=== PATIENT | female | born 1970 | race Caucasian/White ===

== ENCOUNTER 2016-08-22 13:38 | Inpatient (IN) | payer MEDICAID ==
[2016-08-22] MEDS ORDERED: Lactated Ringers 1,000 ML IV ONE (14:45)
[2016-08-22] MEDS ORDERED: HYDROmorphone 1 MG/ML Syringe IVPUSH ONE (14:45)
[2016-08-22] MEDS ORDERED: Ondansetron 4 MG/2 ML SDV IVPUSH ONE (14:45)
--- NOTE | 2016-08-22 14:48 | EDM.PDOC ---
[id number] KIDNEY PAIN Time Seen by Provider: 08/22/16 14:41 Source of Information: Reports: Patient, RN Notes Reviewed History Limitations: Reports: No Limitations - History of Present Illness INITIAL COMMENTS - FREE TEXT/NARRATIVE: 45-year-old female presents emergency department today with complaint of left flank pain, states he never had a kidney stone for however she has had urinary tract infections in the past, this feels like a kidney infection to her. She has been nauseated no vomiting she has had fevers no shortness of breath or chest pain no urgency or frequency or dysuria does have history of breast carcinoma status post mastectomy Bilateral Flank Pain Score (Numeric/FACES): 8 - Related Data Allergies Allergy/AdvReac Type Severity Reaction Status Date / Time morphine AdvReac Confusion Verified 08/22/16 14:04 Home Meds: Home Meds Insulin Aspart [NovoLOG] 4 - 10 units SQ QID 08/22/16 [History] Insulin Glarg,Human.Rec.Analog [LantUS Solostar] 30 unit SUBCUT BEDTIME [History] Past Medical History Genitourinary History: Reports: UTI, Recurrent 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: Musculoskeletal History: Reports: Fracture Psychiatric History: Reports: Anxiety, Depression Endocrine/Metabolic History: Reports: Diabetes, Type II Other Hematologic History: factor 5 Other Immunologic History: last chemo 2 years ago Oncologic (Cancer) History: Reports: Breast, Cervix Dermatologic History: Reports: Cellulitis - Past Surgical History GI Surgical History: Reports: Appendectomy Female Surgical History: Reports: Hysterectomy Oncologic Surgical History: Reports: Mastectomy Social & Family History - Tobacco Use Smoking Status *Q: Current Every Day Smoker Years of Tobacco use: 30 Packs/Tins Daily: 0.3 Used Tobacco, but Quit: No Second Hand Smoke Exposure: Yes - Caffeine Use Caffeine Use: Reports: Coffee, Energy Drinks, Soda - Alcohol Use Days Per Week of Alcohol Use: 0 - Recreational Drug Use Recreational Drug Use: Yes Drug Use in Last 12 Months: Yes Recreational Drug Type: Reports: Marijuana/Hashish Recreational Drug Use Frequency: Daily Recreational Drug Last Use: today ED ROS GENERAL - Review of Systems Review Of Systems: See Below Constitutional: Reports: Fever, Chills HEENT: Reports: No Symptoms Respiratory: Reports: No Symptoms, Cough GI/Abdominal: Reports: Nausea. Denies: Vomiting : Reports: Flank Pain Musculoskeletal: Reports: No Symptoms Skin: Reports: No Symptoms ED EXAM, GENERAL - Physical Exam Exam: See Below Exam Limited By: No Limitations General Appearance: Alert, Mild Distress Eye Exam: Bilateral Eye: Normal Inspection Head: Atraumatic, Normocephalic Neck: Normal Inspection, Supple, Non-Tender, Full Range of Motion Respiratory/Chest: No Respiratory Distress, Lungs Clear, Normal Breath Sounds, No Accessory Muscle Use Cardiovascular: Regular Rate, Rhythm, No Murmur GI/Abdominal: Soft, Non-Tender Back Exam: Normal Inspection, Full Range of Motion, CVA Tenderness (L). No: CVA Tenderness (R), Muscle Spasm, Paraspinal Tenderness, Vertebral Tenderness Extremities: Normal Inspection, Non-Tender, No Pedal Edema Course - Vital Signs Last Recorded V/S: Last Vital Signs Temp 96.8 F 08/26/16 07:16 Pulse 86 08/26/16 07:16 Resp 16 08/26/16 07:16 BP 137/79 08/26/16 07:16 Pulse Ox 97 08/26/16 07:16 - Orders/Labs/Meds Orders: Medication Orders Acetaminophen (Tylenol) 650 mg PO Q4H PRN PRN Reason: Pain (Mild 1-3)/fever Last Admin: 08/25/16 03:03 Dose: 650 mg Admin: 08/24/16 16:10 Dose: 650 mg Admin: 08/24/16 06:25 Dose: 650 mg Admin: 08/23/16 12:20 Dose: 650 mg Admin: 08/23/16 08:09 Dose: 650 mg Admin: 08/23/16 00:16 Dose: 650 mg Admin: 08/22/16 18:35 Dose: 650 mg Diphenhydramine HCl (Benadryl) 25 - 50 mg PO Q4H PRN PRN Reason: Itching Hydromorphone HCl (Dilaudid) 2 - 4 mg PO Q4H PRN PRN Reason: Pain Piperacillin/Tazobactam/ (Dextrose 3.375 gm/ Premix) 50 mls @ 100 mls/hr IV Q6H ANIL Last Admin: 08/26/16 03:20 Dose: 100 mls/hr Admin: 08/25/16 21:38 Dose: 100 mls/hr Admin: 08/25/16 16:29 Dose: 100 mls/hr Admin: 08/25/16 09:08 Dose: 100 mls/hr Admin: 08/25/16 03:03 Dose: 100 mls/hr Admin: 08/24/16 22:27 Dose: 100 mls/hr Admin: 08/24/16 14:58 Dose: 100 mls/hr Sodium Chloride (Normal Saline) 1,000 mls @ 75 mls/hr IV ASDIRECTED [facility] Last Admin: 08/26/16 07:11 Dose: 75 mls/hr Infusion: 08/26/16 05:50 Dose: 75 mls/hr Admin: 08/25/16 16:30 Dose: 75 mls/hr Infusion: 08/25/16 16:30 Dose: 75 mls/hr Admin: 08/25/16 09:05 Dose: 75 mls/hr Infusion: 08/25/16 07:01 Dose: 75 mls/hr Admin: 08/24/16 17:41 Dose: 75 mls/hr Aztreonam/Dextrose 1 gm/ (Premix) 50 mls @ 100 mls/hr IV Q8H [facility] Last Admin: 08/26/16 02:23 Dose: 100 mls/hr Admin: 08/25/16 17:19 Dose: 100 mls/hr Admin: 08/25/16 09:07 Dose: 100 mls/hr Admin: 08/25/16 02:22 Dose: 100 mls/hr Admin: 08/24/16 17:44 Dose: 100 mls/hr Insulin Aspart (Novolog) 0 unit SUBCUT QIDACANDBED [facility] PRN Reason: Protocol Last Admin: 08/25/16 21:35 Dose: 4 units Admin: 08/25/16 17:24 Dose: 4 units Admin: 08/25/16 13:14 Dose: Admin: 08/25/16 07:26 Dose: Admin: 08/24/16 22:26 Dose: Admin: 08/24/16 18:30 Dose: Not Given Admin: 08/24/16 13:17 Dose: Not Given Admin: 08/24/16 09:37 Dose: Not Given Admin: 08/23/16 21:27 Dose: 6 units Admin: 08/23/16 17:38 Dose: Admin: 08/23/16 12:17 Dose: 8 units Admin: 08/23/16 08:11 Dose: 6 units Admin: 08/22/16 21:40 Dose: 8 units Admin: 08/22/16 18:40 Dose: 6 units Insulin Aspart (Novolog) 4 unit SUBCUT TIDMEALS [facility] Last Admin: 08/25/16 17:24 Dose: Admin: 08/24/16 13:16 Dose: Not Given Admin: 08/24/16 07:30 Dose: 4 units Admin: 08/23/16 17:37 Dose: 4 units Admin: 08/23/16 12:17 Dose: 4 units Admin: 08/23/16 08:11 Dose: 4 units Admin: 08/22/16 18:39 Dose: 4 units Insulin Detemir (Levemir) 30 unit SUBCUT BEDTIME [facility] Last Admin: 08/25/16 21:18 Dose: Admin: 08/23/16 21:26 Dose: 30 units Admin: 08/22/16 21:38 Dose: 30 units Ketorolac Tromethamine (Toradol) 30 mg IVPUSH Q6H PRN PRN Reason: Pain/Fever Stop: 08/28/16 09:42 Last Admin: 08/24/16 00:08 Dose: 30 mg Admin: 08/23/16 17:28 Dose: 30 mg Admin: 08/23/16 11:03 Dose: 30 mg Lorazepam (Ativan) 1 mg IVPUSH Q4H PRN PRN Reason: Anxiety Last Admin: 08/25/16 20:04 Dose: 1 mg Admin: 08/25/16 07:20 Dose: 1 mg Admin: 08/24/16 01:29 Dose: 1 mg Magnesium Oxide (Magnesium Oxide) 400 mg PO DAILY [facility] Naloxone HCl (Narcan) 0.1 mg IV ASDIRECTED PRN PRN Reason: decreased respiratory rate Nicotine (Habitrol) 21 mg TRDERM DAILY [facility] Last Admin: 08/25/16 09:08 Dose: 21 mg Admin: 08/24/16 09:29 Dose: 21 mg Admin: 08/23/16 21:33 Dose: 21 mg Admin: 08/23/16 08:09 Dose: 21 mg Ondansetron HCl (Zofran Odt) 4 mg PO Q6H PRN PRN Reason: Nausea able to take PO Last Admin: 08/25/16 17:16 Dose: 4 mg Ondansetron HCl (Zofran) 4 mg IV Q6H PRN PRN Reason: Nausea/Vomiting Last Admin: 08/24/16 18:24 Dose: 4 mg Admin: 08/24/16 12:01 Dose: 4 mg Polyethylene Glycol (Miralax) 17 gm PO DAILY PRN PRN Reason: Constipation Senna/Docusate Sodium (Senna Plus) 1 tab PO BID PRN PRN Reason: Constipation Labs: Laboratory Tests 08/22/16 08/22/16 08/22/16 Range/Units 14:19 14:45 14:45 WBC 4.0 L (4.5-11.0) K/uL RBC 5.01 (3.30-5.50) M/uL Hgb 15.5 H (12.0-15.0) g/dL Hct 43.9 (36.0-48.0) % MCV 88 (80-98) fL MCH 31 (27-31) pg MCHC 35 (32-36) % Plt Count 166 (150-400) K/uL Neut % (Auto) 87 H (36-66) % Lymph % (Auto) 9 L (24-44) % Daniels % (Auto) 4 (2-6) % Eos % (Auto) 0 L (2-4) % Baso % (Auto) 1 (0-1) % Puncture Site ABG pH (7.350-7.450) ABG pCO2 (35.0-42.0) mmHg ABG pO2 (75.0-100.0) mmHg ABG HCO3 (22.0-26.0) mmol/L ABG Total CO2 (21.0-25.0) mmol/L ABG O2 Saturation (95.0-98.0) % ABG O2 Content (15.0-23.0) %vol ABG Base Excess mm/L ABG Hemoglobin (12.0-16.0) g/dL ABG Oxyhemoglobin % ABG Carboxyhemoglobin (0.0-1.6) % ABG Methemoglobin % [place]esham Test O2 Delivery Device Sodium 130 L (140-148) mmol/L Potassium 4.3 (3.6-5.2) mmol/L Chloride 93 L (100-108) mmol/L Carbon Dioxide 28 (21-32) mmol/L Anion Gap 13.3 (5.0-14.0) mmol/L BUN 8 (7-18) mg/dL Creatinine 1.0 (0.6-1.0) mg/dL Est Cr Clr Drug Dosing 56.29 mL/min Estimated GFR (MDRD) > 60 (>60) Glucose 549 H* (74-106) mg/dL Lactic Acid (0.4-2.0) mmol/L Calcium 9.1 (8.5-10.1) mg/dL Total Bilirubin 0.4 D (0.2-1.0) mg/dL AST 35 D (15-37) U/L ALT 54 D (12-78) U/L Alkaline Phosphatase 121 H (46-116) U/L C-Reactive Protein 2.78 H (0.0-0.3) mg/dL Total Protein 6.9 (6.4-8.2) g/dL Albumin 3.7 (3.4-5.0) g/dL Globulin 3.2 (2.3-3.5) g/dL Albumin/Globulin Ratio 1.2 (1.2-2.2) Urine Color Yellow Urine Appearance Clear Urine pH 6.5 (4.5-8.0) Ur Specific [place] 1.005 L (1.008-1.030) Urine Protein Negative (NEGATIVE) mg/dL Urine Glucose (UA) 1000 H (NEGATIVE) mg/dL Urine Ketones Negative (NEGATIVE) mg/dL Urine Occult Blood Negative (NEGATIVE) Urine Nitrite Negative (NEGATIVE) Urine Bilirubin Negative (NEGATIVE) Urine Urobilinogen Normal (NORMAL) mg/dL Ur Leukocyte Esterase Large (NEGATIVE) Urine RBC 0-5 (0-5) Urine WBC 75-100 H (0-5) Ur Epithelial Cells Few Amorphous Sediment Not seen Urine Bacteria Moderate Urine Mucus Not seen Ketones (NEGATIVE) 08/22/16 08/22/16 08/22/16 Range/Units 14:45 15:40 15:40 WBC (4.5-11.0) K/uL RBC (3.30-5.50) M/uL Hgb (12.0-15.0) g/dL Hct (36.0-48.0) % MCV (80-98) fL MCH (27-31) pg MCHC (32-36) % Plt Count (150-400) K/uL Neut % (Auto) (36-66) % Lymph % (Auto) (24-44) % Daniels % (Auto) (2-6) % Eos % (Auto) (2-4) % Baso % (Auto) (0-1) % Puncture Site Lt radial ABG pH 7.453 H (7.350-7.450) ABG pCO2 37.0 (35.0-42.0) mmHg ABG pO2 90.6 (75.0-100.0) mmHg ABG HCO3 25.5 (22.0-26.0) mmol/L ABG Total CO2 22.1 (21.0-25.0) mmol/L ABG O2 Saturation 97.6 (95.0-98.0) % ABG O2 Content 18.8 (15.0-23.0) %vol ABG Base Excess 2.2 mm/L ABG Hemoglobin 14.2 (12.0-16.0) g/dL ABG Oxyhemoglobin 94.2 % ABG Carboxyhemoglobin 2.7 H (0.0-1.6) % ABG Methemoglobin 0.8 % Hesham Test Passed O2 Delivery Device Room air Sodium (140-148) mmol/L Potassium (3.6-5.2) mmol/L Chloride (100-108) mmol/L Carbon Dioxide (21-32) mmol/L Anion Gap (5.0-14.0) mmol/L BUN (7-18) mg/dL Creatinine (0.6-1.0) mg/dL Est Cr Clr Drug Dosing mL/min Estimated GFR (MDRD) (>60) Glucose (74-106) mg/dL Lactic Acid 2.4 H (0.4-2.0) mmol/L Calcium (8.5-10.1) mg/dL Total Bilirubin (0.2-1.0) mg/dL AST (15-37) U/L ALT (12-78) U/L Alkaline Phosphatase (46-116) U/L C-Reactive Protein (0.0-0.3) mg/dL Total Protein (6.4-8.2) g/dL Albumin (3.4-5.0) g/dL Globulin (2.3-3.5) g/dL Albumin/Globulin Ratio (1.2-2.2) Urine Color Urine Appearance Urine pH (4.5-8.0) Ur Specific [place] (1.008-1.030) Urine Protein (NEGATIVE) mg/dL Urine Glucose (UA) (NEGATIVE) mg/dL Urine Ketones (NEGATIVE) mg/dL Urine Occult Blood (NEGATIVE) Urine Nitrite (NEGATIVE) Urine Bilirubin (NEGATIVE) Urine Urobilinogen (NORMAL) mg/dL Ur Leukocyte Esterase (NEGATIVE) Urine RBC (0-5) Urine WBC (0-5) Ur Epithelial Cells Amorphous Sediment Urine Bacteria Urine Mucus Ketones Negative (NEGATIVE) Meds: Medications Generic Name Dose Route Start Last Admin Trade Name Freq PRN Reason Stop Dose Admin Acetaminophen 650 mg 08/22/16 17:18 08/25/16 03:03 Tylenol PO 650 mg Q4H PRN Administration Pain (Mild 1-3)/fever Diphenhydramine HCl 25 - 50 mg 08/25/16 07:03 Benadryl PO Q4H PRN Itching Hydromorphone HCl 2 - 4 mg 08/26/16 07:17 Dilaudid PO Q4H PRN Pain Piperacillin/Tazobactam/ 50 mls @ 100 mls/hr 08/24/16 16:00 08/26/16 03:20 Dextrose 3.375 gm/ Premix IV 100 mls/hr Q6H ANIL Administration Sodium Chloride 1,000 mls @ 75 mls/hr 08/24/16 14:30 08/26/16 07:11 Normal Saline IV 75 mls/hr ASDIRECTED ANIL Administration Aztreonam/Dextrose 1 gm/ 50 mls @ 100 mls/hr 08/24/16 18:00 08/26/16 02:23 Premix IV 100 mls/hr Q8H ANIL Administration Insulin Aspart 0 unit 08/22/16 17:18 08/25/16 21:35 Novolog SUBCUT 4 units QIDACANDBED [facility] Administration Protocol Insulin Aspart 4 unit 08/22/16 17:18 08/25/16 17:24 Novolog SUBCUT Not Given TIDMEALS [facility] Insulin Detemir 30 unit 08/22/16 21:00 08/25/16 21:18 Levemir SUBCUT Not Given BEDTIME [facility] Ketorolac Tromethamine 30 mg 08/23/16 09:42 08/24/16 00:08 Toradol IVPUSH 08/28/16 09:42 30 mg Q6H PRN Administration Pain/Fever Lorazepam 1 mg 08/24/16 01:05 08/25/16 20:04 Ativan IVPUSH 1 mg Q4H PRN Administration Anxiety Magnesium Oxide 400 mg 08/26/16 09:00 Magnesium Oxide PO DAILY ANIL Naloxone HCl 0.1 mg 08/25/16 07:31 Narcan IV ASDIRECTED PRN decreased respiratory rate Nicotine 21 mg 08/23/16 09:00 08/25/16 09:08 Habitrol TRDERM 21 mg DAILY ANIL Administration Ondansetron HCl 4 mg 08/22/16 17:18 08/25/16 17:16 Zofran Odt PO 4 mg Q6H PRN Administration Nausea able to take PO Ondansetron HCl 4 mg 08/22/16 17:18 08/24/16 18:24 Zofran IV 4 mg Q6H PRN Administration Nausea/Vomiting Polyethylene Glycol 17 gm 08/22/16 17:18 Miralax PO DAILY PRN Constipation Senna/Docusate Sodium 1 tab 08/22/16 17:18 Senna Plus PO BID PRN Constipation Discontinued Medications Generic Name Dose Route Start Last Admin Trade Name Freq PRN Reason Stop Dose Admin Acetaminophen 1,000 mg 08/24/16 01:06 08/24/16 01:29 Tylenol Extra Strength PO 08/24/16 01:07 1,000 mg ONETIME ONE Administration Hydrocodone Bitart/Acetaminophen 1 - 2 tab 08/25/16 11:41 [place] 325-5 Mg PO Q4H PRN PAIN Bupivacaine HCl/Epinephrine Bitart Confirm 08/25/16 06:43 08/25/16 10:32 Marcaine 0.5%/Epinephrine 1:200,000 Administered 08/25/16 06:44 12 ml Dose Administration 50 ml .ROUTE .STK-MED ONE Dexamethasone Confirm 08/25/16 07:15 Dexamethasone Administered 08/25/16 07:16 Dose 4 mg .ROUTE .STK-MED ONE Diphenhydramine HCl 0 mg 08/24/16 20:17 08/24/16 20:25 Benadryl PO 50 mg Q4H PRN Administration Itching Fentanyl Confirm 08/25/16 07:14 Sublimaze Administered 08/25/16 07:15 Dose 250 mcg .ROUTE .STK-MED ONE Fentanyl Confirm 08/25/16 10:10 Sublimaze Administered 08/25/16 10:11 Dose 250 mcg .ROUTE .STK-MED ONE Glycopyrrolate Confirm 08/25/16 07:15 Administered 08/25/16 07:16 Dose 1 mg .ROUTE .STK-MED ONE Hydromorphone HCl 1 mg 08/22/16 14:45 08/22/16 15:02 Dilaudid IVPUSH 08/22/16 14:46 1 mg ONETIME ONE Administration Hydromorphone HCl 0.5 mg 08/22/16 17:18 08/26/16 04:52 Dilaudid IVPUSH 0.5 mg Q2H PRN Administration Pain (severe 7-10) Hydromorphone HCl Confirm 08/24/16 00:30 08/24/16 00:35 Dilaudid Administered 08/24/16 00:31 Not Given Dose 1 mg .ROUTE .STK-MED ONE Hydromorphone HCl 0 mg 08/25/16 07:28 08/25/16 08:07 Dilaudid Brand Ambassador 15 Mg In Ns 30 Ml IV 15 mg ASDIRECTED PRN Administration Pain Protocol Lactated Ringer's 1,000 mls @ 999 mls/hr 08/22/16 14:45 08/22/16 15:01 Ringers, Lactated IV 08/22/16 15:45 999 mls/hr BOLUS ONE Administration Sodium Chloride 1,000 mls @ 500 mls/hr 08/22/16 16:30 08/22/16 16:27 Normal Saline IV 08/22/16 18:31 500 mls/hr ASDIRECTED ANIL Administration Ceftriaxone Sodium 1 gm/ 50 mls @ 100 mls/hr 08/22/16 16:45 08/22/16 16:52 Sodium Chloride IV 08/22/16 17:14 100 mls/hr ONETIME ONE Administration Ceftriaxone Sodium 1 gm/ 50 mls @ 100 mls/hr 08/23/16 16:00 08/23/16 17:29 Sodium Chloride IV 100 mls/hr Q24H ANIL Administration Sodium Chloride 1,000 mls @ 125 mls/hr 08/22/16 17:18 08/24/16 07:51 Normal Saline IV 125 mls/hr ASDIRECTED ANIL Administration Vancomycin HCl 1 gm/ Sodium 250 mls @ 150 mls/hr 08/22/16 20:08 08/22/16 21: 34 Chloride IV 08/22/16 21:47 150 mls/hr ONETIME ONE Administration Sodium Chloride 70 mls @ 3 mls/sec 08/24/16 12:30 08/24/16 12:45 Normal Saline IV 08/24/16 12:31 3 mls/sec ONETIME ONE Administration Dextrose/Lactated Ringer's 1,000 mls @ 100 mls/hr 08/25/16 11:45 Dextrose 5%-Lactated Ringers IV ASDIRECTED ANIL Insulin Aspart 11 unit 08/23/16 17:29 08/23/16 17:49 Novolog SUBCUT 08/23/16 17:30 11 units ONETIME ONE Administration Iopamidol 76 ml 08/24/16 12:30 08/24/16 12:45 Isovue-300 (61%) IV 08/24/16 12:31 100 ml . DIRECTED PRN Administration RADIOLOGY EXAM Neostigmine Methylsulfate Confirm 08/25/16 07:15 Neostigmine Administered 08/25/16 07:16 Dose 5 mg .ROUTE .STK-MED ONE Nicotine 21 mg 08/22/16 17:45 08/22/16 18:02 Habitrol TRDERM 08/22/16 17:46 21 mg ONETIME ONE Administration Ondansetron HCl 4 mg 08/22/16 14:45 08/22/16 15:06 Zofran IVPUSH 08/22/16 14:46 4 mg ONETIME ONE Administration Ondansetron HCl Confirm 08/25/16 07:15 Zofran Administered 08/25/16 07:16 Dose 4 mg .ROUTE .STK-MED ONE Oxycodone HCl 2.5 - 5 mg 08/22/16 17:18 08/26/16 03:21 Oxycodone PO 5 mg Q4H PRN Administration Pain (moderate 4-6) Propofol Confirm 08/25/16 07:15 Diprivan 20 Ml Administered 08/25/16 07:16 Dose 200 mg .ROUTE .STK-MED ONE Rocuronium [place] Confirm 08/25/16 07:15 Zemuron Administered 08/25/16 07:16 Dose 50 mg .ROUTE .STK-MED ONE Sodium Chloride 10 ml 08/24/16 12:30 08/24/16 12:45 Saline Flush FLUSH 08/24/16 12:45 10 ml ONETIME PRN Administration PER RADIOLOGY PROTOCOL Succinylcholine Chloride Confirm 08/25/16 07:15 Succinylcholine In Ns Pf Administered 08/25/16 07:16 Dose 200 mg .ROUTE .STK-MED ONE Departure - Departure Time of Disposition: 07:37 Disposition: Admitted As Inpatient 67 Condition: Fair Clinical Impression: Pyelonephritis - Discharge Information - Assessment/Plan Plan: assesment: pyelonephritis with sepsis Plan admit to hospitalist service
[2016-08-22] MEDS ORDERED: Sodium Chloride 0.9% 1,000 ML IV SCH (16:30)
[2016-08-22] MEDS ORDERED: cefTRIAXone 1 GM in Sodium Chloride 0.9% 50 ML IV SCH (16:30)
--- NOTE | 2016-08-22 16:37 | PCM.HP ---
H&P History of Present Illness - General Date of Service: 08/22/16 Admit Problem/Dx: Admission Diagnosis/Problem Admission Diagnosis/Problem Pyelonephritis Source of Information: Patient, Provider History Limitations: Reports: No Limitations - History of Present Illness Initial Comments - Free Text/Narative: Larua presented to the emergency room today with 24 hours of progressive left flank pain. This is a moderate to severe throbbing pain that radiates from the left flank to her mid back. She has tried ibuprofen at home without any improvement. No obvious trigger to make things worse. Moving or sitting still do not necessarily make the pain worse or better. She has had subjective fevers and chills at home. A complaints of nausea, vomiting. She has been a little bit on the constipated side. She has noticed urinary frequency for the last few days but thought it was because her blood sugars were running high. No complaints of chest pain or shortness of breath. She has had a previous episode of pyelonephritis and this feels similar. Her last chemotherapy was 2 years ago. Bilateral Flank Pain Score (Numeric/FACES): 8 - Related Data Allergies/Adverse Reactions: Allergies Allergy/AdvReac Type Severity Reaction Status Date / Time morphine AdvReac Confusion Verified 08/22/16 14:04 Home Medications: Home Meds Insulin Aspart [NovoLOG] 4 - 10 units SQ QID 08/22/16 [History] Insulin Glarg,Human.Rec.Analog [LantUS Solostar] 30 unit SUBCUT BEDTIME [History] Past Medical History Genitourinary History: Reports: UTI, Recurrent [place] History: Reports: Musculoskeletal History: Reports: Fracture Psychiatric History: Reports: Anxiety, Depression Endocrine/Metabolic History: Reports: Diabetes, Type II Other Hematologic History: factor 5 Other Immunologic History: last chemo 2 years ago Oncologic (Cancer) History: Reports: Breast, Cervix Dermatologic History: Reports: Cellulitis - Past Surgical History GI Surgical History: Reports: Appendectomy Female Surgical History: Reports: Hysterectomy Oncologic Surgical History: Reports: Mastectomy Social & Family History - Family History : Reports: Renal Disease/Insufficiency (brother needed kidney transplant, never needed dialysis) - Tobacco Use Smoking Status *Q: Current Every Day Smoker Years of Tobacco use: 30 Packs/Tins Daily: 0.3 Used Tobacco, but Quit: No Second Hand Smoke Exposure: Yes - Caffeine Use Caffeine Use: Reports: Coffee, Energy Drinks, Soda - Alcohol Use Days Per Week of Alcohol Use: 0 - Recreational Drug Use Recreational Drug Use: Yes Drug Use in Last 12 Months: Yes Recreational Drug Type: Reports: Marijuana/Hashish Recreational Drug Use Frequency: Daily Recreational Drug Last Use: today H&P Review of Systems - Review of Systems: Review Of Systems: See Below Free Text/Narrative: A complete 12 point review of systems was obtained. Pertinent positives and negatives are noted in the history of present illness. All other systems were reviewed and were negative except as noted. Exam - Exam Exam: See Below - Vital Signs Vital Signs: Last Vital Signs Temp 37.6 C 08/22/16 15:11 Pulse 90 08/22/16 16:11 Resp 18 08/22/16 15:11 BP 122/65 08/22/16 16:11 Pulse Ox 100 08/22/16 16:11 Weight: 51.7 kg - Exam Quality Assessment: No: Supplemental Oxygen General: Alert, Oriented, Cooperative. No: Mild Distress HEENT: Mucosa Moist & Wever. No: Scleral Icterus Neck: Supple, Trachea Midline. No: Lymphadenopathy, Thyromegaly Lungs: Clear to Auscultation, Normal Respiratory Effort Cardiovascular: Regular Rhythm, Tachycardia Abdomen: Normal Bowel Sounds, Soft, Tenderness (moderate left flank pain). No: Distention, Mass Back Exam: Normal Inspection, Full Range of Motion Extremities: Normal Inspection, Normal Pulses. No: Clubbing, Cyanosis, Edema Peripheral Pulses: 2+: Dorsalis Pedis (L), Dorsalis Pedis (R) Skin: Warm, Dry Neuro Extensive - Mental Status: Alert, Oriented x3, Nl Response to Commands Neuro Extensive - Motor, Sensory, Reflexes: CN II-XII Intact. No: Dysarthria, Abnormal Motor, Tremor Psychiatric: Alert, Normal Affect - Patient Data Lab Results Last 24 hrs: Laboratory Results - last 24 hr 08/22/16 08/22/16 08/22/16 Range/Units 14:19 14:45 14:45 WBC 4.0 L (4.5-11.0) K/uL RBC 5.01 (3.30-5.50) M/uL Hgb 15.5 H (12.0-15.0) g/dL Hct 43.9 (36.0-48.0) % MCV 88 (80-98) fL MCH 31 (27-31) pg MCHC 35 (32-36) % Plt Count 166 (150-400) K/uL Neut % (Auto) 87 H (36-66) % Lymph % (Auto) 9 L (24-44) % [place] % (Auto) 4 (2-6) % Eos % (Auto) 0 L (2-4) % Baso % (Auto) 1 (0-1) % Puncture Site ABG pH (7.350-7.450) ABG pCO2 (35.0-42.0) mmHg ABG pO2 (75.0-100.0) mmHg ABG HCO3 (22.0-26.0) mmol/L ABG Total CO2 (21.0-25.0) mmol/L ABG O2 Saturation (95.0-98.0) % ABG O2 Content (15.0-23.0) %vol ABG Base Excess mm/L ABG Hemoglobin (12.0-16.0) g/dL ABG Oxyhemoglobin % ABG Carboxyhemoglobin (0.0-1.6) % ABG Methemoglobin % Hesham Test O2 Delivery Device Sodium 130 L (140-148) mmol/L Potassium 4.3 (3.6-5.2) mmol/L Chloride 93 L (100-108) mmol/L Carbon Dioxide 28 (21-32) mmol/L Anion Gap 13.3 (5.0-14.0) mmol/L BUN 8 (7-18) mg/dL Creatinine 1.0 (0.6-1.0) mg/dL Est Cr Clr Drug Dosing 56.29 mL/min Estimated GFR (MDRD) > 60 (>60) Glucose 549 H* (74-106) mg/dL Lactic Acid (0.4-2.0) mmol/L Calcium 9.1 (8.5-10.1) mg/dL Total Bilirubin 0.4 D (0.2-1.0) mg/dL AST 35 D (15-37) U/L ALT 54 D (12-78) U/L Alkaline Phosphatase 121 H (46-116) U/L C-Reactive Protein 2.78 H (0.0-0.3) mg/dL Total Protein 6.9 (6.4-8.2) g/dL Albumin 3.7 (3.4-5.0) g/dL Globulin 3.2 (2.3-3.5) g/dL Albumin/Globulin Ratio 1.2 (1.2-2.2) Urine Color Yellow Urine Appearance Clear Urine pH 6.5 (4.5-8.0) Ur Specific [place] 1.005 L (1.008-1.030) Urine Protein Negative (NEGATIVE) mg/dL Urine Glucose (UA) 1000 H (NEGATIVE) mg/dL Urine Ketones Negative (NEGATIVE) mg/dL Urine Occult Blood Negative (NEGATIVE) Urine Nitrite Negative (NEGATIVE) Urine Bilirubin Negative (NEGATIVE) Urine Urobilinogen Normal (NORMAL) mg/dL Ur Leukocyte Esterase Large (NEGATIVE) Urine RBC 0-5 (0-5) Urine WBC 75-100 H (0-5) Ur Epithelial Cells Few Amorphous Sediment Not seen Urine Bacteria Moderate Urine Mucus Not seen Ketones (NEGATIVE) 08/22/16 08/22/16 08/22/16 Range/Units 14:45 15:40 15:40 WBC (4.5-11.0) K/uL RBC (3.30-5.50) M/uL Hgb (12.0-15.0) g/dL Hct (36.0-48.0) % MCV (80-98) fL MCH (27-31) pg MCHC (32-36) % Plt Count (150-400) K/uL Neut % (Auto) (36-66) % Lymph % (Auto) (24-44) % Sierra % (Auto) (2-6) % Eos % (Auto) (2-4) % Baso % (Auto) (0-1) % Puncture Site Lt radial ABG pH 7.453 H (7.350-7.450) ABG pCO2 37.0 (35.0-42.0) mmHg ABG pO2 90.6 (75.0-100.0) mmHg ABG HCO3 25.5 (22.0-26.0) mmol/L ABG Total CO2 22.1 (21.0-25.0) mmol/L ABG O2 Saturation 97.6 (95.0-98.0) % ABG O2 Content 18.8 (15.0-23.0) %vol ABG Base Excess 2.2 mm/L ABG Hemoglobin 14.2 (12.0-16.0) g/dL ABG Oxyhemoglobin 94.2 % ABG Carboxyhemoglobin 2.7 H (0.0-1.6) % ABG Methemoglobin 0.8 % Hesham Test Passed O2 Delivery Device Room air Sodium (140-148) mmol/L Potassium (3.6-5.2) mmol/L Chloride (100-108) mmol/L Carbon Dioxide (21-32) mmol/L Anion Gap (5.0-14.0) mmol/L BUN (7-18) mg/dL Creatinine (0.6-1.0) mg/dL Est Cr Clr Drug Dosing mL/min Estimated GFR (MDRD) (>60) Glucose (74-106) mg/dL Lactic Acid 2.4 H (0.4-2.0) mmol/L Calcium (8.5-10.1) mg/dL Total Bilirubin (0.2-1.0) mg/dL AST (15-37) U/L ALT (12-78) U/L Alkaline Phosphatase (46-116) U/L C-Reactive Protein (0.0-0.3) mg/dL Total Protein (6.4-8.2) g/dL Albumin (3.4-5.0) g/dL Globulin (2.3-3.5) g/dL Albumin/Globulin Ratio (1.2-2.2) Urine Color Urine Appearance Urine pH (4.5-8.0) Ur Specific [place] (1.008-1.030) Urine Protein (NEGATIVE) mg/dL Urine Glucose (UA) (NEGATIVE) mg/dL Urine Ketones (NEGATIVE) mg/dL Urine Occult Blood (NEGATIVE) Urine Nitrite (NEGATIVE) Urine Bilirubin (NEGATIVE) Urine Urobilinogen (NORMAL) mg/dL Ur Leukocyte Esterase (NEGATIVE) Urine RBC (0-5) Urine WBC (0-5) Ur Epithelial Cells Amorphous Sediment Urine Bacteria Urine Mucus Ketones Negative (NEGATIVE) Result Diagrams: 08/22/16 14:45 08/22/16 14:45 *Q Meaningful Use (ADM) - VTE *Q VTE Criteria *Q: - VTE Risk Assess *Q Each Risk Factor Represents 1 Point: None Total Score 1 Point Risk Factors: 0 Each Risk Factor Represents 2 Points: Previous Malignancy Total Score 2 Point Risk Factors: 2 Each Risk Factor Represents 3 Points: None Total Score 3 Point Risk Factors: 0 Each Risk Factor Represents 5 Points: None Total Score 5 Point Risk Factors: 0 Venous Thromboembolism Risk Factor Score *Q: 2 - Stroke *Q Stroke Criteria *Q: - AMI *Q AMI Criteria *Q: - Problem List (1) Pyelonephritis SNOMED Code(s): 43770853 ICD Code: N12 - TUBULO-INTERSTITIAL NEPHRITIS, NOT SPCF ACUTE OR CHRONIC Status: Acute Current Visit: Yes (2) Diabetes mellitus with hyperglycemia SNOMED Code(s): 61041386, 48238272, 351457386 ICD Code: E11.65 - TYPE 2 DIABETES MELLITUS WITH HYPERGLYCEMIA Status: Acute Current Visit: Yes Qualifiers: Diabetes mellitus type: type 1 Qualified Code(s): E10.65 - Type 1 diabetes mellitus with hyperglycemia (3) Tobacco dependence SNOMED Code(s): 66956734 ICD Code: F17.200 - NICOTINE DEPENDENCE, UNSPECIFIED, UNCOMPLICATED Status : Chronic Current Visit: Yes Problem List Initiated/Reviewed/Updated: Yes Orders Last 24hrs: Active Orders 24 hr Category Date Time Status Patient Status Manage Transfer [TRANSFER] Routine ADT 08/22/16 16:20 Ordered CULTURE BLOOD [BC] Urgent Lab 08/22/16 15:40 Received CULTURE BLOOD [BC] Urgent Lab 08/22/16 15:52 Received CULTURE URINE [RM] Routine Lab 08/22/16 16:01 Received Sodium Chloride 0.9% [Normal Saline] 1,000 ml Med 08/22/16 16:30 Active IV ASDIRECTED cefTRIAXone [Rocephin] 1 gm Med 08/22/16 16:30 Active Sodium Chloride 0.9% [Normal Saline] 50 ml IV Q24H Blood Culture x2 Reflex Set [OM.PC] Urgent Oth 08/22/16 15:40 Ordered Resuscitation Status Routine Resus Stat 08/22/16 16:21 Ordered Medication Orders Sodium Chloride (Normal Saline) 1,000 mls @ 500 mls/hr IV ASDIRECTED ANIL Stop: 08/22/16 18:31 Last Admin: 08/22/16 16:27 Dose: 500 mls/hr Ceftriaxone Sodium 1 gm/ (Sodium Chloride) 50 mls @ 100 mls/hr IV Q24H ANIL Assessment/Plan Comment:: Assessment and plan - Left-sided pyelonephritis With sepsis - evidence for sepsis includes tachycardia , elevated lactic acid level as well as significant derangement in blood sugar control. She is receiving IV fluids and will be receiving antibiotics shortly. She is immunosuppressed with previous malignancy though she has not had chemotherapy in approximately 2 years. -Ceftriaxone -IV fluids -Repeat lactic acid -Follow-up urine culture -Pain control Insulin-dependent diabetes mellitus with complication - Sounds like long-term control is suboptimal. -Continue home regimen with long-acting and meal-time insulin -Sliding-scale insulin Tobacco dependence - No interest in quitting. She is interested in nicotine patch. Maintenance issues - - DVT prophylaxis - mechanical - GI prophylaxis - not indicated - Nutrition - consistent carbohydrates - Caldwell catheter - not indicated CODE STATUS - full code Admission justification - This patient will be admitted for inpatient services and is medically appropriate meeting medical necessity for inpatient admission as outlined in my documentation. I reasonably expect the patient will require inpatient services that span a period time over 2 midnights. I reasonably expect this patient to be discharged or transferred within 96 hours [facility]. Disposition - anticipate discharge to home after the hospital stay Primary care physician - none Filipe De Paz M.D.
[2016-08-22] MEDS ORDERED: cefTRIAXone 1 GM in Sodium Chloride 0.9% 50 ML IV ONE (16:45)
[2016-08-22] MEDS ORDERED: Ondansetron 4 MG Tab.DIS PO PRN (17:18)
[2016-08-22] MEDS ORDERED: Polyethylene Glycol 3350 Powder 17 GM Packet PO PRN (17:18)
[2016-08-22] MEDS ORDERED: Nicotine 21 MG/24 Hr Patch TRDERM ONE (17:45)
[2016-08-22] MEDS: oxyCODONE 5 MG Tab PO PRN (18:35)
[2016-08-22] MEDS: Acetaminophen 325 MG Tab PO PRN (18:35)
[2016-08-22] MEDS: Insulin Aspart 100 Units/ML 3 ML Pen SUBCUT SCH ×3 (18:39→21:40)
[2016-08-22] MEDS: Sodium Chloride 0.9% 1,000 ML IV SCH (19:17)
[2016-08-22] MEDS: Insulin Detemir 100 Units/ML 3 ML Pen SUBCUT SCH (21:38)
[2016-08-23] MEDS: Acetaminophen 325 MG Tab PO PRN ×3 (00:16→12:20)
[2016-08-23] MEDS: oxyCODONE 5 MG Tab PO PRN ×5 (00:17→21:41)
[2016-08-23] MEDS: Sodium Chloride 0.9% 1,000 ML IV SCH (05:54)
[2016-08-23] MEDS: Nicotine 21 MG/24 Hr Patch TRDERM SCH ×2 (08:09→21:33)
[2016-08-23] MEDS: Insulin Aspart 100 Units/ML 3 ML Pen SUBCUT SCH ×7 (08:11→21:27)
--- NOTE | 2016-08-23 10:25 | PCM.PN ---
- General Info Date of Service: 08/23/16 Functional Status: Reports: pain controlled, tolerating diet - Review of Systems General: Reports: Fever, Weakness Genitourinary: Reports: flank pain Systems Review Comment:: No acute events overnight but she did have a temperature to 104 early this morning. Her left-sided abdominal pain/flank pain seems a little better this morning. Appetite has been good. Blood sugars were improving overnight. No complaints of vomiting or diarrhea. No complaints of shortness of breath. Lactic acid level normalized. - Patient Data Vitals - most recent: Last Vital Signs Temp 37.6 C 08/23/16 09:32 Pulse 92 08/23/16 09:32 Resp 16 08/23/16 09:32 BP 120/60 08/23/16 07:26 Pulse Ox 95 08/23/16 09:32 Weight - most recent: 51.7 kg I&O - last 24 hours: Intake & Output 08/22/16 08/23/16 08/23/16 22:59 06:59 14:59 Intake Total 1650 1547 240 Balance 1650 1547 240 Lab Results last 24 hrs: Laboratory Results - last 24 hr 08/22/16 08/23/16 08/23/16 Range/Units 19:30 05:11 05:11 WBC 3.7 L (4.5-11.0) K/uL RBC 4.54 (3.30-5.50) M/uL Hgb 13.9 (12.0-15.0) g/dL Hct 41.1 (36.0-48.0) % MCV 91 (80-98) fL MCH 31 (27-31) pg MCHC 34 (32-36) % Plt Count 121 L (150-400) K/uL Sodium 134 L (140-148) mmol/L Potassium 3.9 (3.6-5.2) mmol/L Chloride 101 (100-108) mmol/L Carbon Dioxide 25 (21-32) mmol/L Anion Gap 11.9 (5.0-14.0) mmol/L BUN 7 (7-18) mg/dL Creatinine 0.7 (0.6-1.0) mg/dL Est Cr Clr Drug Dosing 80.41 mL/min Estimated GFR (MDRD) > 60 (>60) Glucose 337 H (74-106) mg/dL Lactic Acid 1.4 (0.4-2.0) mmol/L Calcium 7.8 L (8.5-10.1) mg/dL Med Orders - Current: Current Medications Acetaminophen (Tylenol) 650 mg PO Q4H PRN PRN Reason: Pain (Mild 1-3)/fever Last Admin: 08/23/16 08:09 Dose: 650 mg Hydromorphone HCl (Dilaudid) 0.5 mg IVPUSH Q2H PRN PRN Reason: Pain (severe 7-10) Ceftriaxone Sodium 1 gm/ (Sodium Chloride) 50 mls @ 100 mls/hr IV Q24H [facility] Sodium Chloride (Normal Saline) 1,000 mls @ 125 mls/hr IV ASDIRECTED [facility] Last Admin: 08/23/16 05:54 Dose: 125 mls/hr Insulin Aspart (Novolog) 0 unit SUBCUT QIDACANDBED [facility] PRN Reason: Protocol Last Admin: 08/23/16 08:11 Dose: 6 units Insulin Aspart (Novolog) 4 unit SUBCUT TIDMEALS [facility] Last Admin: 08/23/16 08:11 Dose: 4 units Insulin Detemir (Levemir) 30 unit SUBCUT BEDTIME [facility] Last Admin: 08/22/16 21:38 Dose: 30 units Ketorolac Tromethamine (Toradol) 30 mg IVPUSH Q6H PRN PRN Reason: Pain/Fever Stop: 08/28/16 09:42 Nicotine (Habitrol) 21 mg TRDERM DAILY [facility] Last Admin: 08/23/16 08:09 Dose: 21 mg Ondansetron HCl (Zofran Odt) 4 mg PO Q6H PRN PRN Reason: Nausea able to take PO Ondansetron HCl (Zofran) 4 mg IV Q6H PRN PRN Reason: Nausea/Vomiting Oxycodone HCl (Oxycodone) 2.5 - 5 mg PO Q4H PRN PRN Reason: Pain (moderate 4-6) Last Admin: 08/23/16 05:42 Dose: 5 mg Polyethylene Glycol (Miralax) 17 gm PO DAILY PRN PRN Reason: Constipation Senna/Docusate Sodium (Senna Plus) 1 tab PO BID PRN PRN Reason: Constipation Discontinued Medications Hydromorphone HCl (Dilaudid) 1 mg IVPUSH ONETIME ONE Stop: 08/22/16 14:46 Last Admin: 08/22/16 15:02 Dose: 1 mg Lactated Ringer's (Ringers, Lactated) 1,000 mls @ 999 mls/hr IV BOLUS ONE Stop: 08/22/16 15:45 Last Admin: 08/22/16 15:01 Dose: 999 mls/hr Sodium Chloride (Normal Saline) 1,000 mls @ 500 mls/hr IV ASDIRECTED ANIL Stop: 08/22/16 18:31 Last Admin: 08/22/16 16:27 Dose: 500 mls/hr Ceftriaxone Sodium 1 gm/ (Sodium Chloride) 50 mls @ 100 mls/hr IV ONETIME ONE Stop: 08/22/16 17:14 Last Admin: 08/22/16 16:52 Dose: 100 mls/hr Vancomycin HCl 1 gm/ Sodium (Chloride) 250 mls @ 150 mls/hr IV ONETIME ONE Stop: 08/22/16 21:47 Last Admin: 08/22/16 21:34 Dose: 150 mls/hr Nicotine (Habitrol) 21 mg TRDERM ONETIME ONE Stop: 08/22/16 17:46 Last Admin: 08/22/16 18:02 Dose: 21 mg Ondansetron HCl (Zofran) 4 mg IVPUSH ONETIME ONE Stop: 08/22/16 14:46 Last Admin: 08/22/16 15:06 Dose: 4 mg - Exam Quality Assessment: No: supplemental oxygen General: alert, oriented, cooperative, no acute distress Neck: supple Lungs: Normal respiratory effort Cardiovascular: Regular Rate, Regular Rhythm Abdomen: soft, no distension Extremities: no edema Skin: warm, dry Psy/Mental Status: alert, normal affect - Problem List & Annotations (1) Pyelonephritis SNOMED Code(s): 31154819 Code(s): N12 - TUBULO-INTERSTITIAL NEPHRITIS, NOT SPCF ACUTE OR CHRONIC Status: Acute Current Visit: Yes (2) Diabetes mellitus with hyperglycemia SNOMED Code(s): 94028992, 81204648, 140657617 Code(s): E11.65 - TYPE 2 DIABETES MELLITUS WITH HYPERGLYCEMIA Status: Acute Current Visit: Yes Qualifiers: Diabetes mellitus type: type 1 Qualified Code(s): E10.65 - Type 1 diabetes mellitus with hyperglycemia (3) Tobacco dependence SNOMED Code(s): 82709173 Code(s): F17.200 - NICOTINE DEPENDENCE, UNSPECIFIED, UNCOMPLICATED Status: Chronic Current Visit: Yes - Problem List Review Problem List Initiated/Reviewed/Updated: Yes - My Orders Last 24 Hours: My Active Orders 08/22/16 16:21 Resuscitation Status Routine 08/22/16 17:18 Patient Status [ADT] Routine Communication Order [RC] PRN Communication Order [RC] PRN Diabetes Education [RC] Click to Edit Intake and Output [RC] QSHIFT Notify Provider Vital Signs [RC] ASDIRECTED Notify Provider [RC] PRN Oxygen Therapy [RC] PRN Up ad Farrah [RC] ASDIRECTED VTE/DVT Education [RC] Per Unit Routine Vital Signs [RC] Q4H Acetaminophen [Tylenol] 650 mg PO Q4H PRN Docusate Sodium/Sennosides [Senna Plus] 1 tab PO BID PRN HYDROmorphone [Dilaudid] 0.5 mg IVPUSH Q2H PRN Insulin Aspart [NovoLOG] 4 unit SUBCUT TIDMEALS Insulin Aspart [NovoLOG] See Protocol SUBCUT QIDACANDBED Ondansetron [Zofran ODT] 4 mg PO Q6H PRN Ondansetron [Zofran] 4 mg IV Q6H PRN Polyethylene Glycol 3350 [MiraLAX] 17 gm PO DAILY PRN Sodium Chloride 0.9% [Normal Saline] 1,000 ml IV ASDIRECTED oxyCODONE 2.5 - 5 mg PO Q4H PRN Sequential Compression Device [OM.PC] Per Unit Routine 08/22/16 21:00 Insulin Detemir [Levemir] 30 unit SUBCUT BEDTIME 08/22/16 Dinner Consistent Carbohydrate Diet [DIET] 08/23/16 09:00 Nicotine [Habitrol] 21 mg TRDERM DAILY 08/23/16 09:42 Ketorolac [Toradol] 30 mg IVPUSH Q6H PRN 08/23/16 11:30 GLUCOSE POC LAB TO COLLECT [POC] QIDACANDBED 08/23/16 16:00 cefTRIAXone [Rocephin] 1 gm Sodium Chloride 0.9% [Normal Saline] 50 ml IV Q24H 08/23/16 16:30 GLUCOSE POC LAB TO COLLECT [POC] QIDACANDBED 08/23/16 21:00 GLUCOSE POC LAB TO COLLECT [POC] QIDACANDBED 08/24/16 05:00 BASIC METABOLIC PANEL,BMP [CHEM] Timed CBC W/O DIFF,HEMOGRAM [HEME] Timed (1) 08/24/16 07:30 GLUCOSE POC LAB TO COLLECT [POC] QIDACANDBED 08/24/16 11:30 GLUCOSE POC LAB TO COLLECT [POC] QIDACANDBED 08/24/16 16:30 GLUCOSE POC LAB TO COLLECT [POC] QIDACANDBED 08/24/16 21:00 GLUCOSE POC LAB TO COLLECT [POC] QIDACANDBED 08/25/16 07:30 GLUCOSE POC LAB TO COLLECT [POC] QIDACANDBED 08/25/16 11:30 GLUCOSE POC LAB TO COLLECT [POC] QIDACANDBED 08/25/16 16:30 GLUCOSE POC LAB TO COLLECT [POC] QIDACANDBED 08/25/16 21:00 GLUCOSE POC LAB TO COLLECT [POC] QIDACANDBED 08/26/16 07:30 GLUCOSE POC LAB TO COLLECT [POC] QIDACANDBED 08/26/16 11:30 GLUCOSE POC LAB TO COLLECT [POC] QIDACANDBED 08/26/16 16:30 GLUCOSE POC LAB TO COLLECT [POC] QIDACANDBED 08/26/16 21:00 GLUCOSE POC LAB TO COLLECT [POC] QIDACANDBED 08/27/16 07:30 GLUCOSE POC LAB TO COLLECT [POC] QIDACANDBED 08/27/16 11:30 GLUCOSE POC LAB TO COLLECT [POC] QIDACANDBED 08/27/16 16:30 GLUCOSE POC LAB TO COLLECT [POC] QIDACANDBED 08/27/16 21:00 GLUCOSE POC LAB TO COLLECT [POC] QIDACANDBED 08/28/16 07:30 GLUCOSE POC LAB TO COLLECT [POC] QIDACANDBED - Plan Plan:: Assessment and plan - Left-sided pyelonephritis With sepsis - sepsis seems to have resolved. High fever this morning but otherwise clinically doing better today. Tolerating antibiotics. Cultures are pending. -Ceftriaxone -IV fluids -Follow-up urine culture -Pain control Insulin-dependent diabetes mellitus with complication - blood sugars running high. Appetite has been excellent. -Continue home regimen with long-acting and meal-time insulin -Sliding-scale insulin Tobacco dependence - No interest in quitting. She is interested in nicotine patch. Maintenance issues - - DVT prophylaxis - mechanical - GI prophylaxis - not indicated - Nutrition - consistent carbohydrates Disposition - anticipate discharge to home after the hospital stay Filipe De Paz M.D.
[2016-08-23] MEDS: Ketorolac 30 MG/ML SDV IVPUSH PRN ×2 (11:03→17:28)
[2016-08-23] MEDS ORDERED: cefTRIAXone 1 GM in Sodium Chloride 0.9% 50 ML IV SCH (16:00)
[2016-08-23] MEDS ORDERED: Insulin Aspart 100 Units/ML 3 ML Pen SUBCUT ONE (17:29)
[2016-08-23] MEDS: Insulin Detemir 100 Units/ML 3 ML Pen SUBCUT SCH (21:26)
[2016-08-24] MEDS: Sodium Chloride 0.9% 1,000 ML IV SCH ×3 (00:08→17:41)
[2016-08-24] MEDS: Ketorolac 30 MG/ML SDV IVPUSH PRN (00:08)
[2016-08-24] MEDS ORDERED: HYDROmorphone 1 MG/ML Syringe ONE (00:30)
[2016-08-24] MEDS: HYDROmorphone 0.5 MG/0.5 ML Syringe IVPUSH PRN ×4 (00:34→18:24)
[2016-08-24] MEDS ORDERED: Acetaminophen 500 MG Tab PO ONE (01:06)
--- NOTE | 2016-08-24 01:10 | PCM.SN ---
- Free Text/Narrative Note: time 00:30 am: call from [address] [place] [address]; Ms. Thomas is having chest pain. feels like a band going around the chest; vital signs; T.100.9, blood pressure 161/99 a; chest pain p; order EKG, Troponin, cbc, bmp.
[2016-08-24] MEDS: LORazepam 2 MG/ML MDV IVPUSH PRN (01:29)
[2016-08-24] MEDS: Acetaminophen 325 MG Tab PO PRN ×2 (06:25→16:10)
[2016-08-24] MEDS: oxyCODONE 5 MG Tab PO PRN ×2 (06:25→10:34)
[2016-08-24] MEDS: Insulin Aspart 100 Units/ML 3 ML Pen SUBCUT SCH ×7 (07:30→22:26)
[2016-08-24] MEDS: Nicotine 21 MG/24 Hr Patch TRDERM SCH (09:29)
[2016-08-24] MEDS: Ondansetron 4 MG/2 ML SDV IV PRN ×2 (12:01→18:24)
--- NOTE | 2016-08-24 12:10 | PCM.PN ---
- General Info Date of Service: 08/24/16 Functional Status: Reports: pain controlled, urinating - Review of Systems General: Reports: Fever, Weakness Gastrointestinal: Reports: Abdominal pain, Vomiting Musculoskeletal: Reports: back pain, leg pain Systems Review Comment:: Fever overnight but not as high as yesterday. Back pain seems persistent but maybe a little better today. No complaints of significant abdominal pain. She has had a couple of episodes of emesis this morning. Has pain that radiates down her legs today. No positive cultures. Urine culture is growing mixed juan jose. - Patient Data Vitals - most recent: Last Vital Signs Temp 37.9 C 08/24/16 11:49 Pulse 100 08/24/16 11:49 Resp 18 08/24/16 11:49 BP 130/74 08/24/16 11:49 Pulse Ox 96 08/24/16 11:49 Weight - most recent: 51.7 kg I&O - last 24 hours: Intake & Output 08/23/16 08/24/16 08/24/16 22:59 06:59 14:59 Intake Total 4725 480 Output Total 400 200 Balance 4725 -400 280 Lab Results last 24 hrs: Laboratory Results - last 24 hr 08/24/16 08/24/16 08/24/16 Range/Units 00:52 00:52 01:34 WBC 2.2 L (4.5-11.0) K/uL RBC 4.17 (3.30-5.50) M/uL Hgb 12.8 (12.0-15.0) g/dL Hct 37.9 (36.0-48.0) % MCV 91 (80-98) fL MCH 31 (27-31) pg MCHC 34 (32-36) % Plt Count 66 L (150-400) K/uL Add Manual Diff Yes Neutrophils % (Manual) 54 (36-66) % Band Neutrophils % 23 H (5-11) % Lymphocytes % (Manual) 18 L (24-44) % Monocytes % (Manual) 5 (2-6) % Sodium 136 L (140-148) mmol/L Potassium 4.0 (3.6-5.2) mmol/L Chloride 104 (100-108) mmol/L Carbon Dioxide 25 (21-32) mmol/L Anion Gap 11.0 (5.0-14.0) mmol/L BUN 6 L (7-18) mg/dL Creatinine 0.7 (0.6-1.0) mg/dL Est Cr Clr Drug Dosing 80.41 mL/min Estimated GFR (MDRD) > 60 (>60) Glucose 199 H (74-106) mg/dL Lactic Acid 2.2 H (0.4-2.0) mmol/L Calcium 8.0 L (8.5-10.1) mg/dL Troponin I < 0.017 (0.000-0.056) ng/mL 08/24/16 08/24/16 Range/Units 05:05 05:05 WBC 1.9 L (4.5-11.0) K/uL RBC 4.29 (3.30-5.50) M/uL Hgb 12.8 (12.0-15.0) g/dL Hct 38.7 (36.0-48.0) % MCV 90 (80-98) fL MCH 30 (27-31) pg MCHC 33 (32-36) % Plt Count 64 L (150-400) K/uL Add Manual Diff Neutrophils % (Manual) (36-66) % Band Neutrophils % (5-11) % Lymphocytes % (Manual) (24-44) % Monocytes % (Manual) (2-6) % Sodium 138 L (140-148) mmol/L Potassium 3.5 L (3.6-5.2) mmol/L Chloride 106 (100-108) mmol/L Carbon Dioxide 25 (21-32) mmol/L Anion Gap 10.5 (5.0-14.0) mmol/L BUN 8 (7-18) mg/dL Creatinine 0.5 L (0.6-1.0) mg/dL Est Cr Clr Drug Dosing 112.57 mL/min Estimated GFR (MDRD) > 60 (>60) Glucose 78 (74-106) mg/dL Lactic Acid (0.4-2.0) mmol/L Calcium 7.9 L (8.5-10.1) mg/dL Troponin I (0.000-0.056) ng/mL Med Orders - Current: Current Medications Acetaminophen (Tylenol) 650 mg PO Q4H PRN PRN Reason: Pain (Mild 1-3)/fever Last Admin: 08/24/16 06:25 Dose: 650 mg Hydromorphone HCl (Dilaudid) 0.5 mg IVPUSH Q2H PRN PRN Reason: Pain (severe 7-10) Last Admin: 08/24/16 11:27 Dose: 0.5 mg Ceftriaxone Sodium 1 gm/ (Sodium Chloride) 50 mls @ 100 mls/hr IV Q24H [facility] Last Admin: 08/23/16 17:29 Dose: 100 mls/hr Sodium Chloride (Normal Saline) 1,000 mls @ 125 mls/hr IV ASDIRECTED [facility] Last Admin: 08/24/16 07:51 Dose: 125 mls/hr Insulin Aspart (Novolog) 0 unit SUBCUT QIDACANDBED [facility] PRN Reason: Protocol Last Admin: 08/24/16 09:37 Dose: Not Given Insulin Aspart (Novolog) 4 unit SUBCUT TIDMEALS [facility] Last Admin: 08/24/16 07:30 Dose: 4 units Insulin Detemir (Levemir) 30 unit SUBCUT BEDTIME [facility] Last Admin: 08/23/16 21:26 Dose: 30 units Ketorolac Tromethamine (Toradol) 30 mg IVPUSH Q6H PRN PRN Reason: Pain/Fever Stop: 08/28/16 09:42 Last Admin: 08/24/16 00:08 Dose: 30 mg Lorazepam (Ativan) 1 mg IVPUSH Q4H PRN PRN Reason: Anxiety Last Admin: 08/24/16 01:29 Dose: 1 mg Nicotine (Habitrol) 21 mg TRDERM DAILY [facility] Last Admin: 08/24/16 09:29 Dose: 21 mg Ondansetron HCl (Zofran Odt) 4 mg PO Q6H PRN PRN Reason: Nausea able to take PO Ondansetron HCl (Zofran) 4 mg IV Q6H PRN PRN Reason: Nausea/Vomiting Last Admin: 08/24/16 12:01 Dose: 4 mg Oxycodone HCl (Oxycodone) 2.5 - 5 mg PO Q4H PRN PRN Reason: Pain (moderate 4-6) Last Admin: 08/24/16 10:34 Dose: 5 mg Polyethylene Glycol (Miralax) 17 gm PO DAILY PRN PRN Reason: Constipation Senna/Docusate Sodium (Senna Plus) 1 tab PO BID PRN PRN Reason: Constipation Discontinued Medications Acetaminophen (Tylenol Extra Strength) 1,000 mg PO ONETIME ONE Stop: 08/24/16 01:07 Last Admin: 08/24/16 01:29 Dose: 1,000 mg Hydromorphone HCl (Dilaudid) 1 mg IVPUSH ONETIME ONE Stop: 08/22/16 14:46 Last Admin: 08/22/16 15:02 Dose: 1 mg Hydromorphone HCl (Dilaudid) Confirm Administered Dose 1 mg .ROUTE .STK-MED ONE Stop: 08/24/16 00:31 Last Admin: 08/24/16 00:35 Dose: Not Given Lactated Ringer's (Ringers, Lactated) 1,000 mls @ 999 mls/hr IV BOLUS ONE Stop: 08/22/16 15:45 Last Admin: 08/22/16 15:01 Dose: 999 mls/hr Sodium Chloride (Normal Saline) 1,000 mls @ 500 mls/hr IV ASDIRECTED ANIL Stop: 08/22/16 18:31 Last Admin: 08/22/16 16:27 Dose: 500 mls/hr Ceftriaxone Sodium 1 gm/ (Sodium Chloride) 50 mls @ 100 mls/hr IV ONETIME ONE Stop: 08/22/16 17:14 Last Admin: 08/22/16 16:52 Dose: 100 mls/hr Vancomycin HCl 1 gm/ Sodium (Chloride) 250 mls @ 150 mls/hr IV ONETIME ONE Stop: 08/22/16 21:47 Last Admin: 08/22/16 21:34 Dose: 150 mls/hr Insulin Aspart (Novolog) 11 unit SUBCUT ONETIME ONE Stop: 08/23/16 17:30 Last Admin: 08/23/16 17:49 Dose: 11 units Nicotine (Habitrol) 21 mg TRDERM ONETIME ONE Stop: 08/22/16 17:46 Last Admin: 08/22/16 18:02 Dose: 21 mg Ondansetron HCl (Zofran) 4 mg IVPUSH ONETIME ONE Stop: 08/22/16 14:46 Last Admin: 08/22/16 15:06 Dose: 4 mg - Exam Quality Assessment: No: supplemental oxygen General: alert, oriented, cooperative, no acute distress HEENT: Pupils equal Neck: supple Lungs: Normal respiratory effort Cardiovascular: Regular Rate, Regular Rhythm Abdomen: soft, no tenderness, no distension. No: guarding Extremities: no edema, no cyanosis Skin: warm, dry Psy/Mental Status: alert, normal affect - Problem List & Annotations (1) Pyelonephritis SNOMED Code(s): 71081368 Code(s): N12 - TUBULO-INTERSTITIAL NEPHRITIS, NOT SPCF ACUTE OR CHRONIC Status: Acute Current Visit: Yes (2) Diabetes mellitus with hyperglycemia SNOMED Code(s): 62923944, 48194918, 933122381 Code(s): E11.65 - TYPE 2 DIABETES MELLITUS WITH HYPERGLYCEMIA Status: Acute Current Visit: Yes Qualifiers: Diabetes mellitus type: type 1 Qualified Code(s): E10.65 - Type 1 diabetes mellitus with hyperglycemia (3) Tobacco dependence SNOMED Code(s): 83568925 Code(s): F17.200 - NICOTINE DEPENDENCE, UNSPECIFIED, UNCOMPLICATED Status: Chronic Current Visit: Yes - Problem List Review Problem List Initiated/Reviewed/Updated: Yes - My Orders Last 24 Hours: My Active Orders 08/23/16 16:00 cefTRIAXone [Rocephin] 1 gm Sodium Chloride 0.9% [Normal Saline] 50 ml IV Q24H 08/24/16 12:05 Abdomen Pelvis w Cont [CT] Routine 08/24/16 16:30 GLUCOSE POC LAB TO COLLECT [POC] QIDACANDBED 08/24/16 21:00 GLUCOSE POC LAB TO COLLECT [POC] QIDACANDBED 08/25/16 05:00 CBC WITH AUTO DIFF [HEME] Timed COMPREHENSIVE METABOLIC PN,CMP [CHEM] Timed 08/25/16 07:30 GLUCOSE POC LAB TO COLLECT [POC] QIDACANDBED 08/25/16 11:30 GLUCOSE POC LAB TO COLLECT [POC] QIDACANDBED 08/25/16 16:30 GLUCOSE POC LAB TO COLLECT [POC] QIDACANDBED 08/25/16 21:00 GLUCOSE POC LAB TO COLLECT [POC] QIDACANDBED 08/26/16 07:30 GLUCOSE POC LAB TO COLLECT [POC] QIDACANDBED 08/26/16 11:30 GLUCOSE POC LAB TO COLLECT [POC] QIDACANDBED 08/26/16 16:30 GLUCOSE POC LAB TO COLLECT [POC] QIDACANDBED 08/26/16 21:00 GLUCOSE POC LAB TO COLLECT [POC] QIDACANDBED 08/27/16 07:30 GLUCOSE POC LAB TO COLLECT [POC] QIDACANDBED 08/27/16 11:30 GLUCOSE POC LAB TO COLLECT [POC] QIDACANDBED 08/27/16 16:30 GLUCOSE POC LAB TO COLLECT [POC] QIDACANDBED 08/27/16 21:00 GLUCOSE POC LAB TO COLLECT [POC] QIDACANDBED 08/28/16 07:30 GLUCOSE POC LAB TO COLLECT [POC] QIDACANDBED - Plan Plan:: Assessment and plan - Probable acute cholecystitis with possible abscess formation - still spiking fevers, now she is vomiting. Initial concern was for pyelonephritis but this may have been an atypical presentation for gallbladder disease. CT was abnormal and prompted an ultrasound which suggest possible complex pericholecystic fluid which could be an abscess. Surgical services have been consult. -Stop Ceftriaxone, start Pip/Tazo and aztreonam -consult Dr. Israel -Repeat blood cultures with fever this afternoon -IV fluids -Follow-up urine culture -Pain control -Nothing by mouth after midnight for probable cholecystectomy tomorrow Insulin-dependent diabetes mellitus with complication - blood sugars have been under much better control. -Hold long-acting and mealtime insulin tonight with low sugars today and probable surgery tomorrow -Sliding-scale insulin Tobacco dependence - No interest in quitting. She is interested in nicotine patch. Maintenance issues - - DVT prophylaxis - mechanical - GI prophylaxis - not indicated - Nutrition - Nothing by mouth after midnight , Disposition - anticipate discharge to home after the hospital stay Filipe De Paz M.D.
[2016-08-24] MEDS ORDERED: Sodium Chloride 0.9% 10 ML Syringe FLUSH PRN (12:30)
[2016-08-24] MEDS ORDERED: Iopamidol 612 MG/ML 100 ML Bottle IV PRN (12:30)
--- NOTE | 2016-08-24 14:25 | CT ---
Abdomen Pelvis w Cont HISTORY: suspected pyelonephritis, vomiting Axial spiral enhanced CT scan of the abdomen and pelvis was obtained using IV contrast only. Coronal reconstructions were obtained. There are no prior exams for comparison. FINDINGS: There is a minimal amount of pleural fluid on the right. There are mild dependent atelecta sis or edema is noted posteriorly in both lower lobes. Lung bases are otherwise clear. Heart size is normal. No focal parenchymal abnormality seen in the liver or spleen. No definite gallstones are seen. There is pericholecystic fluid. A small amount of ascites is seen in the abdomen and pelvis. No focal abn ormality of the pancreas, adrenal glands, or kidneys can be seen. There is no renal mass or hydronep hrosis. I see no obvious renal or ureteral calculi. Minimal atherosclerotic calcification is noted i n the distal abdominal aorta. No pelvic mass or abnormal fluid collections are seen. Moderate fecal material is seen in the colon. Small bowel loops are nondistended. I see no signs of appendicitis or diverticulitis. Urinary bladd er is unremarkable. True and venous vascular structures appear patent. Portal vein is patent. There is mild periportal edema. Mild stranding is seen in the subcutaneous fat. This could also represent subcutaneous edema. IMPRESSION: 1. Small amount of free fluid in the abdomen and pelvis. This is most prominent adjacent the gallbla dder and in the pelvic cul-de-sac. 2. Mild periportal edema is present. There may be a small amount of subcutaneous edema. I cannot exc lude anasarca. Recommend clinical correlation. 3. Moderate fecal material in the colon. 4. No other acute intra-abdominal or pelvic abnormality is identified. Total DLP 462 mGycm
[2016-08-24] MEDS: Piperacillin/Tazobactam/Dext 3.375 GM in Premix Bag 1 BAG IV SCH ×2 (14:58→22:27)
[2016-08-24] MEDS: Aztreonam/Dextrose-Water 1 GM in Premix Bag 1 BAG IV SCH (17:44)
[2016-08-24] MEDS ORDERED: diphenhydrAMINE 25 MG Cap PO PRN (20:17)
[2016-08-25] MEDS: HYDROmorphone 0.5 MG/0.5 ML Syringe IVPUSH PRN ×3 (00:20→06:52)
[2016-08-25] MEDS: Aztreonam/Dextrose-Water 1 GM in Premix Bag 1 BAG IV SCH ×3 (02:22→17:19)
[2016-08-25] MEDS: Acetaminophen 325 MG Tab PO PRN (03:03)
[2016-08-25] MEDS: Piperacillin/Tazobactam/Dext 3.375 GM in Premix Bag 1 BAG IV SCH ×4 (03:03→21:38)
[2016-08-25] MEDS ORDERED: Bupivacaine 0.5%/EPINEPHrine 1:200,000 50 ML MDV ONE (06:43)
[2016-08-25] MEDS ORDERED: fentaNYL 250 MCG/5 ML SDV ONE ×2 (07:14→10:10)
[2016-08-25] MEDS ORDERED: Succinylcholine/Normal Saline 200 MG/10 ML Syringe ONE (07:15)
[2016-08-25] MEDS ORDERED: Neostigmine Methylsulfate 1 MG/ML 5 ML Syringe ONE (07:15)
[2016-08-25] MEDS ORDERED: Dexamethasone 4 MG/ML SDV ONE (07:15)
[2016-08-25] MEDS ORDERED: Ondansetron 4 MG/2 ML SDV ONE (07:15)
[2016-08-25] MEDS ORDERED: Rocuronium 50 MG/5 ML Vial ONE (07:15)
[2016-08-25] MEDS ORDERED: Propofol 200 MG/20 ML SDV ONE (07:15)
[2016-08-25] MEDS: LORazepam 2 MG/ML MDV IVPUSH PRN ×2 (07:20→20:04)
[2016-08-25] MEDS: Insulin Aspart 100 Units/ML 3 ML Pen SUBCUT SCH ×5 (07:26→21:35)
[2016-08-25] MEDS ORDERED: Naloxone 0.4 MG/ML SDV IVPUSH PRN (07:28)
[2016-08-25] MEDS ORDERED: HYDROmorphone/Normal Saline 15 MG/30 ML PCA IV PRN (07:28)
[2016-08-25] MEDS ORDERED: Naloxone 0.4 MG/ML SDV IV PRN (07:31)
[2016-08-25] MEDS: Sodium Chloride 0.9% 1,000 ML IV SCH ×2 (09:05→16:30)
[2016-08-25] MEDS: Nicotine 21 MG/24 Hr Patch TRDERM SCH (09:08)
--- NOTE | 2016-08-25 09:28 | PCM.SURGPN ---
- General Info Date of Service: 08/25/16 Date of Surgery/Procedure: 08/25/16 (surgery planned for this afternoon) Functional Status: Reports: pain controlled - Review of Systems General: Reports: Fever Pulmonary: Reports: no symptoms Cardiovascular: Reports: No Symptoms Gastrointestinal: Reports: Abdominal pain Genitourinary: Reports: no symptoms Skin: Reports: no symptoms Systems Review Comment:: The patient has a history of breast carcinoma status post mastectomy who was admitted on 08/22/2016 after presenting to the ER complaining of left flank pain described as throbbing pain that radiates to her mid back with associated nausea and vomiting. The patient denies history of kidney stones but does report history of UTIs and pyelonephritis in the past, stating this feels similar. She denies urgency, frequency, shortness of breath or chest pain. She reports subjective fevers and chills at home but did not measure her temperature. The patient ran a fever to 102.5 last night with otherwise normal vital signs. She currently complains of back pain and throbbing pain down bilateral legs. She denies abdominal pain but has tenderness and guarding upon palpation of RUQ. Oral intake was 1080mL. Her WBC count is 1600 and platelets are 51,000. Her liver transaminases are elevated. Blood sugar was 233 this morning. The patient reports prior abdominal surgery with a hysterectomy and appendectomy. - Patient Data Vitals - most recent: Last Vital Signs Temp 35.8 C 08/25/16 09:11 Pulse 74 08/25/16 09:11 Resp 16 08/25/16 09:11 BP 113/61 08/25/16 09:11 Pulse Ox 97 08/25/16 09:11 Weight - most recent: 51.7 kg I&O - last 24 hours: Intake & Output 08/24/16 08/25/16 08/25/16 22:59 06:59 14:59 Intake Total 863 1382 Balance 863 1382 Lab Results last 24 hrs: Laboratory Results - last 24 hr 08/25/16 08/25/16 Range/Units 04:40 04:40 WBC 1.6 L (4.5-11.0) K/uL RBC 4.01 (3.30-5.50) M/uL Hgb 12.2 (12.0-15.0) g/dL Hct 36.2 (36.0-48.0) % MCV 90 (80-98) fL MCH 30 (27-31) pg MCHC 34 (32-36) % Plt Count 51 L (150-400) K/uL Neut % (Auto) 57 (36-66) % Lymph % (Auto) 26 (24-44) % [place] % (Auto) 14 H (2-6) % Eos % (Auto) 0 L (2-4) % Baso % (Auto) 3 H (0-1) % Sodium 134 L (140-148) mmol/L Potassium 3.9 (3.6-5.2) mmol/L Chloride 103 (100-108) mmol/L Carbon Dioxide 24 (21-32) mmol/L Anion Gap 10.9 (5.0-14.0) mmol/L BUN 2 L D (7-18) mg/dL Creatinine 0.7 (0.6-1.0) mg/dL Est Cr Clr Drug Dosing 80.41 mL/min Estimated GFR (MDRD) > 60 (>60) Glucose 233 H (74-106) mg/dL Calcium 7.6 L (8.5-10.1) mg/dL Total Bilirubin 0.9 D (0.2-1.0) mg/dL AST 279 H D (15-37) U/L ALT 272 H (12-78) U/L Alkaline Phosphatase 208 H (46-116) U/L Total Protein 4.7 L (6.4-8.2) g/dL Albumin 1.9 L (3.4-5.0) g/dL Globulin 2.8 (2.3-3.5) g/dL Albumin/Globulin Ratio 0.7 L (1.2-2.2) - Exam General: alert, oriented HEENT: Pupils equal, Pupils reactive, EOMI, Mucous membr. moist/pink Neck: supple Lungs: Clear to auscultation, Normal respiratory effort Cardiovascular: Regular Rate, Regular Rhythm Abdomen: bowel sounds present, soft, guarding, tenderness (RUQ ) Extremities: no edema Skin: warm, dry, intact - Problem List Review Problem List Initiated/Reviewed/Updated: Yes - My Orders Last 24 Hours: Active Orders 24 hr Category Date Time Status Communication Order [RC] STAT Care 08/25/16 07:28 Active Notify Provider Consults [RC] ASDIRECTED Care 08/24/16 17:00 Active Notify Provider [RC] PRN Care 08/25/16 07:28 Active DATABASE MARKETING MANAGER Record [RC] PER UNIT ROUTINE Care 08/25/16 07:28 Active Pulse Oximetry [RC] CONTINUOUS Care 08/25/16 07:28 Active Verify Patient Consent Obtain [RC] ASDIRECTED Care 08/25/16 08:59 Active Consult to Physician [CONS] Routine Cons 08/24/16 16:59 Ordered NPO After Midnight [Nothing per Oral After Midnight Diet 08/24/16 Dinner Active Diet] [DIET] Abdomen Ltd [US] Routine Exams 08/24/16 14:21 Taken CULTURE BLOOD [BC] Urgent Lab 08/24/16 16:10 Received CULTURE BLOOD [BC] Urgent Lab 08/24/16 16:10 Received GLUCOSE POC LAB TO COLLECT [POC] QIDACANDBED Lab 08/25/16 11:30 Ordered GLUCOSE POC LAB TO COLLECT [POC] QIDACANDBED Lab 08/25/16 16:30 Ordered GLUCOSE POC LAB TO COLLECT [POC] QIDACANDBED Lab 08/25/16 21:00 Ordered GLUCOSE POC LAB TO COLLECT [POC] QIDACANDBED Lab 08/26/16 07:30 Ordered GLUCOSE POC LAB TO COLLECT [POC] QIDACANDBED Lab 08/26/16 11:30 Ordered GLUCOSE POC LAB TO COLLECT [POC] QIDACANDBED Lab 08/26/16 16:30 Ordered GLUCOSE POC LAB TO COLLECT [POC] QIDACANDBED Lab 08/26/16 21:00 Ordered GLUCOSE POC LAB TO COLLECT [POC] QIDACANDBED Lab 08/27/16 07:30 Ordered GLUCOSE POC LAB TO COLLECT [POC] QIDACANDBED Lab 08/27/16 11:30 Ordered GLUCOSE POC LAB TO COLLECT [POC] QIDACANDBED Lab 08/27/16 16:30 Ordered GLUCOSE POC LAB TO COLLECT [POC] QIDACANDBED Lab 08/27/16 21:00 Ordered GLUCOSE POC LAB TO COLLECT [POC] QIDACANDBED Lab 08/28/16 07:30 Ordered Aztreonam/Dextrose-Water [Azactam in Dextrose,Iso- Med 08/24/16 18:00 Active Osmotic 1 GM/50 ML] 1 gm Premix Bag 1 bag IV Q8H HYDROmorphone/Normal Saline [Dilaudid DATABASE MARKETING MANAGER 15 MG in NS Med 08/25/16 07:28 Active 30 ML] See Protocol IV ASDIRECTED PRN Naloxone [Narcan] Med 08/25/16 07:31 Active 0.1 mg IV ASDIRECTED PRN Piperacillin/Tazobactam/Dext [Zosyn in Dextrose Iso- Med 08/24/16 16:00 Active Osmotic 3.375 GM] 3.375 gm Premix Bag 1 bag IV Q6H Sodium Chloride 0.9% [Normal Saline] 1,000 ml Med 08/24/16 14:30 Active IV ASDIRECTED diphenhydrAMINE [Benadryl] Med 08/25/16 07:03 Active 25 - 50 mg PO Q4H PRN Blood Culture x2 Reflex Set [OM.PC] Urgent Oth 08/24/16 16:03 Ordered Medication Discontinuation Instructions [OM.PC] Stat Oth 08/25/16 07:28 Ordered - Assessment Assessment (Free Text/Narrative):: 1. Probable acute cholecystitis - Plan Plan (Free Text/Narrative):: 1. Dilaudid DATABASE MARKETING MANAGER 15mg PRN pain 2. Zosyn administrative professional to the OR
[2016-08-25] MEDS ORDERED: Acetaminophen/HYDROcodone 325-5 MG Tab PO PRN (11:41)
[2016-08-25] MEDS ORDERED: Dextrose 5%-Lactated Ringers 1,000 ML IV SCH (11:45)
--- NOTE | 2016-08-25 11:55 | PCM.PN ---
- General Info Date of Service: 08/25/16 Functional Status: Reports: ambulating, urinating - Review of Systems General: Reports: Fever Gastrointestinal: Reports: Abdominal pain Systems Review Comment:: Patient had a fever again overnight. She had a cholecystectomy in pericholecystic abscess drained as well this morning. She reports moderate pain postoperatively. Vitals have been stable. No complaints of cough or shortness of breath. Leg pain feels better. Blood sugars 200 postoperatively. - Patient Data Vitals - most recent: Last Vital Signs Temp 36.1 C 08/25/16 11:38 Pulse 92 08/25/16 11:38 Resp 18 08/25/16 11:38 BP 128/69 08/25/16 11:38 Pulse Ox 92 L 08/25/16 11:38 Weight - most recent: 51.7 kg I&O - last 24 hours: Intake & Output 08/24/16 08/25/16 08/25/16 22:59 06:59 14:59 Intake Total 863 1382 500 Balance 863 1382 500 Lab Results last 24 hrs: Laboratory Results - last 24 hr 08/25/16 08/25/16 Range/Units 04:40 04:40 WBC 1.6 L (4.5-11.0) K/uL RBC 4.01 (3.30-5.50) M/uL Hgb 12.2 (12.0-15.0) g/dL Hct 36.2 (36.0-48.0) % MCV 90 (80-98) fL MCH 30 (27-31) pg MCHC 34 (32-36) % Plt Count 51 L (150-400) K/uL Neut % (Auto) 57 (36-66) % Lymph % (Auto) 26 (24-44) % [place] % (Auto) 14 H (2-6) % Eos % (Auto) 0 L (2-4) % Baso % (Auto) 3 H (0-1) % Sodium 134 L (140-148) mmol/L Potassium 3.9 (3.6-5.2) mmol/L Chloride 103 (100-108) mmol/L Carbon Dioxide 24 (21-32) mmol/L Anion Gap 10.9 (5.0-14.0) mmol/L BUN 2 L D (7-18) mg/dL Creatinine 0.7 (0.6-1.0) mg/dL Est Cr Clr Drug Dosing 80.41 mL/min Estimated GFR (MDRD) > 60 (>60) Glucose 233 H (74-106) mg/dL Calcium 7.6 L (8.5-10.1) mg/dL Total Bilirubin 0.9 D (0.2-1.0) mg/dL AST 279 H D (15-37) U/L ALT 272 H (12-78) U/L Alkaline Phosphatase 208 H (46-116) U/L Total Protein 4.7 L (6.4-8.2) g/dL Albumin 1.9 L (3.4-5.0) g/dL Globulin 2.8 (2.3-3.5) g/dL Albumin/Globulin Ratio 0.7 L (1.2-2.2) Sumeet Results last 24 hrs: Microbiology 08/25/16 11:08 Gram Stain - Final Gallbladder Fluid - Bile Med Orders - Current: Current Medications Acetaminophen (Tylenol) 650 mg PO Q4H PRN PRN Reason: Pain (Mild 1-3)/fever Last Admin: 08/25/16 03:03 Dose: 650 mg Hydrocodone Bitart/Acetaminophen ([place] 325-5 Mg) 1 - 2 tab PO Q4H PRN PRN Reason: PAIN Diphenhydramine HCl (Benadryl) 25 - 50 mg PO Q4H PRN PRN Reason: Itching Hydromorphone HCl (Dilaudid) 0.5 mg IVPUSH Q2H PRN PRN Reason: Pain (severe 7-10) Last Admin: 08/25/16 06:52 Dose: 0.5 mg Hydromorphone HCl (Dilaudid Crime Analyst 15 Mg In Ns 30 Ml) 0 mg IV ASDIRECTED PRN; Protocol PRN Reason: Pain Last Admin: 08/25/16 08:07 Dose: 15 mg Piperacillin/Tazobactam/ (Dextrose 3.375 gm/ Premix) 50 mls @ 100 mls/hr IV Q6H ANIL Last Admin: 08/25/16 09:08 Dose: 100 mls/hr Sodium Chloride (Normal Saline) 1,000 mls @ 75 mls/hr IV ASDIRECTED ANIL Last Admin: 08/25/16 09:05 Dose: 75 mls/hr Aztreonam/Dextrose 1 gm/ (Premix) 50 mls @ 100 mls/hr IV Q8H [facility] Last Admin: 08/25/16 09:07 Dose: 100 mls/hr Insulin Aspart (Novolog) 0 unit SUBCUT QIDACANDBED [facility] PRN Reason: Protocol Last Admin: 08/25/16 07:26 Dose: Not Given Insulin Aspart (Novolog) 4 unit SUBCUT TIDMEALS [facility] Last Admin: 08/24/16 13:16 Dose: Not Given Insulin Detemir (Levemir) 30 unit SUBCUT BEDTIME [facility] Last Admin: 08/23/16 21:26 Dose: 30 units Ketorolac Tromethamine (Toradol) 30 mg IVPUSH Q6H PRN PRN Reason: Pain/Fever Stop: 08/28/16 09:42 Last Admin: 08/24/16 00:08 Dose: 30 mg Lorazepam (Ativan) 1 mg IVPUSH Q4H PRN PRN Reason: Anxiety Last Admin: 08/25/16 07:20 Dose: 1 mg Naloxone HCl (Narcan) 0.1 mg IV ASDIRECTED PRN PRN Reason: decreased respiratory rate Nicotine (Habitrol) 21 mg TRDERM DAILY [facility] Last Admin: 08/25/16 09:08 Dose: 21 mg Ondansetron HCl (Zofran Odt) 4 mg PO Q6H PRN PRN Reason: Nausea able to take PO Ondansetron HCl (Zofran) 4 mg IV Q6H PRN PRN Reason: Nausea/Vomiting Last Admin: 08/24/16 18:24 Dose: 4 mg Oxycodone HCl (Oxycodone) 2.5 - 5 mg PO Q4H PRN PRN Reason: Pain (moderate 4-6) Last Admin: 08/24/16 10:34 Dose: 5 mg Polyethylene Glycol (Miralax) 17 gm PO DAILY PRN PRN Reason: Constipation Senna/Docusate Sodium (Senna Plus) 1 tab PO BID PRN PRN Reason: Constipation Discontinued Medications Acetaminophen (Tylenol Extra Strength) 1,000 mg PO ONETIME ONE Stop: 08/24/16 01:07 Last Admin: 08/24/16 01:29 Dose: 1,000 mg Bupivacaine HCl/Epinephrine Bitart (Marcaine 0.5%/Epinephrine 1:200,000) Confirm Administered Dose 50 ml .ROUTE .STK-MED ONE Stop: 08/25/16 06:44 Dexamethasone (Dexamethasone) Confirm Administered Dose 4 mg .ROUTE .STK-MED ONE Stop: 08/25/16 07:16 Diphenhydramine HCl (Benadryl) 0 mg PO Q4H PRN PRN Reason: Itching Last Admin: 08/24/16 20:25 Dose: 50 mg Fentanyl (Sublimaze) Confirm Administered Dose 250 mcg .ROUTE .STK-MED ONE Stop: 08/25/16 07:15 Fentanyl (Sublimaze) Confirm Administered Dose 250 mcg .ROUTE .STK-MED ONE Stop: 08/25/16 10:11 Glycopyrrolate () Confirm Administered Dose 1 mg .ROUTE .STK-MED ONE Stop: 08/25/16 07:16 Hydromorphone HCl (Dilaudid) 1 mg IVPUSH ONETIME ONE Stop: 08/22/16 14:46 Last Admin: 08/22/16 15:02 Dose: 1 mg Hydromorphone HCl (Dilaudid) Confirm Administered Dose 1 mg .ROUTE .STK-MED ONE Stop: 08/24/16 00:31 Last Admin: 08/24/16 00:35 Dose: Not Given Lactated Ringer's (Ringers, Lactated) 1,000 mls @ 999 mls/hr IV BOLUS ONE Stop: 08/22/16 15:45 Last Admin: 08/22/16 15:01 Dose: 999 mls/hr Sodium Chloride (Normal Saline) 1,000 mls @ 500 mls/hr IV ASDIRECTED [facility] Stop: 08/22/16 18:31 Last Admin: 08/22/16 16:27 Dose: 500 mls/hr Ceftriaxone Sodium 1 gm/ (Sodium Chloride) 50 mls @ 100 mls/hr IV ONETIME ONE Stop: 08/22/16 17:14 Last Admin: 08/22/16 16:52 Dose: 100 mls/hr Ceftriaxone Sodium 1 gm/ (Sodium Chloride) 50 mls @ 100 mls/hr IV Q24H [facility] Last Admin: 08/23/16 17:29 Dose: 100 mls/hr Sodium Chloride (Normal Saline) 1,000 mls @ 125 mls/hr IV ASDIRECTED [facility] Last Admin: 08/24/16 07:51 Dose: 125 mls/hr Vancomycin HCl 1 gm/ Sodium (Chloride) 250 mls @ 150 mls/hr IV ONETIME ONE Stop: 08/22/16 21:47 Last Admin: 08/22/16 21:34 Dose: 150 mls/hr Sodium Chloride (Normal Saline) 70 mls @ 3 mls/sec IV ONETIME ONE Stop: 08/24/16 12:31 Last Admin: 08/24/16 12:45 Dose: 3 mls/sec Dextrose/Lactated Ringer's (Dextrose 5%-Lactated Ringers) 1,000 mls @ 100 mls/ hr IV ASDIRECTED ANIL Insulin Aspart (Novolog) 11 unit SUBCUT ONETIME ONE Stop: 08/23/16 17:30 Last Admin: 08/23/16 17:49 Dose: 11 units Iopamidol (Isovue-300 (61%)) 76 ml IV . DIRECTED PRN PRN Reason: RADIOLOGY EXAM Stop: 08/24/16 12:31 Last Admin: 08/24/16 12:45 Dose: 100 ml Neostigmine Methylsulfate (Neostigmine) Confirm Administered Dose 5 mg .ROUTE .STK-MED ONE Stop: 08/25/16 07:16 Nicotine (Habitrol) 21 mg TRDERM ONETIME ONE Stop: 08/22/16 17:46 Last Admin: 08/22/16 18:02 Dose: 21 mg Ondansetron HCl (Zofran) 4 mg IVPUSH ONETIME ONE Stop: 08/22/16 14:46 Last Admin: 08/22/16 15:06 Dose: 4 mg Ondansetron HCl (Zofran) Confirm Administered Dose 4 mg .ROUTE .STK-MED ONE Stop: 08/25/16 07:16 Propofol (Diprivan 20 Ml) Confirm Administered Dose 200 mg .ROUTE .STK-MED ONE Stop: 08/25/16 07:16 Rocuronium Wheeler (Zemuron) Confirm Administered Dose 50 mg .ROUTE .STK-MED ONE Stop: 08/25/16 07:16 Sodium Chloride (Saline Flush) 10 ml FLUSH ONETIME PRN PRN Reason: PER RADIOLOGY PROTOCOL Stop: 08/24/16 12:45 Last Admin: 08/24/16 12:45 Dose: 10 ml Succinylcholine Chloride (Succinylcholine In Ns Pf) Confirm Administered Dose 200 mg .ROUTE .STK-MED ONE Stop: 08/25/16 07:16 - Exam Quality Assessment: No: supplemental oxygen General: alert, oriented, cooperative, mild distress Neck: supple Lungs: Normal respiratory effort Cardiovascular: Regular Rate, Regular Rhythm Abdomen: no distension Extremities: no edema, no cyanosis Skin: warm, dry Psy/Mental Status: alert, normal affect - Problem List & Annotations (1) Pyelonephritis SNOMED Code(s): 34514539 Code(s): N12 - TUBULO-INTERSTITIAL NEPHRITIS, NOT SPCF ACUTE OR CHRONIC Status: Acute Current Visit: Yes (2) Diabetes mellitus with hyperglycemia SNOMED Code(s): 01730956, 94819312, 917456768 Code(s): E11.65 - TYPE 2 DIABETES MELLITUS WITH HYPERGLYCEMIA Status: Acute Current Visit: Yes Qualifiers: Diabetes mellitus type: type 1 Qualified Code(s): E10.65 - Type 1 diabetes mellitus with hyperglycemia (3) Tobacco dependence SNOMED Code(s): 07013542 Code(s): F17.200 - NICOTINE DEPENDENCE, UNSPECIFIED, UNCOMPLICATED Status: Chronic Current Visit: Yes - Problem List Review Problem List Initiated/Reviewed/Updated: Yes - My Orders Last 24 Hours: My Active Orders 08/24/16 14:21 Abdomen Ltd [US] Routine 08/24/16 14:30 Sodium Chloride 0.9% [Normal Saline] 1,000 ml IV ASDIRECTED 08/24/16 16:00 Piperacillin/Tazobactam/Dext [Zosyn in Dextrose Iso-Osmotic 3.375 GM] 3.375 gm Premix Bag 1 bag IV Q6H 08/24/16 16:03 Blood Culture x2 Reflex Set [OM.PC] Urgent 08/24/16 16:10 CULTURE BLOOD [BC] Urgent CULTURE BLOOD [BC] Urgent 08/24/16 16:59 Consult to Physician [CONS] Routine 08/24/16 17:00 Notify Provider Consults [RC] ASDIRECTED 08/24/16 18:00 Aztreonam/Dextrose-Water [Azactam in Dextrose,Iso-Osmotic 1 GM/50 ML] 1 gm Premix Bag 1 bag IV Q8H 08/24/16 Dinner NPO After Midnight [Nothing per Oral After Midnight Diet] [DIET] 08/25/16 07:03 diphenhydrAMINE [Benadryl] 25 - 50 mg PO Q4H PRN 08/25/16 07:28 Communication Order [RC] STAT Notify Provider [RC] PRN SERVOMECHANISM DESIGNER Record [RC] PER UNIT ROUTINE Pulse Oximetry [RC] CONTINUOUS HYDROmorphone/Normal Saline [Dilaudid SERVOMECHANISM DESIGNER 15 MG in NS 30 ML] See Protocol IV ASDIRECTED PRN Medication Discontinuation Instructions [OM.PC] Stat 08/25/16 16:30 GLUCOSE POC LAB TO COLLECT [POC] QIDACANDBED 08/25/16 21:00 GLUCOSE POC LAB TO COLLECT [POC] QIDACANDBED 08/26/16 07:30 GLUCOSE POC LAB TO COLLECT [POC] QIDACANDBED 08/26/16 11:30 GLUCOSE POC LAB TO COLLECT [POC] QIDACANDBED 08/26/16 16:30 GLUCOSE POC LAB TO COLLECT [POC] QIDACANDBED 08/26/16 21:00 GLUCOSE POC LAB TO COLLECT [POC] QIDACANDBED 08/27/16 07:30 GLUCOSE POC LAB TO COLLECT [POC] QIDACANDBED 08/27/16 11:30 GLUCOSE POC LAB TO COLLECT [POC] QIDACANDBED 08/27/16 16:30 GLUCOSE POC LAB TO COLLECT [POC] QIDACANDBED 08/27/16 21:00 GLUCOSE POC LAB TO COLLECT [POC] QIDACANDBED 08/28/16 07:30 GLUCOSE POC LAB TO COLLECT [POC] QIDACANDBED - Plan Plan:: Assessment and plan - Probable acute cholecystitis with abscess formation - status post cholecystectomy and abscess drainage this morning. Stable postoperatively. Blood cultures negative so far. Culture from pericholecystic abscess is pending. -Continue Pip/Tazo and aztreonam -IV fluids -Pain control -Advance diet as tolerated Insulin-dependent diabetes mellitus with complication - blood sugars stable postoperatively. -Hold sliding scale insulin immediately postop -Restart mealtime insulin sliding scale insulin when she starts to eat later in the afternoon -Restart long-acting insulin this evening -Sliding-scale insulin Tobacco dependence - No interest in quitting. She is interested in nicotine patch. Maintenance issues - - DVT prophylaxis - mechanical - GI prophylaxis - not indicated - Nutrition - advance diet as tolerated Disposition - anticipate discharge to home after the hospital stay Filipe De Paz M.D.
[2016-08-25] MEDS: oxyCODONE 5 MG Tab PO PRN ×2 (17:13→22:45)
[2016-08-25] MEDS: Insulin Detemir 100 Units/ML 3 ML Pen SUBCUT SCH (21:18)
[2016-08-26] MEDS: Aztreonam/Dextrose-Water 1 GM in Premix Bag 1 BAG IV SCH ×2 (02:23→09:38)
[2016-08-26] MEDS: Piperacillin/Tazobactam/Dext 3.375 GM in Premix Bag 1 BAG IV SCH ×2 (03:20→09:38)
[2016-08-26] MEDS: oxyCODONE 5 MG Tab PO PRN (03:21)
[2016-08-26] MEDS: HYDROmorphone 0.5 MG/0.5 ML Syringe IVPUSH PRN (04:52)
[2016-08-26] MEDS: Sodium Chloride 0.9% 1,000 ML IV SCH (07:11)
[2016-08-26] MEDS ORDERED: HYDROmorphone 2 MG Tab PO PRN (07:17)
[2016-08-26] MEDS: Ketorolac 30 MG/ML SDV IVPUSH PRN (07:42)
[2016-08-26] MEDS: Insulin Aspart 100 Units/ML 3 ML Pen SUBCUT SCH ×4 (07:44→12:07)
--- NOTE | 2016-08-26 08:46 | PN ---
DATE OF SERVICE: 08/26/2016 SUBJECTIVE: Laura is postop day #1. She is reporting that her pain is not controlled and the oxycodone is giving her quite a bit in the way of nausea. This morning, her magnesium was 1.6, white count 3, hemoglobin was 13.4, total bilirubin 0.7, AST is down from 279 to 182, ALT is down from 272 to 255, and alkaline phosphatase is up from 208 to 217. She has been up ambulating, did have a bowel movement. MICKY drain has put out 220 mL of a light pink serous sanguinous drainage. REVIEW OF SYSTEMS: Remainder of review of systems negative for any pertinent positives and negatives. OBJECTIVE: GENERAL: Laura is a 45-year-old female. She is alert and orientated. Color pale. VITAL SIGNS: TPR is 96.8, 86, 16, blood pressure 137/79. HEENT: Negative. NECK: Supple. HEART: Regular rate and rhythm. LUNGS: Clear. ABDOMEN: Dressings dry and intact. MICKY drain as above. Abdominal binder has been on. EXTREMITIES: Without peripheral edema. ASSESSMENT: Diagnostic laparoscopy with cholecystectomy and drainage of pericholecystic abscess for acute cholecystitis and pericholecystic abscess, date of surgery 08/25/2016. PLAN: 1. Magnesium oxide 400 mg p.o. daily. 2. Dressing off. 3. May shower. 4. Discontinue MICKY drain. 5. Discontinue OxyContin. 6. Dilaudid 2 mg, 1 to 2 q.4 hours p.r.n. pain. 7. Continue Zofran as needed for nausea. 8. Diet will be progressed according to how she tolerates her diet. 9. Discharge: She may be discharged from the surgical standpoint of view. Admission per Dr. Filipe De Paz. When she is discharged, she is to follow up in Surgery Department with Aylin García PA-C, on 09/06/2016 at 11:00 a.m. Aylin García PA-C /[id number]
[2016-08-26] MEDS: Nicotine 21 MG/24 Hr Patch TRDERM SCH (08:51)
[2016-08-26] MEDS ORDERED: Magnesium Oxide 400 MG Tab PO SCH (09:00)
[2016-08-26] MEDS: diphenhydrAMINE 25 MG Cap PO PRN ×2 (09:41→10:46)
[2016-08-26 11:12] VITALS: BP 135/87
--- NOTE | 2016-08-26 11:55 | PCM.DCSUM1 ---
Discharge Summary - Hospital Course Brief History: 45-year-old female with history of type 1 diabetes mellitus and tobacco dependence who presented with a left mid back pain and was admitted for management of presumed pyelonephritis and sepsis. - Discharge Data Discharge Date: 08/26/16 Discharge Disposition: Home, Self-Care 01 Condition: Good - Discharge Diagnosis/Problem(s) (1) Acute acalculous cholecystitis SNOMED Code(s): 96630171 ICD Code: K81.0 - ACUTE CHOLECYSTITIS Status: Acute (2) Pericholecystic abscess SNOMED Code(s): 20223617 ICD Code: K81.0 - ACUTE CHOLECYSTITIS Status: Acute (3) Diabetes mellitus with hyperglycemia SNOMED Code(s): 76169482, 06970849, 240919320 ICD Code: E11.65 - TYPE 2 DIABETES MELLITUS WITH HYPERGLYCEMIA Status: Acute Qualifiers: Diabetes mellitus type: type 1 Qualified Code(s): E10.65 - Type 1 diabetes mellitus with hyperglycemia (4) Tobacco dependence SNOMED Code(s): 20380731 ICD Code: F17.200 - NICOTINE DEPENDENCE, UNSPECIFIED, UNCOMPLICATED Status : Chronic (5) Pyelonephritis SNOMED Code(s): 75614439 ICD Code: N12 - TUBULO-INTERSTITIAL NEPHRITIS, NOT SPCF ACUTE OR CHRONIC Status: Ruled-out - Patient Summary/Data Consults: Consultations 08/24/16 16:59 Consult to Physician [CONS] Routine Consulting Provider: Vladimir Israel Courtesy Call Completed to Consulting Physician: Yes Reason for Consult: ?acute cholecystitis? Person Notified: BEASLEY Date Notified: 08/24/16 Special Instructions: planning cholecystectomy in the morning Labs Pending at D/C: Final results of cultures which have no growth to date Hospital Course: Laura presented to the emergency room with left flank pain, fever and was admitted for management of presumed left-sided pyelonephritis and sepsis. Urine sample was suggestive of infection and urine culture was sent to the lab. She was empirically started on ceftriaxone and provided pain control. She also had a fair amount of hyperglycemia at the time of presentation and additional insulin was supplemented. Over the course of the next couple of days she had intermittent fever spikes though in general she felt a little bit better. Her pain persisted but didn't improve slightly with pain control. After her second large fever despite the ceftriaxone and persistent back pain I elected to perform a CT of the abdomen and pelvis. This did not show evidence for pyelonephritis but rather showed a cholecystitis with probable pericholecystic abscess. At this point her antibiotics were adjusted to Pip/Tazo and aztreonam. A second round of blood cultures were obtained and Dr. Israel was consulted for possible surgical intervention. The morning after the CT scan she had a cholecystectomy. A pericholecystic abscess was drained at this time as well. No organisms were seen on the Gram stain. Postoperatively she had some difficulty with pain but otherwise she has done fairly well. On the morning of discharge she looks well and has not had any fevers. She is tolerated her diet has been up and walking around. Pain is controlled using only oral medications at this time. On the day that the gallbladder pathology was identified we did note an increase in her ALTs and AST and these have persisted to the day of discharge. We did discuss the possibility of staying for one more set of enzymes but patient is feeling well and would like to go home at this time. I do believe she is safe for outpatient management and she may benefit from repeat CBC and CMP at her follow-up appointment to make sure that her levels are trending in the right direction. She did have both a low white blood cell count and low platelet level but I suspect these were related to her sepsis related to the infection. Blood sugars have been fairly well controlled with the exception of the night of admission of the night before discharge. She will maintain her usual insulin regimen. She'll be following up with surgical clinic in 10 days. She can follow-up in between if symptoms worsen or do not continue to get better. I did provide a prescription for Augmentin for 5 additional days as well as some ondansetron and some pain medication. - Patient Instructions Diet: Drink 8-10+ Glasses/Day, Diabetic Diet Diet, Other: soft and bland foods for the next 2 weeks Activity: As Tolerated, No Lifting Over 10 Pounds (for two weeks) Driving: Do Not Drive (if taking pain pills) Showering/Bathing: May Shower Notify Provider of: Fever, Increased Pain, Nausea and/or Vomiting Other/Special Instructions: 1. You were the hospital for management of abdominal pain initially thought to be caused by a kidney infection but later to be discovered by acute cholecystitis with an abscess near the gallbladder. The gallbladder was surgically removed by Dr. Israel and the abscess was drained. I do recommend 5 additional days of antibiotic therapy with Augmentin. You should take this twice daily with food to avoid nausea which is the most common side effect. You may use ibuprofen and/or acetaminophen for mild pain and I have provided a prescription for Dilaudid to use for severe pain. I have also provided a prescription for ondansetron to use as needed for nausea. 2. Continue your insulin as per your home dosing. 3. Please seek medical attention if you develop fever greater than 101, have return of severe abdominal pain or persistent vomiting or diarrhea. - Discharge Plan Prescriptions/Med Rec: Amoxicillin/Clavulanate K [Augmentin 875 MG] 1 tab PO BID #10 tablet HYDROmorphone [Dilaudid] 2 - 4 mg PO Q4H PRN #25 tablet PRN Reason: Pain Ondansetron [Zofran ODT] 4 mg PO Q6H PRN #15 tab.dis PRN Reason: Nausea Home Medications: Home Meds Insulin Aspart [NovoLOG] 4 - 10 units SQ QID 08/22/16 [History] Insulin Glarg,Human.Rec.Analog [Lantus Solostar] 30 unit SUBCUT BEDTIME [History] Amoxicillin/Clavulanate K [Augmentin 875 MG] 1 tab PO BID #10 tablet 08/26/16 [ Rx] HYDROmorphone [Dilaudid] 2 - 4 mg PO Q4H PRN #25 tablet 08/26/16 [Rx] Ondansetron [Zofran ODT] 4 mg PO Q6H PRN #15 tab.dis 08/26/16 [Rx] Patient Handouts: Amoxicillin; Clavulanic Acid tablets, Cholecystitis Referrals: Aylin García PA-C [Physician Pound Keeper] - 09/06/16 11:00 am PCP,None [Primary Care Provider] - (follow up with your primary care as needed if your symptoms get worse or do not continue to get better) - Discharge Summary/Plan Comment DC Time >30 min.: No (25) - Patient Data Vitals - Most Recent: Last Vital Signs Temp 35.8 C 08/26/16 11:10 Pulse 84 08/26/16 11:10 Resp 16 08/26/16 11:10 BP 135/87 08/26/16 11:10 Pulse Ox 97 08/26/16 11:10 Weight - Most Recent: 51.7 kg I&O - Last 24 hours: Intake & Output 08/25/16 08/26/16 08/26/16 22:59 06:59 14:59 Intake Total 862 1400 700 Output Total 2370 890 1425 Balance -1508 510 -725 Lab Results - Last 24 hrs: Laboratory Results - last 24 hr 08/26/16 08/26/16 Range/Units 05:00 05:00 WBC 3.0 L (4.5-11.0) K/uL RBC 4.44 (3.30-5.50) M/uL Hgb 13.4 (12.0-15.0) g/dL Hct 39.7 (36.0-48.0) % MCV 89 (80-98) fL MCH 30 (27-31) pg MCHC 34 (32-36) % Plt Count 68 L (150-400) K/uL Add Manual Diff Yes Neutrophils % (Manual) 36 (36-66) % Band Neutrophils % 11 (5-11) % Lymphocytes % (Manual) 33 (24-44) % Monocytes % (Manual) 17 H (2-6) % Blast Cells % 3 % Sodium 133 L (140-148) mmol/L Potassium 4.4 (3.6-5.2) mmol/L Chloride 97 L (100-108) mmol/L Carbon Dioxide 25 (21-32) mmol/L Anion Gap 15.4 H (5.0-14.0) mmol/L BUN 9 D (7-18) mg/dL Creatinine 0.7 (0.6-1.0) mg/dL Est Cr Clr Drug Dosing 80.41 mL/min Estimated GFR (MDRD) > 60 (>60) Glucose 326 H (74-106) mg/dL Calcium 8.2 L (8.5-10.1) mg/dL Phosphorus 3.2 (2.5-4.9) mg/dL Magnesium 1.6 L (1.8-2.4) mg/dL Total Bilirubin 0.7 (0.2-1.0) mg/dL AST 182 H (15-37) U/L ALT 255 H (12-78) U/L Alkaline Phosphatase 217 H (46-116) U/L Total Protein 5.1 L (6.4-8.2) g/dL Albumin 2.1 L (3.4-5.0) g/dL Globulin 3.0 (2.3-3.5) g/dL Albumin/Globulin Ratio 0.7 L (1.2-2.2) COTY Results - Last 24 hrs: Microbiology 08/25/16 11:08 Anaerobic Culture - Preliminary Gallbladder Fluid - Bile NO GROWTH AFTER 1 DAY 08/25/16 11:08 Gram Stain - Final Gallbladder Fluid - Bile Wound Culture - Preliminary NO GROWTH AFTER 1 DAY 08/24/16 16:10 Aerobic Blood Culture - Preliminary Blood - Arm, Right NO GROWTH AFTER 1 DAY Anaerobic Blood Culture - Preliminary NO GROWTH AFTER 1 DAY 08/24/16 16:10 Aerobic Blood Culture - Preliminary Blood - Arm, Right NO GROWTH AFTER 1 DAY Anaerobic Blood Culture - Preliminary NO GROWTH AFTER 1 DAY Med Orders - Current: Current Medications Acetaminophen (Tylenol) 650 mg PO Q4H PRN PRN Reason: Pain (Mild 1-3)/fever Last Admin: 08/25/16 03:03 Dose: 650 mg Diphenhydramine HCl (Benadryl) 25 - 50 mg PO Q4H PRN PRN Reason: Itching Last Admin: 08/26/16 10:46 Dose: 25 mg Hydromorphone HCl (Dilaudid) 2 - 4 mg PO Q4H PRN PRN Reason: Pain Last Admin: 08/26/16 07:43 Dose: 4 mg Piperacillin/Tazobactam/ (Dextrose 3.375 gm/ Premix) 50 mls @ 100 mls/hr IV Q6H [facility] Last Admin: 08/26/16 09:38 Dose: 100 mls/hr Sodium Chloride (Normal Saline) 1,000 mls @ 75 mls/hr IV ASDIRECTED [facility] Last Admin: 08/26/16 07:11 Dose: 75 mls/hr Aztreonam/Dextrose 1 gm/ (Premix) 50 mls @ 100 mls/hr IV Q8H [facility] Last Admin: 08/26/16 09:38 Dose: 100 mls/hr Insulin Aspart (Novolog) 0 unit SUBCUT QIDACANDBED [facility] PRN Reason: Protocol Last Admin: 08/26/16 07:44 Dose: 10 units Insulin Aspart (Novolog) 4 unit SUBCUT TIDMEALS [facility] Last Admin: 08/26/16 07:45 Dose: 4 units Insulin Detemir (Levemir) 30 unit SUBCUT BEDTIME [facility] Last Admin: 08/25/16 21:18 Dose: Not Given Ketorolac Tromethamine (Toradol) 30 mg IVPUSH Q6H PRN PRN Reason: Pain/Fever Stop: 08/28/16 09:42 Last Admin: 08/26/16 07:42 Dose: 30 mg Lorazepam (Ativan) 1 mg IVPUSH Q4H PRN PRN Reason: Anxiety Last Admin: 08/25/16 20:04 Dose: 1 mg Magnesium Oxide (Magnesium Oxide) 400 mg PO DAILY [facility] Last Admin: 08/26/16 08:52 Dose: 400 mg Naloxone HCl (Narcan) 0.1 mg IV ASDIRECTED PRN PRN Reason: decreased respiratory rate Nicotine (Habitrol) 21 mg TRDERM DAILY [facility] Last Admin: 08/26/16 08:51 Dose: 21 mg Ondansetron HCl (Zofran Odt) 4 mg PO Q6H PRN PRN Reason: Nausea able to take PO Last Admin: 08/25/16 17:16 Dose: 4 mg Ondansetron HCl (Zofran) 4 mg IV Q6H PRN PRN Reason: Nausea/Vomiting Last Admin: 08/24/16 18:24 Dose: 4 mg Polyethylene Glycol (Miralax) 17 gm PO DAILY PRN PRN Reason: Constipation Senna/Docusate Sodium (Senna Plus) 1 tab PO BID PRN PRN Reason: Constipation Discontinued Medications Acetaminophen (Tylenol Extra Strength) 1,000 mg PO ONETIME ONE Stop: 08/24/16 01:07 Last Admin: 08/24/16 01:29 Dose: 1,000 mg Hydrocodone Bitart/Acetaminophen (Como 325-5 Mg) 1 - 2 tab PO Q4H PRN PRN Reason: PAIN Bupivacaine HCl/Epinephrine Bitart (Marcaine 0.5%/Epinephrine 1:200,000) Confirm Administered Dose 50 ml .ROUTE .STK-MED ONE Stop: 08/25/16 06:44 Last Admin: 08/25/16 10:32 Dose: 12 ml Dexamethasone (Dexamethasone) Confirm Administered Dose 4 mg .ROUTE .STK-MED ONE Stop: 08/25/16 07:16 Diphenhydramine HCl (Benadryl) 0 mg PO Q4H PRN PRN Reason: Itching Last Admin: 08/24/16 20:25 Dose: 50 mg Fentanyl (Sublimaze) Confirm Administered Dose 250 mcg .ROUTE .STK-MED ONE Stop: 08/25/16 07:15 Fentanyl (Sublimaze) Confirm Administered Dose 250 mcg .ROUTE .STK-MED ONE Stop: 08/25/16 10:11 Glycopyrrolate () Confirm Administered Dose 1 mg .ROUTE .STK-MED ONE Stop: 08/25/16 07:16 Hydromorphone HCl (Dilaudid) 1 mg IVPUSH ONETIME ONE Stop: 08/22/16 14:46 Last Admin: 08/22/16 15:02 Dose: 1 mg Hydromorphone HCl (Dilaudid) 0.5 mg IVPUSH Q2H PRN PRN Reason: Pain (severe 7-10) Last Admin: 08/26/16 04:52 Dose: 0.5 mg Hydromorphone HCl (Dilaudid) Confirm Administered Dose 1 mg .ROUTE .STK-MED ONE Stop: 08/24/16 00:31 Last Admin: 08/24/16 00:35 Dose: Not Given Hydromorphone HCl (Dilaudid Medical Office Scheduler 15 Mg In Ns 30 Ml) 0 mg IV ASDIRECTED PRN; Protocol PRN Reason: Pain Last Admin: 08/25/16 08:07 Dose: 15 mg Lactated Ringer's (Ringers, Lactated) 1,000 mls @ 999 mls/hr IV BOLUS ONE Stop: 08/22/16 15:45 Last Admin: 08/22/16 15:01 Dose: 999 mls/hr Sodium Chloride (Normal Saline) 1,000 mls @ 500 mls/hr IV ASDIRECTED [facility] Stop: 08/22/16 18:31 Last Admin: 08/22/16 16:27 Dose: 500 mls/hr Ceftriaxone Sodium 1 gm/ (Sodium Chloride) 50 mls @ 100 mls/hr IV ONETIME ONE Stop: 08/22/16 17:14 Last Admin: 08/22/16 16:52 Dose: 100 mls/hr Ceftriaxone Sodium 1 gm/ (Sodium Chloride) 50 mls @ 100 mls/hr IV Q24H [facility] Last Admin: 08/23/16 17:29 Dose: 100 mls/hr Sodium Chloride (Normal Saline) 1,000 mls @ 125 mls/hr IV ASDIRECTED [facility] Last Admin: 08/24/16 07:51 Dose: 125 mls/hr Vancomycin HCl 1 gm/ Sodium (Chloride) 250 mls @ 150 mls/hr IV ONETIME ONE Stop: 08/22/16 21:47 Last Admin: 08/22/16 21:34 Dose: 150 mls/hr Sodium Chloride (Normal Saline) 70 mls @ 3 mls/sec IV ONETIME ONE Stop: 08/24/16 12:31 Last Admin: 08/24/16 12:45 Dose: 3 mls/sec Dextrose/Lactated Ringer's (Dextrose 5%-Lactated Ringers) 1,000 mls @ 100 mls/ hr IV ASDIRECTED [facility] Insulin Aspart (Novolog) 11 unit SUBCUT ONETIME ONE Stop: 08/23/16 17:30 Last Admin: 08/23/16 17:49 Dose: 11 units Iopamidol (Isovue-300 (61%)) 76 ml IV . DIRECTED PRN PRN Reason: RADIOLOGY EXAM Stop: 08/24/16 12:31 Last Admin: 08/24/16 12:45 Dose: 100 ml Neostigmine Methylsulfate (Neostigmine) Confirm Administered Dose 5 mg .ROUTE .STK-MED ONE Stop: 08/25/16 07:16 Nicotine (Habitrol) 21 mg TRDERM ONETIME ONE Stop: 08/22/16 17:46 Last Admin: 08/22/16 18:02 Dose: 21 mg Ondansetron HCl (Zofran) 4 mg IVPUSH ONETIME ONE Stop: 08/22/16 14:46 Last Admin: 08/22/16 15:06 Dose: 4 mg Ondansetron HCl (Zofran) Confirm Administered Dose 4 mg .ROUTE .STK-MED ONE Stop: 08/25/16 07:16 Oxycodone HCl (Oxycodone) 2.5 - 5 mg PO Q4H PRN PRN Reason: Pain (moderate 4-6) Last Admin: 08/26/16 03:21 Dose: 5 mg Propofol (Diprivan 20 Ml) Confirm Administered Dose 200 mg .ROUTE .STK-MED ONE Stop: 08/25/16 07:16 Rocuronium [place] (Zemuron) Confirm Administered Dose 50 mg .ROUTE .STK-MED ONE Stop: 08/25/16 07:16 Sodium Chloride (Saline Flush) 10 ml FLUSH ONETIME PRN PRN Reason: PER RADIOLOGY PROTOCOL Stop: 08/24/16 12:45 Last Admin: 08/24/16 12:45 Dose: 10 ml Succinylcholine Chloride (Succinylcholine In Ns Pf) Confirm Administered Dose 200 mg .ROUTE .STK-MED ONE Stop: 08/25/16 07:16 *Q Meaningful Use (DIS) - VTE *Q VTE Criteria *Q: - Stroke *Q Stroke Criteria *Q: - AMI *Q AMI Criteria *Q:
--- NOTE | 2016-08-28 11:59 | OR ---
DATE OF PROCEDURE: 08/25/2016 PREOPERATIVE DIAGNOSIS: Acute cholecystitis. POSTOPERATIVE DIAGNOSES: 1. Acute acalculous cholecystitis. 2. Pericholecystic abscess. OPERATIVE PROCEDURE: 1. Diagnostic laparoscopy with: a. Cholecystectomy (98926). b. Drainage pericholecystic abscess ([id number]). ANESTHESIA: General. FRONT DESK PERSON: Aylin García PA-C and SCOTT Magallanes student. INDICATION FOR PROCEDURE: A 45-year-old presenting with a complex presentation amongst the findings are that of upper abdominal pain along with marked edema and pericholecystic fluid collection involving the gallbladder. It is notable that she has quite a bit in the way of complaints including a leg pain and white count has gotten down to 1.2 and platelets this morning were 51,000. These have all been steadily declining. Temperature this morning was 102. The plan is to proceed with the laparoscopic, or if necessary open cholecystectomy with drainage of any inflammatory fluid collections that might be present around the gallbladder. The potential risks of the procedure including bleeding, infection, and injury to underlying viscera such as common bile duct were all reviewed, and the patient wishes to proceed. She is aware that she has somewhat increased risk for both infectious complications as well as the bleeding due to the low white count and platelet count. DESCRIPTION OF PROCEDURE: The patient was taken to the operating room and placed in a supine position. After general endotracheal anesthesia was induced, the abdomen was prepped and draped. the area just to the right of the umbilicus, a transverse incision was made and peritoneal cavity entered under direct visualization with Optiview trocar inflated to 15 mmHg pressure CO2. Laparoscope was then reinserted. No underlying trocar insertion site injuries were seen. Following this, a 12 mm epigastric trocar, a single 5 mm right abdominal trocar were placed and the abdomen was examined. General examination of the abdomen was then undertaken. Apart from the fluid collection around the gallbladder which had a slightly greenish hue to it, and associated with marked inflammation of the area around the gallbladder, i.e., a focal peritonitis, the gallbladder was strikingly edematous and essentially white in color. Beyond that, however, there was no evidence of any recurrent tumor in the abdomen on general exploration. At this point, the fluid around the gallbladder was aspirated and sent for culture. The gallbladder was then retracted anteriorly and laterally. Some adhesions were present on the gallbladder, which were taken down with Harmonic Scalpel and then dissection continued around the gallbladder neck and cystic duct junction, along with the cystic artery. Once those areas were both clearly identified, both clipped 3 times proximally and once distally and divided. The gallbladder was then dissected off the gallbladder bed using the Harmonic scalpel and delivered through the upper midline port. Off the field, the gallbladder was examined and was noted to have a largely acute inflammation but without any stones, i.e., this was an acalculus cholecystitis. The area of dissection was inspected. No bleeding or other problems were noted. Throughout the course of the procedure the patient did not demonstrate any abnormal bleeding per se. A Edwardo-Benitez drain was then taken through the right lateral trocar site and placed into the gallbladder bed and at that point the trocars were removed. The fascia at the 12 mm sites were closed with 0 Vicryl stitch and the skin with a 4-0 Vicryl skin stitch. Dressing was applied. The patient was taken to the recovery room in satisfactory condition. Physician floral assistant, Aylin García, played an essential role in assisting in this case, helping to position the patient, retract structures as needed, as well as suturing and cutting sutures as indicated. Her presence improved patient's safety and decreased operative time. Vladimir Israel MD /[id number]
== END 2016-08-26 12:15 | disposition home or self-care (01) | DRG 854 ==
LOC: JP.ED 13:38 → JP.MS 16:20
PROVIDERS: ADMIT Internal Medicine; ATTEND Internal Medicine
PROC: 0FT44ZZ Resection of Gallbladder, Percutaneous Endoscopic Approach (ICD-10-PCS; principal; 2016-08-25)
PROC: 0W9G4ZX Drainage of Peritoneal Cavity, Percutaneous Endoscopic Approach, Diagnostic (ICD-10-PCS; principal; 2016-08-25)
DX: A41.9 Sepsis, unspecified organism (principal); N12 Tubulo-interstitial nephritis, not specified as acute or chronic; K81.0 Acute cholecystitis; F17.210 Nicotine dependence, cigarettes, uncomplicated; E11.65 Type 2 diabetes mellitus with hyperglycemia; Z79.4 Long term (current) use of insulin; Z87.440 Personal history of urinary (tract) infections; Z85.3 Personal history of malignant neoplasm of breast; Z85.42 Personal history of malignant neoplasm of other parts of uterus; Z92.3 Personal history of irradiation; Z88.5 Allergy status to narcotic agent; Z90.10 Acquired absence of unspecified breast and nipple
CPT/HCPCS: 36415; 36600; 74177; 74177-26; 76705; 80048; 80053; 81001; 82009; 82803; 82962; 83605; 83735; 84100; 84484; 85025; 85027; 86140; 87040; 87070; 87075; 87086; 87205; 88304; 93005; 96361; 96365; 96375; 99285-25; A9270-GY; J0696; J1100; J1170; J1885; J2060; J2405; J2543; J2704; J3010; J3370; J3490; J7030; J7040; J7050; J7120; Q9967

== ENCOUNTER 2016-10-01 12:38 | Emergency (ER) | payer MEDICAID ==
[2016-10-01 13:00] VITALS: BP 167/119
[2016-10-01] MEDS ORDERED: traMADol 50 MG Tab PO ONE (13:46)
[2016-10-01] MEDS ORDERED: Ibuprofen 800 MG Tab PO ONE (13:47)
--- NOTE | 2016-10-01 13:53 | EDM.PDOC ---
ED HPI GENERAL MEDICAL PROBLEM - General Chief Complaint: ENT Problem Stated Complaint: R EAR ACHE Time Seen by Provider: 10/01/16 13:30 Source of Information: Reports: Patient History Limitations: Reports: No Limitations - History of Present Illness INITIAL COMMENTS - FREE TEXT/NARRATIVE: Patient presets today with complaints of right ear pain, discharge for 4 days. 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: Reports: Musculoskeletal History: Reports: Fracture Psychiatric History: Reports: Anxiety, Depression Endocrine/Metabolic History: Reports: Diabetes, Type II Hematologic History: Reports: Other (See Below) Other Hematologic History: factor 5 Other Immunologic History: last chemo 2 years ago Oncologic (Cancer) History: Reports: Breast, Cervix Dermatologic History: Reports: Cellulitis - Past Surgical History GI Surgical History: Reports: Appendectomy, Cholecystectomy Female Surgical History: Reports: Hysterectomy Oncologic Surgical History: Reports: Mastectomy Social & Family History - Family History : Reports: Renal Disease/Insufficiency - Tobacco Use Smoking Status *Q: Current Every Day Smoker Years of Tobacco use: 30 Packs/Tins Daily: 0.5 Used Tobacco, but Quit: No Second Hand Smoke Exposure: Yes - Caffeine Use Caffeine Use: Reports: Coffee, Energy Drinks, Soda - Alcohol Use Days Per Week of Alcohol Use: 0 - Recreational Drug Use Recreational Drug Use: Yes Drug Use in Last 12 Months: Yes Recreational Drug Type: Reports: Marijuana/Hashish Recreational Drug Use Frequency: Daily Recreational Drug Last Use: today ED ROS ENT - Review of Systems Review Of Systems: See Below Constitutional: Denies: Fever, Chills, Malaise, Night Sweats, Diaphoresis HEENT: Reports: Ear Discharge, Ear Pain, Vertigo, Other (right ear pain, gutierrez discharge. ). Denies: Dental Pain, Eye Discharge, Eye Pain, Nose Pain, Rhinitis , Sinus Problem, Throat Pain, Throat Swelling, Vision Change Respiratory: Denies: Shortness of Breath, Wheezing, Cough, Sputum Cardiovascular: Denies: Blood Pressure Problem, Dyspnea on Exertion, Edema, Lightheadedness, Palpitations, PND, Syncope Endocrine: Reports: No Symptoms GI/Abdominal: Reports: No Symptoms : Reports: No Symptoms Musculoskeletal: Reports: No Symptoms Skin: Reports: No Symptoms Neurological: Reports: Headache. Denies: Confusion, Dizziness, Numbness, Syncope, Tingling, Difficulty Walking, Weakness Psychiatric: Reports: No Symptoms Hematologic/Lymphatic: Reports: No Symptoms Immunologic: Reports: No Symptoms ED EXAM, ENT - Physical Exam Exam: See Below Text/Narrative:: Laura is an alert, oriented and pleasant 45 year old female presenting today with complaints of right sided ear pain, discharge for 4 days. She reports trying multiple OTC medications and treatments without any luck. Today the pain is much more severe, not controlled with naproxen and tylenol. Last Ibuprofen this am. She also complains of hearing loss to right ear. Exam Limited By: No Limitations General Appearance: Alert, WD/WN, Mild Distress Eye Exam: Bilateral Eye: EOMI, PERRL Ears: Hearing Loss, Auricular Erythema, Auricular Tenderness, Mastoid Tenderness , Canal Discharge, Canal Swelling, TM Perforation, Other (Right TM. Left TM normal. She denies trauma to the ears. ). No: Mastoid Swelling Nose: Normal Inspection, Normal Mucousa, No Blood Mouth/Throat: Normal Inspection, Normal Gums, Normal Lips, Normal Oropharynx. No: Dental Pain Head: Atraumatic, Normocephalic Neck: Normal Inspection, Supple, Non-Tender, Full Range of Motion. No: Lymphadenopathy (R), Lymphadenopathy (L) Respiratory/Chest: No Respiratory Distress, Lungs Clear, Normal Breath Sounds, No Accessory Muscle Use, Chest Non-Tender Cardiovascular: Normal Peripheral Pulses, Regular Rate, Rhythm, No Edema, No Gallop, No Murmur, No Rub GI/Abdominal: Normal Bowel Sounds, Soft, Non-Tender, No Organomegaly, No Distention, No Abnormal Bruit Back: Normal Inspection, Full Range of Motion Extremities: Normal Inspection, Normal Range of Motion, Non-Tender, No Pedal Edema, Normal Capillary Refill Neurological: Alert, Oriented, CN II-XII Intact, Normal Cognition, Normal Gait, No Motor/Sensory Deficits Psychiatric: Normal Affect, Normal Mood Skin: Warm, Dry, Intact, Normal Color, No Rash Lymphatic: No Adenopathy Course - Vital Signs Last Recorded V/S: Last Vital Signs Temp 35.3 C 10/01/16 12:59 Pulse 89 10/01/16 12:59 Resp 16 10/01/16 12:59 BP 167/119 H 10/01/16 12:59 Pulse Ox 100 10/01/16 12:59 - Orders/Labs/Meds Meds: Medications Discontinued Medications Generic Name Dose Route Start Last Admin Trade Name Sandrine PRN Reason Stop Dose Admin Ibuprofen 800 mg 10/01/16 13:47 10/01/16 13:54 Motrin PO 10/01/16 13:48 800 mg ONETIME ONE Administration Tramadol HCl 50 mg 10/01/16 13:46 10/01/16 13:54 Ultram PO 10/01/16 13:47 50 mg ONETIME ONE Administration Departure - Departure Time of Disposition: 14:01 Disposition: Home, Self-Care 01 Condition: Good Clinical Impression: Otitis media, Otitis externa - Discharge Information Instructions: Otitis Externa, [id number], Otitis Media, Adult, [id number] Referrals: Andi Laird PA [Primary Care Provider] - Forms: ED Department Discharge Additional Instructions: You are suffering from infection in your right ear canal, in your ear and a perforated ear drum. You can use the ciprodex antibiotic ear drops, 4 drops to the right ear twice a day for 7 days. You are also provided ciprofloxacin 500mg (Tablet) by mouth twice per day for 7 days. You can use tramadol 50 mg PO three times a day for severe pain (#10 tabs). Acetaminophen and ibuprofen as needed for pain. It is very important that you follow up with your primary provider this week by Sunday for a recheck and a referral to Ear/nose/throat specialist if needed. You may suffer from vertigo/dizziness due to the ear drum perforation. Move slowly, stay hydrated and return for worsening. - Assessment/Plan Assessment:: Otitis externa/Otitis media Plan: Tarun can use the ciprodex antibiotic ear drops, 4 drops to the right ear twice a day for 7 days. She is also provided ciprofloxacin 500mg (Tablet) by mouth twice per day for 7 days. She can use tramadol 50 mg PO three times a day for severe pain (#10 tabs). Acetaminophen and ibuprofen as needed for pain. It is very important that the patient follow up with her primary provider this week by Sunday for a recheck and a referral to Ear/nose/throat specialist if needed. She may suffer from vertigo/dizziness due to the ear drum perforation. Move slowly, stay hydrated and return for worsening.
== END 2016-10-01 14:18 | disposition home or self-care (01) ==
LOC: JP.ED 12:38
DX: H60.91 Unspecified otitis externa, right ear (principal); H66.91 Otitis media, unspecified, right ear; J44.9 Chronic obstructive pulmonary disease, unspecified; F17.210 Nicotine dependence, cigarettes, uncomplicated; E11.9 Type 2 diabetes mellitus without complications; Z90.49 Acquired absence of other specified parts of digestive tract; Z90.710 Acquired absence of both cervix and uterus; Z87.440 Personal history of urinary (tract) infections; Z98.890 Other specified postprocedural states; Z88.5 Allergy status to narcotic agent; Z79.4 Long term (current) use of insulin
CPT/HCPCS: 99283; A9270

== ENCOUNTER 2016-11-29 20:14 | Inpatient (IN) | payer MEDICAID ==
[2016-11-29] MEDS ORDERED: Sodium Chloride 0.9% 1,000 ML IV SCH (21:15)
[2016-11-29] MEDS ORDERED: Ondansetron 4 MG/2 ML SDV IVPUSH PRN (21:16)
--- NOTE | 2016-11-29 21:27 | EDM.PDOC ---
ED HPI GENERAL MEDICAL PROBLEM - General Chief Complaint: Gastrointestinal Problem Stated Complaint: MEDICAL Time Seen by Provider: 11/29/16 21:09 Source of Information: Reports: Patient History Limitations: Reports: No Limitations - History of Present Illness INITIAL COMMENTS - FREE TEXT/NARRATIVE: 46 years old female patient presented with chief complaint of abdominal pain, nausea and vomiting and area for almost one week. She has not been able to eat or drink for one whole week. History of diabetes. She stopped taking her insulin 2 days ago because she is not eating or drinking. Blood sugar was elevated at home and the 300 range. Feeling very weak. Also feeling some chest tightness for almost 2 month. Mild dry cough for almost a month as well. Denies any headache. Denies any fever. Mild shortness of breath. Denies any blood in the urine or stool. Frequent loose stool. No recent travel or recent antibiotic use. No sick exposure. Had a cholecystectomy 2 months ago and mastectomy 2 years ago. 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: Musculoskeletal History: Reports: Fracture Neurological History: Reports: Concussion, Head Trauma Psychiatric History: Reports: Anxiety, Depression Endocrine/Metabolic History: Reports: Diabetes, Type II Hematologic History: Reports: Other (See Below) Other Hematologic History: factor 5 Other Immunologic History: last chemo 2 years ago Oncologic (Cancer) History: Reports: Breast, Cervix Dermatologic History: Reports: Cellulitis, Other (See Below) Other Dermatologic History: recent staph infection on scalp - Past Surgical History Respiratory Surgical History: Reports: None GI Surgical History: Reports: Appendectomy, Cholecystectomy Female Surgical History: Reports: Hysterectomy Neurological Surgical History: Reports: Other (See Below) Musculoskeletal Surgical History: Reports: None Oncologic Surgical History: Reports: Mastectomy Social & Family History - Family History : Reports: Renal Disease/Insufficiency - Tobacco Use Smoking Status *Q: Current Every Day Smoker Years of Tobacco use: 28 Packs/Tins Daily: 0.5 Used Tobacco, but Quit: No Second Hand Smoke Exposure: Yes - Caffeine Use Caffeine Use: Reports: Coffee, Energy Drinks, Soda - Alcohol Use Days Per Week of Alcohol Use: 0 - Recreational Drug Use Recreational Drug Use: Yes Drug Use in Last 12 Months: Yes Recreational Drug Type: Reports: Marijuana/Hashish Recreational Drug Use Frequency: Daily Recreational Drug Last Use: today ED ROS GENERAL - Review of Systems Review Of Systems: ROS reveals no pertinent complaints other than HPI. ED EXAM, GI/ABD - Physical Exam Exam: See Below Exam Limited By: No Limitations General Appearance: Alert, WD/WN, No Apparent Distress Nose: Normal Inspection, Normal Mucosa, No Blood Throat/Mouth: Normal Inspection, Normal Lips, Normal Teeth, Normal Gums, Normal Oropharynx, Normal Voice, No Airway Compromise Head: Atraumatic, Normocephalic Neck: Normal Inspection, Supple, Non-Tender, Full Range of Motion Respiratory/Chest: No Respiratory Distress, Lungs Clear, Normal Breath Sounds, No Accessory Muscle Use, Chest Non-Tender Cardiovascular: Normal Peripheral Pulses, Regular Rate, Rhythm, No Edema, No Gallop, No JVD, No Murmur, No Rub GI/Abdominal Exam: Normal Bowel Sounds, Soft, No Organomegaly, No Distention, Tender. No: Guarding, Rigid, Rebound, Mass, Hepatomegaly, Splenomegaly (Female) Exam: Normal External Exam, Normal Speculum Exam, Normal Bimanual Exam Neurological: Alert, Oriented, CN II-XII Intact, Normal Cognition, Normal Gait, Normal Reflexes, No Motor/Sensory Deficits Psychiatric: Normal Affect, Normal Mood Skin Exam: Warm, Dry, Intact, Normal Color, No Rash Course - Vital Signs Last Recorded V/S: Last Vital Signs Temp 36.2 C 11/30/16 03:46 Pulse 71 11/30/16 03:46 Resp 14 11/30/16 03:46 BP 100/68 11/30/16 03:46 Pulse Ox 96 11/30/16 03:46 - Orders/Labs/Meds Orders: Active Orders 24 hr Category Date Time Status Cardiac Monitoring [RC] .As Directed Care 11/29/16 21:23 Inactive Chest 1V Frontal [CR] Stat Exams 11/29/16 21:23 Taken GLUCOSE POC LAB TO COLLECT [POC] Stat Lab 11/29/16 20:57 Ordered EKG 12 Lead [EK] Stat Ther 11/29/16 21:23 Ordered Medication Orders Acetaminophen (Tylenol) 650 mg PO Q4H PRN PRN Reason: Pain (Mild 1-3)/fever Hydromorphone HCl (Dilaudid) 0.5 - 1 mg IVPUSH Q2H PRN PRN Reason: Pain (severe 7-10) Insulin Human Regular 100 unit (/ Sodium Chloride) 101 mls @ 5.05 mls/hr IV TITRATE ANIL; 5 UNITS/HR PRN Reason: Protocol Last Titration: 11/30/16 06:49 Dose: 0 units/hr, 0 mls/hr Titration: 11/30/16 06:17 Dose: 1 units/hr, 1.01 mls/hr Titration: 11/30/16 05:03 Dose: 1.5 units/hr, 1.51 mls/hr Titration: 11/30/16 03:53 Dose: 2 units/hr, 2.02 mls/hr Titration: 11/30/16 03:14 Dose: 3 units/hr, 3.03 mls/hr Titration: 11/30/16 03:11 Dose: 3 units/hr, 3.03 mls/hr Titration: 11/30/16 02:11 Dose: 5 units/hr, 5.05 mls/hr Admin: 11/30/16 00:42 Dose: 8 units/hr, 8.08 mls/hr Sodium Chloride (Normal Saline) 1,000 mls @ 125 mls/hr IV ASDIRECTED ANIL Last Admin: 11/30/16 01:10 Dose: 125 mls/hr Sodium Chloride (Normal Saline) 1,000 mls @ 999 mls/hr IV .BOLUS ANIL Last Admin: 11/30/16 00:05 Dose: 999 mls/hr Ibuprofen (Motrin) 600 mg PO Q6H PRN PRN Reason: Pain/Fever Lorazepam (Ativan) 0.5 - 1 mg IVPUSH Q4H PRN PRN Reason: Nausea/Vomiting Ondansetron HCl (Zofran Odt) 4 mg PO Q6H PRN PRN Reason: Nausea able to take PO Ondansetron HCl (Zofran) 4 mg IV Q6H PRN PRN Reason: Nausea/Vomiting Oxycodone HCl (Oxycodone) 5 mg PO Q4H PRN PRN Reason: Pain (moderate 4-6) Last Admin: 11/30/16 02:18 Dose: 5 mg Pantoprazole Sodium (Protonix Iv) 40 mg IV Q12H [facility] Last Admin: 11/30/16 00:48 Dose: 40 mg Labs: Laboratory Tests 11/29/16 11/29/16 11/29/16 Range/Units 21:27 21:27 21:27 WBC 5.6 (4.5-11.0) K/uL RBC 4.75 (3.30-5.50) M/uL Hgb 14.5 (12.0-15.0) g/dL Hct 42.2 (36.0-48.0) % MCV 89 (80-98) fL MCH 31 (27-31) pg MCHC 34 (32-36) % Plt Count 236 (150-400) K/uL Neut % (Auto) 60 (36-66) % Lymph % (Auto) 29 (24-44) % Mckean % (Auto) 7 H (2-6) % Eos % (Auto) 2 (2-4) % Baso % (Auto) 1 (0-1) % Sodium 132 L (140-148) mmol/L Potassium 4.7 (3.6-5.2) mmol/L Chloride 96 L (100-108) mmol/L Carbon Dioxide 15 L (21-32) mmol/L Anion Gap 25.7 H (5.0-14.0) mmol/L BUN 10 (7-18) mg/dL Creatinine 0.7 (0.6-1.0) mg/dL Est Cr Clr Drug Dosing 79.94 mL/min Estimated GFR (MDRD) > 60 (>60) Glucose 432 H* (74-106) mg/dL Calcium 7.9 L (8.5-10.1) mg/dL Total Bilirubin 0.4 (0.2-1.0) mg/dL AST 31 D (15-37) U/L ALT 78 (12-78) U/L Alkaline Phosphatase 91 (46-116) U/L Troponin I (0.000-0.056) ng/mL Total Protein 5.7 L (6.4-8.2) g/dL Albumin 2.7 L (3.4-5.0) g/dL Globulin 3.0 (2.3-3.5) g/dL Albumin/Globulin Ratio 0.9 L (1.2-2.2) HCG, Qual Negative Ketones Moderate H (NEGATIVE) 11/29/16 Range/Units 21:30 WBC (4.5-11.0) K/uL RBC (3.30-5.50) M/uL Hgb (12.0-15.0) g/dL Hct (36.0-48.0) % MCV (80-98) fL MCH (27-31) pg MCHC (32-36) % Plt Count (150-400) K/uL Neut % (Auto) (36-66) % Lymph % (Auto) (24-44) % Mckean % (Auto) (2-6) % Eos % (Auto) (2-4) % Baso % (Auto) (0-1) % Sodium (140-148) mmol/L Potassium (3.6-5.2) mmol/L Chloride (100-108) mmol/L Carbon Dioxide (21-32) mmol/L Anion Gap (5.0-14.0) mmol/L BUN (7-18) mg/dL Creatinine (0.6-1.0) mg/dL Est Cr Clr Drug Dosing mL/min Estimated GFR (MDRD) (>60) Glucose (74-106) mg/dL Calcium (8.5-10.1) mg/dL Total Bilirubin (0.2-1.0) mg/dL AST (15-37) U/L ALT (12-78) U/L Alkaline Phosphatase (46-116) U/L Troponin I < 0.017 (0.000-0.056) ng/mL Total Protein (6.4-8.2) g/dL Albumin (3.4-5.0) g/dL Globulin (2.3-3.5) g/dL Albumin/Globulin Ratio (1.2-2.2) HCG, Qual Ketones (NEGATIVE) Meds: Medications Generic Name Dose Route Start Last Admin Trade Name Freq PRN Reason Stop Dose Admin Acetaminophen 650 mg 11/30/16 00:28 Tylenol PO Q4H PRN Pain (Mild 1-3)/fever Hydromorphone HCl 0.5 - 1 mg 11/30/16 00:28 Dilaudid IVPUSH Q2H PRN Pain (severe 7-10) Insulin Human Regular 100 unit 101 mls @ 5.05 mls/hr 11/30/16 00:28 11/30/16 06:49 / Sodium Chloride IV 0 units/hr TITRATE ANIL 0 mls/hr Protocol Titration 5 UNITS/HR Sodium Chloride 1,000 mls @ 125 mls/hr 11/30/16 00:28 11/30/16 01:10 Normal Saline IV 125 mls/hr ASDIRECTED ANIL Administration Sodium Chloride 1,000 mls @ 999 mls/hr 11/30/16 00:28 11/30/16 00:05 Normal Saline IV 999 mls/hr .BOLUS ANIL Administration Ibuprofen 600 mg 11/30/16 00:28 Motrin PO Q6H PRN Pain/Fever Lorazepam 0.5 - 1 mg 11/30/16 00:28 Ativan IVPUSH Q4H PRN Nausea/Vomiting Ondansetron HCl 4 mg 11/30/16 00:28 Zofran Odt PO Q6H PRN Nausea able to take PO Ondansetron HCl 4 mg 11/30/16 00:28 Zofran IV Q6H PRN Nausea/Vomiting Oxycodone HCl 5 mg 11/30/16 00:28 11/30/16 02:18 Oxycodone PO 5 mg Q4H PRN Administration Pain (moderate 4-6) Pantoprazole Sodium 40 mg 11/30/16 00:28 11/30/16 00:48 Protonix Iv IV 40 mg Q12H ANIL Administration Discontinued Medications Generic Name Dose Route Start Last Admin Trade Name Freq PRN Reason Stop Dose Admin Sodium Chloride 1,000 mls @ 125 mls/hr 11/29/16 21:15 11/29/16 21:27 Normal Saline IV 125 mls/hr ASDIRECTED ANIL Administration Insulin Human Regular 100 unit 101 mls @ 5.05 mls/hr 11/29/16 22:45 / Sodium Chloride IV .CONTINUOUS ANIL Protocol 5 UNITS/HR Ondansetron HCl 4 mg 11/29/16 21:16 11/29/16 21:27 Zofran IVPUSH 4 mg ONETIME PRN Administration Nausea/Vomiting - Re-Assessments/Exams Free Text/Narrative Re-Assessment/Exam: 11/30/16 07:13 Patient was seen and examined shortly after arrival. Given 1 L normal saline bolus. On court monitor. Lab and imaging reviewed with the patient. Consistent with DKA. Most likely secondary to gastroenteritis and also not taken her insulin for the last few days. I did start patient on an insulin infusion. Case was discussed with Dr. De Paz hospitalist on-call and he had since his admission for further management. Patient agrees with the plan. Stable for admission.. Departure - Departure Time of Disposition: 00:15 Disposition: Admitted As Inpatient 67 Clinical Impression: Diabetic ketoacidosis associated with type 2 diabetes mellitus - Discharge Information - My Orders Last 24 Hours: My Active Orders 11/29/16 20:57 GLUCOSE POC LAB TO COLLECT [POC] Stat 11/29/16 21:23 Cardiac Monitoring [RC] .As Directed Chest 1V Frontal [CR] Stat EKG 12 Lead [EK] Stat - Assessment/Plan Last 24 Hours: My Active Orders 11/29/16 20:57 GLUCOSE POC LAB TO COLLECT [POC] Stat 11/29/16 21:23 Cardiac Monitoring [RC] .As Directed Chest 1V Frontal [CR] Stat EKG 12 Lead [EK] Stat Plan: Admission to ICU under care of Dr. De Paz hospitalist.
--- NOTE | 2016-11-29 23:45 | PCM.HP ---
H&P History of Present Illness - General Date of Service: 11/29/16 Admit Problem/Dx: Admission Diagnosis/Problem Admission Diagnosis/Problem Diabetic ketoacidosis Source of Information: Patient, Provider History Limitations: Reports: No Limitations - History of Present Illness Initial Comments - Free Text/Narative: Laura presents to the emergency room tonight with one-week nausea, vomiting diarrhea. She also has associated epigastric and lower abdominal pain. This is a sharp and crampy pain that radiates throughout her abdomen. Bowel movements seem to make the lower abdominal pain worse. She has not been taking anything to make it feel better. Pain in general is mild to moderate but the sharp episodes are severe. Taking a deep breath does make the pain worse. She's had subjective fevers and chills at home. No obvious sick contacts. She has been weak and fatigued. Symptoms have progressed over the past week and have been the most severe the past 48 hours. She reports many episodes (greater than 10) of loose to watery diarrhea per day. Diarrhea persists into the night. She has not been using her insulin for the past 48 hours because she was home alone , not eating and worried that her blood sugars go too low. She has not traveled anywhere. Last antibiotics were approximately 2 months ago. Workup in the emergency room was suggestive of diabetic ketoacidosis. She'll be admitted to the intensive care unit on an insulin drip for further management. 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: Musculoskeletal History: Reports: Fracture Neurological History: Reports: Concussion, Head Trauma Psychiatric History: Reports: Anxiety, Depression Endocrine/Metabolic History: Reports: Diabetes, Type II Hematologic History: Reports: Other (See Below) Other Hematologic History: factor 5 Other Immunologic History: last chemo 2 years ago Oncologic (Cancer) History: Reports: Breast, Cervix Dermatologic History: Reports: Cellulitis, Other (See Below) Other Dermatologic History: recent staph infection on scalp - Past Surgical History Respiratory Surgical History: Reports: None GI Surgical History: Reports: Appendectomy, Cholecystectomy Female Surgical History: Reports: Hysterectomy Neurological Surgical History: Reports: Other (See Below) Musculoskeletal Surgical History: Reports: None Oncologic Surgical History: Reports: Mastectomy Social & Family History - Family History : Reports: Renal Disease/Insufficiency - Tobacco Use Smoking Status *Q: Current Every Day Smoker Years of Tobacco use: 28 Packs/Tins Daily: 0.5 Used Tobacco, but Quit: No Second Hand Smoke Exposure: Yes - Caffeine Use Caffeine Use: Reports: Coffee, Energy Drinks, Soda - Alcohol Use Days Per Week of Alcohol Use: 0 - Recreational Drug Use Recreational Drug Use: Yes Drug Use in Last 12 Months: Yes Recreational Drug Type: Reports: Marijuana/Hashish Recreational Drug Use Frequency: Daily Recreational Drug Last Use: today H&P Review of Systems - Review of Systems: Review Of Systems: See Below Free Text/Narrative: A complete 12 point review of systems was obtained. Pertinent positives and negatives are noted in the history of present illness. All other systems were reviewed and were negative except as noted. Exam - Exam Exam: See Below - Vital Signs Vital Signs: Last Vital Signs Temp 36 C 11/29/16 23:37 Pulse 72 11/29/16 23:37 Resp 18 11/29/16 23:37 BP 112/72 11/29/16 23:37 Pulse Ox 96 11/29/16 23:37 Weight: 49.895 kg - Exam Quality Assessment: No: Supplemental Oxygen General: Alert, Oriented, Cooperative, Mild Distress, Lethargic HEENT: Conjunctiva Clear. No: Mucosa Moist & [place] (dry), Scleral Icterus Neck: Supple, Trachea Midline. No: Lymphadenopathy Lungs: Clear to Auscultation, Normal Respiratory Effort Cardiovascular: Regular Rate, Regular Rhythm. No: Systolic Murmur GI/Abdominal Exam: Normal Bowel Sounds, Soft, No Distention, No Mass, Tender ( Mild diffuse tenderness) Back Exam: Normal Inspection. No: Muscle Spasm Extremities: Pedal Edema (Mild bilateral ankle edema). No: Increased Warmth Peripheral Pulses: 2+: Dorsalis Pedis (L), Dorsalis Pedis (R) Skin: Warm, Dry, Intact. No: Rash Neuro Extensive - Mental Status: Alert, Oriented x3, Nl Response to Commands Neuro Extensive - Motor, Sensory, Reflexes: CN II-XII Intact. No: Dysarthria, Abnormal Motor, Tremor Psychiatric: Alert, Normal Affect - Patient Data Lab Results Last 24 hrs: Laboratory Results - last 24 hr 11/29/16 11/29/16 11/29/16 Range/Units 21:27 21:27 21:27 WBC 5.6 (4.5-11.0) K/uL RBC 4.75 (3.30-5.50) M/uL Hgb 14.5 (12.0-15.0) g/dL Hct 42.2 (36.0-48.0) % MCV 89 (80-98) fL MCH 31 (27-31) pg MCHC 34 (32-36) % Plt Count 236 (150-400) K/uL Neut % (Auto) 60 (36-66) % Lymph % (Auto) 29 (24-44) % [place] % (Auto) 7 H (2-6) % Eos % (Auto) 2 (2-4) % Baso % (Auto) 1 (0-1) % Sodium 132 L (140-148) mmol/L Potassium 4.7 (3.6-5.2) mmol/L Chloride 96 L (100-108) mmol/L Carbon Dioxide 15 L (21-32) mmol/L Anion Gap 25.7 H (5.0-14.0) mmol/L BUN 10 (7-18) mg/dL Creatinine 0.7 (0.6-1.0) mg/dL Est Cr Clr Drug Dosing 79.94 mL/min Estimated GFR (MDRD) > 60 (>60) Glucose 432 H* (74-106) mg/dL Calcium 7.9 L (8.5-10.1) mg/dL Total Bilirubin 0.4 (0.2-1.0) mg/dL AST 31 D (15-37) U/L ALT 78 (12-78) U/L Alkaline Phosphatase 91 (46-116) U/L Troponin I (0.000-0.056) ng/mL Total Protein 5.7 L (6.4-8.2) g/dL Albumin 2.7 L (3.4-5.0) g/dL Globulin 3.0 (2.3-3.5) g/dL Albumin/Globulin Ratio 0.9 L (1.2-2.2) HCG, Qual Negative Ketones Moderate H (NEGATIVE) 11/29/16 Range/Units 21:30 WBC (4.5-11.0) K/uL RBC (3.30-5.50) M/uL Hgb (12.0-15.0) g/dL Hct (36.0-48.0) % MCV (80-98) fL MCH (27-31) pg MCHC (32-36) % Plt Count (150-400) K/uL Neut % (Auto) (36-66) % Lymph % (Auto) (24-44) % [place] % (Auto) (2-6) % Eos % (Auto) (2-4) % Baso % (Auto) (0-1) % Sodium (140-148) mmol/L Potassium (3.6-5.2) mmol/L Chloride (100-108) mmol/L Carbon Dioxide (21-32) mmol/L Anion Gap (5.0-14.0) mmol/L BUN (7-18) mg/dL Creatinine (0.6-1.0) mg/dL Est Cr Clr Drug Dosing mL/min Estimated GFR (MDRD) (>60) Glucose (74-106) mg/dL Calcium (8.5-10.1) mg/dL Total Bilirubin (0.2-1.0) mg/dL AST (15-37) U/L ALT (12-78) U/L Alkaline Phosphatase (46-116) U/L Troponin I < 0.017 (0.000-0.056) ng/mL Total Protein (6.4-8.2) g/dL Albumin (3.4-5.0) g/dL Globulin (2.3-3.5) g/dL Albumin/Globulin Ratio (1.2-2.2) HCG, Qual Ketones (NEGATIVE) Result Diagrams: 11/29/16 21:27 11/29/16 21:27 Imaging Impressions Last 24 hrs: Chest x-ray - images personally reviewed - clear, there is no evidence for mass , effusion, infiltrate or congestive heart failure *Q Meaningful Use (ADM) - VTE *Q VTE Criteria *Q: - VTE Risk Assess *Q Each Risk Factor Represents 1 Point: Age 41 - 59 years, Swollen Legs, Current Total Score 1 Point Risk Factors: 2 Each Risk Factor Represents 2 Points: Previous Malignancy Total Score 2 Point Risk Factors: 2 Each Risk Factor Represents 3 Points: None Total Score 3 Point Risk Factors: 0 Each Risk Factor Represents 5 Points: None Total Score 5 Point Risk Factors: 0 Venous Thromboembolism Risk Factor Score *Q: 4 - Stroke *Q Stroke Criteria *Q: - AMI *Q AMI Criteria *Q: - Problem List (1) DKA (diabetic ketoacidoses) SNOMED Code(s): 015501093, 541684346 ICD Code: E13.10 - OTH DIABETES MELLITUS WITH KETOACIDOSIS WITHOUT COMA Status: Acute Current Visit: Yes Qualifiers: Diabetes mellitus type: type 1 Diabetes mellitus complication detail: without coma Qualified Code(s): E10.10 - Type 1 diabetes mellitus with ketoacidosis without coma (2) Gastroenteritis SNOMED Code(s): 60777404 ICD Code: K52.9 - NONINFECTIVE GASTROENTERITIS AND COLITIS, UNSPECIFIED Status: Acute Current Visit: Yes Problem List Initiated/Reviewed/Updated: Yes Orders Last 24hrs: Active Orders 24 hr Category Date Time Status Patient Status Manage Transfer [TRANSFER] Routine ADT 11/29/16 23:28 Ordered Cardiac Monitoring [RC] .As Directed Care 11/29/16 21:23 Active EKG Documentation Completion [RC] ASDIRECTED Care 11/29/16 21:24 Active Chest 1V Frontal [CR] Stat Exams 11/29/16 21:23 Taken GLUCOSE POC LAB TO COLLECT [POC] Stat Lab 11/29/16 20:57 Ordered Insulin Regular, Human [NovoLIN R] 100 unit Med 11/29/16 22:45 Active Sodium Chloride 0.9% [Normal Saline] 100 ml IV .CONTINUOUS Ondansetron [Zofran] Med 11/29/16 21:16 Active 4 mg IVPUSH ONETIME PRN Sodium Chloride 0.9% [Normal Saline] 1,000 ml Med 11/29/16 21:15 Active IV ASDIRECTED Resuscitation Status Routine Resus Stat 11/29/16 23:29 Ordered EKG 12 Lead [EK] Stat Ther 11/29/16 21:23 Ordered Medication Orders Sodium Chloride (Normal Saline) 1,000 mls @ 125 mls/hr IV ASDIRECTED ANIL Last Admin: 11/29/16 21:27 Dose: 125 mls/hr Insulin Human Regular 100 unit (/ Sodium Chloride) 101 mls @ 5.05 mls/hr IV .CONTINUOUS ANIL; 5 UNITS/HR PRN Reason: Protocol Ondansetron HCl (Zofran) 4 mg IVPUSH ONETIME PRN PRN Reason: Nausea/Vomiting Last Admin: 11/29/16 21:27 Dose: 4 mg Assessment/Plan Comment:: Assessment and plan - Diabetic ketoacidosis - trigger likely gastroenteritis. Patient has hyperglycemia, anion gap metabolic acidosis and evidence for dehydration though it seems to be on the mild side at this time. No significant electrolyte derangements at this time. -Admit to the intensive care unit with insulin drip -Accu-Cheks every hour until sugar stabilizes -Repeat labs in approximately 5 hours -Transition to subcutaneous insulin once the anion gap has closed -Cardiac monitoring -Aggressive IV fluids Gastroenteritis - exam relatively benign at this time and no evidence for acute abdomen. She has had antibiotics in the past couple of months and Clostridium difficile infection is possible. No travel or sick contacts. Maybe prolonged viral illness. -stool studies -C. difficile testing -Fecal leukocytes -Symptomatic management -Consider Imodium if C. difficile testing negative Maintenance issues - - DVT prophylaxis - SCDs - GI prophylaxis - PPI - Nutrition - clear liquids - Caldwell catheter - not indicated CODE STATUS - full code Admission justification - This patient will be admitted for inpatient services and is medically appropriate meeting medical necessity for inpatient admission as outlined in my documentation. I reasonably expect the patient will require inpatient services that span a period time over 2 midnights. I reasonably expect this patient to be discharged or transferred within 96 hours [facility]. Disposition - anticipate discharge to home after the hospital stay Primary care physician - Andi De Paz M.D.
[2016-11-30] MEDS ORDERED: oxyCODONE 5 MG Tab PO PRN (00:28)
[2016-11-30] MEDS ORDERED: Ondansetron 4 MG/2 ML SDV IV PRN (00:28)
[2016-11-30] MEDS ORDERED: Ondansetron 4 MG Tab.DIS PO PRN (00:28)
[2016-11-30] MEDS ORDERED: Sodium Chloride 0.9% 1,000 ML IV SCH (00:28)
[2016-11-30] MEDS ORDERED: Acetaminophen 325 MG Tab PO PRN (00:28)
[2016-11-30] MEDS ORDERED: LORazepam 2 MG/ML MDV IVPUSH PRN (00:28)
[2016-11-30] MEDS ORDERED: Ibuprofen 600 MG Tab PO PRN (00:28)
[2016-11-30] MEDS ORDERED: HYDROmorphone 0.5 MG/0.5 ML Syringe IVPUSH PRN (00:28)
[2016-11-30] MEDS: Pantoprazole 40 MG Vial IV SCH ×2 (00:48→12:57)
[2016-11-30] MEDS: Sodium Chloride 0.9% 1,000 ML IV SCH ×3 (01:10→20:25)
--- NOTE | 2016-11-30 09:05 | PCM.PN ---
- General Info Date of Service: 11/30/16 Functional Status: Reports: Pain Controlled - Review of Systems General: Reports: Weakness Gastrointestinal: Reports: Abdominal Pain Systems Review Comment:: No acute events overnight. Ongoing abdominal pain though it has improved. No nausea or vomiting. No diarrhea overnight. No fevers. Blood sugars came down nicely. Ketoacidosis has resolved. Tolerating clear liquids. - Patient Data Vitals - Most Recent: Last Vital Signs Temp 35.9 C 11/30/16 08:19 Pulse 71 11/30/16 03:46 Resp 15 11/30/16 07:41 BP 97/61 11/30/16 07:41 Pulse Ox 99 11/30/16 07:41 Weight - Most Recent: 45.6 kg I&O - Last 24 Hours: Intake & Output 11/29/16 11/30/16 11/30/16 22:59 06:59 14:59 Intake Total 1727 Balance 1727 Lab Results Last 24 Hours: Laboratory Results - last 24 hr 11/30/16 11/30/16 Range/Units 04:40 04:40 WBC 5.4 (4.5-11.0) K/uL RBC 4.42 (3.30-5.50) M/uL Hgb 13.2 (12.0-15.0) g/dL Hct 39.0 (36.0-48.0) % MCV 88 (80-98) fL MCH 30 (27-31) pg MCHC 34 (32-36) % Plt Count 239 (150-400) K/uL Sodium 138 L (140-148) mmol/L Potassium 3.6 (3.6-5.2) mmol/L Chloride 105 (100-108) mmol/L Carbon Dioxide 23 (21-32) mmol/L Anion Gap 13.6 (5.0-14.0) mmol/L BUN 8 (7-18) mg/dL Creatinine 0.6 (0.6-1.0) mg/dL Est Cr Clr Drug Dosing 85.24 mL/min Estimated GFR (MDRD) > 60 (>60) Glucose 160 H (74-106) mg/dL Calcium 7.5 L (8.5-10.1) mg/dL Magnesium 1.3 L (1.8-2.4) mg/dL Med Orders - Current: Current Medications Acetaminophen (Tylenol) 650 mg PO Q4H PRN PRN Reason: Pain (Mild 1-3)/fever Hydromorphone HCl (Dilaudid) 0.5 - 1 mg IVPUSH Q2H PRN PRN Reason: Pain (severe 7-10) Sodium Chloride (Normal Saline) 1,000 mls @ 125 mls/hr IV ASDIRECTED [facility] Last Admin: 11/30/16 01:10 Dose: 125 mls/hr Ibuprofen (Motrin) 600 mg PO Q6H PRN PRN Reason: Pain/Fever Lorazepam (Ativan) 0.5 - 1 mg IVPUSH Q4H PRN PRN Reason: Nausea/Vomiting Ondansetron HCl (Zofran Odt) 4 mg PO Q6H PRN PRN Reason: Nausea able to take PO Ondansetron HCl (Zofran) 4 mg IV Q6H PRN PRN Reason: Nausea/Vomiting Oxycodone HCl (Oxycodone) 5 mg PO Q4H PRN PRN Reason: Pain (moderate 4-6) Last Admin: 11/30/16 02:18 Dose: 5 mg Pantoprazole Sodium (Protonix Iv) 40 mg IV Q12H ANIL Last Admin: 11/30/16 00:48 Dose: 40 mg Discontinued Medications Sodium Chloride (Normal Saline) 1,000 mls @ 125 mls/hr IV ASDIRECTED [facility] Last Admin: 11/29/16 21:27 Dose: 125 mls/hr Insulin Human Regular 100 unit (/ Sodium Chloride) 101 mls @ 5.05 mls/hr IV .CONTINUOUS ANIL; 5 UNITS/HR PRN Reason: Protocol Insulin Human Regular 100 unit (/ Sodium Chloride) 101 mls @ 5.05 mls/hr IV TITRATE ANIL; 5 UNITS/HR PRN Reason: Protocol Last Titration: 11/30/16 06:49 Dose: 0 units/hr, 0 mls/hr Sodium Chloride (Normal Saline) 1,000 mls @ 999 mls/hr IV .BOLUS ANIL Last Admin: 11/30/16 00:05 Dose: 999 mls/hr Ondansetron HCl (Zofran) 4 mg IVPUSH ONETIME PRN PRN Reason: Nausea/Vomiting Last Admin: 11/29/16 21:27 Dose: 4 mg - Exam Quality Assessment: No: Supplemental Oxygen General: Alert, Oriented, Cooperative, No Acute Distress Neck: Supple Lungs: Normal Respiratory Effort GI/Abdominal Exam: Soft, No Distention Extremities: Normal Inspection. No: Increased Warmth Skin: Warm, Dry Psy/Mental Status: Alert, Normal Affect - Problem List & Annotations (1) DKA (diabetic ketoacidoses) SNOMED Code(s): 007315423, 363959922 Code(s): E13.10 - OTH DIABETES MELLITUS WITH KETOACIDOSIS WITHOUT COMA Status: Acute Current Visit: Yes Qualifiers: Diabetes mellitus type: type 1 Diabetes mellitus complication detail: without coma Qualified Code(s): E10.10 - Type 1 diabetes mellitus with ketoacidosis without coma (2) Gastroenteritis SNOMED Code(s): 06762756 Code(s): K52.9 - NONINFECTIVE GASTROENTERITIS AND COLITIS, UNSPECIFIED Status: Acute Current Visit: Yes - Problem List Review Problem List Initiated/Reviewed/Updated: Yes - My Orders Last 24 Hours: My Active Orders 11/29/16 23:29 Resuscitation Status Routine 11/30/16 00:28 Patient Status [ADT] Routine Bedrest Bathroom Privileges [RC] ASDIRECTED Cardiac Monitoring [RC] CONTINUOUS Communication Order [RC] ASDIRECTED Diabetes Education [RC] Click to Edit Intake and Output [RC] QSHIFT Notify Provider Vital Signs [RC] ASDIRECTED Notify Provider [RC] PRN Oxygen Therapy [RC] PRN Pulse Oximetry [RC] CONTINUOUS Vital Signs [RC] Q2HR CLOSTRIDIUM DIFFICILE BY PCR [RM] Routine CULTURE STOOL + SHIGATOX [RM] Routine UA W/MICROSCOPIC [URIN] Routine WBC, STOOL [OP] Routine Acetaminophen [Tylenol] 650 mg PO Q4H PRN HYDROmorphone [Dilaudid] 0.5 - 1 mg IVPUSH Q2H PRN Ibuprofen [Motrin] 600 mg PO Q6H PRN LORazepam [Ativan] 0.5 - 1 mg IVPUSH Q4H PRN Ondansetron [Zofran ODT] 4 mg PO Q6H PRN Ondansetron [Zofran] 4 mg IV Q6H PRN Pantoprazole [ProTONIX IV] 40 mg IV Q12H Sodium Chloride 0.9% [Normal Saline] 1,000 ml IV ASDIRECTED oxyCODONE 5 mg PO Q4H PRN Sequential Compression Device [OM.PC] Per Unit Routine 11/30/16 09:03 Blood Glucose Check, Bedside [RC] QIDACANDBED 11/30/16 09:15 Insulin Detemir [Levemir] 10 unit SUBCUT ONETIME ONE 11/30/16 11:00 Insulin Aspart [NovoLOG] See Protocol SUBCUT QIDACANDBED 11/30/16 12:00 Insulin Aspart [NovoLOG] 4 unit SUBCUT TIDMEALS 11/30/16 21:00 Insulin Detemir [Levemir] 20 unit SUBCUT BEDTIME 11/30/16 Breakfast Consistent Carbohydrate Diet [DIET] - Plan Plan:: Assessment and plan - Diabetic ketoacidosis - trigger likely gastroenteritis. DKA has resolved and the insulin drip has been stopped. Tolerating clear liquids. -Small dose of Levemir this morning and 20 units this evening -4 units of NovoLog per meal -Low-dose sliding scale insulin -Gentle IV fluids -4 times a day Accu-Cheks Gastroenteritis - exam relatively benign and diarrhea and vomiting seem to have resolved. -Pain control -stool studies -C. difficile testing -Fecal leukocytes -Symptomatic management Tobacco dependence - patient interested in a nicotine patch today. -Nicotine patch -Encourage cessation Maintenance issues - - DVT prophylaxis - SCDs - GI prophylaxis - PPI - Nutrition - advance diet as tolerated Disposition - anticipate discharge to home after the hospital stay Filipe De Paz M.D.
[2016-11-30] MEDS ORDERED: Insulin Detemir 100 Units/ML 3 ML Pen SUBCUT ONE (09:30)
[2016-11-30] MEDS ORDERED: Nicotine 14 MG/24 Hr Patch TRDERM SCH (10:30)
[2016-11-30] MEDS ORDERED: Magnesium Sulfate/Water 2 GM in Premix Bag 1 BAG IV SCH (11:00)
[2016-11-30] MEDS: Insulin Aspart 100 Units/ML 3 ML Pen SUBCUT SCH ×5 (12:58→21:36)
--- NOTE | 2016-11-30 15:00 | CR ---
Chest 1V Frontal INDICATION: Chest Pain COMPARISON: 03/25/2014 FINDINGS: Single view of the chest obtained shows normal heart size. Right IJ Port-A-Cath removed. No infiltrate or pleural effusion. No signs of pulmonary edema. Postop change left axilla. Presumed p ostop change anterior left fourth rib which is a new finding. Tenting left hemidiaphragm also new. Pl ease correlate with surgical history. Tumor also in the differential. IMPRESSION: 1. Nothing acute in the chest. 2. Presumed surgical absence left fourth rib though correlate with surgical history.
[2016-11-30] MEDS: Pantoprazole 40 MG Tab.CR PO SCH (17:12)
[2016-11-30] MEDS: Nicotine 21 MG/24 Hr Patch TRDERM SCH (18:20)
[2016-11-30] MEDS: Nicotine 10 MG/Cartridge Inhaler 168 Cartridges/Box INH PRN (18:54)
[2016-11-30] MEDS ORDERED: Insulin Detemir 100 Units/ML 3 ML Pen SUBCUT SCH (21:00)
[2016-12-01] MEDS: Sodium Chloride 0.9% 1,000 ML IV SCH (04:25)
[2016-12-01] MEDS: Pantoprazole 40 MG Tab.CR PO SCH (07:31)
[2016-12-01] MEDS: Insulin Aspart 100 Units/ML 3 ML Pen SUBCUT SCH ×2 (07:31→07:33)
[2016-12-01 07:40] VITALS: BP 134/94
[2016-12-01] MEDS: Nicotine 21 MG/24 Hr Patch TRDERM SCH (08:57)
[2016-12-01] MEDS: Nicotine 10 MG/Cartridge Inhaler 168 Cartridges/Box INH PRN (09:34)
--- NOTE | 2016-12-01 10:07 | PCM.DCSUM1 ---
Discharge Summary - Hospital Course Brief History: 46-year-old female with history of type 1 diabetes who presented with abdominal pain, nausea and vomiting. She was admitted for management of diabetic ketoacidosis and presumed gastroenteritis. - Discharge Data Discharge Date: 12/01/16 Discharge Disposition: Home, Self-Care 01 Condition: Good - Discharge Diagnosis/Problem(s) (1) DKA (diabetic ketoacidoses) SNOMED Code(s): 881497758, 489913436 ICD Code: E13.10 - OTH DIABETES MELLITUS WITH KETOACIDOSIS WITHOUT COMA Status: Acute Qualifiers: Diabetes mellitus type: type 1 Diabetes mellitus complication detail: without coma Qualified Code(s): E10.10 - Type 1 diabetes mellitus with ketoacidosis without coma (2) Gastroenteritis SNOMED Code(s): 70769918 ICD Code: K52.9 - NONINFECTIVE GASTROENTERITIS AND COLITIS, UNSPECIFIED Status: Acute - Patient Summary/Data Hospital Course: Laura presented to the emergency room with nausea, vomiting, diarrhea and abdominal pain. Workup in the emergency room suggested gastroenteritis and diabetic ketoacidosis. She was admitted to the intensive care unit on insulin drip. She was managed with IV fluids as well as pain control and symptom management. Overnight after admission her blood sugars improved dramatically. Repeat electrolyte testing the morning after admission revealed that her anion gap had normalized. At this point we transitioned her to subcutaneous insulin and administered heart of her long-acting dose in the morning and the remainder in the evening. Her diarrhea and vomiting resolved after admission without any sort of intervention other than hydration. She has not had a recurrence of the vomiting or diarrhea during the hospital stay. Blood sugars have been mildly elevated though a very acceptable throughout the hospital stay. She has been receiving slightly less than her usual insulin because of suboptimal oral intake the day after admission. She feels well and I believe she is safe for outpatient management at this time. She will resume her usual home insulin dosing and do her best to maintain hydration. Towards the end of the discharge process she mentioned that she has been having quite a bit of difficulty with anxiety recently. She has previously taken escitalopram and is interested in restarting that again she felt that it helped. I did provide a prescription for a low dose of this medication. She will need further titration as an outpatient. She is interested in outpatient mental health follow-up as well. - Patient Instructions Diet: Diabetic Diet Activity: As Tolerated Showering/Bathing: May Shower Notify Provider of: Fever, Increased Pain, Nausea and/or Vomiting Other/Special Instructions: 1. You were in the hospital for management of diabetic ketoacidosis caused by gastroenteritis. The ketoacidosis resolved with IV fluids and IV insulin. You are back to your usual insulin dosing at this time. The gastroenteritis appears to have resolved with no ongoing vomiting or diarrhea. I would recommend that you eat soft and bland foods for the next few days and then slowly return to your normal diet. 2. I have prescribed escitalopram (Lexapro) 10 mg daily. You will take this medication once daily to help reduce anxiety symptoms. This medication may take 2-4 weeks to provide benefit. The dose may be adjusted depending on your response after 2-4 weeks. 3. Please continue your usual home insulin dosing. 4. Please seek medical attention if you develop fever greater than 101, have severe abdominal pain or persistent vomiting or diarrhea. - Discharge Plan Prescriptions/Med Rec: Escitalopram [Lexapro] 10 mg PO DAILY #30 tab Home Medications: Home Meds Insulin Aspart [NovoLOG] 4 - 10 units SQ QID 08/22/16 [History] Insulin Glarg,Human.Rec.Analog [Lantus Solostar] 30 unit SUBCUT BEDTIME [History] Escitalopram [Lexapro] 10 mg PO DAILY #30 tab 12/01/16 [Rx] Patient Handouts: Diabetic Ketoacidosis, Smoking Cessation, Tips for Success, Escitalopram tablets Referrals: Andi Laird PA [Primary Care Provider] - (f/u as needed if symptoms do not continue to get better) - Discharge Summary/Plan Comment DC Time >30 min.: No (25) - Patient Data Vitals - Most Recent: Last Vital Signs Temp 35.8 C 12/01/16 07:38 Pulse 95 12/01/16 07:38 Resp 14 12/01/16 07:38 BP 134/94 H 12/01/16 07:38 Pulse Ox 100 12/01/16 07:38 Weight - Most Recent: 107 kg I&O - Last 24 hours: Intake & Output 11/30/16 12/01/16 12/01/16 22:59 06:59 14:59 Intake Total 1534 1941 952 Output Total 400 Balance 1134 1941 952 COTY Results - Last 24 hrs: Microbiology 11/30/16 23:25 Stool for WBCs - Final Stool / Feces NO WBC SEEN Med Orders - Current: Current Medications Acetaminophen (Tylenol) 650 mg PO Q4H PRN PRN Reason: Pain (Mild 1-3)/fever Hydromorphone HCl (Dilaudid) 0.5 - 1 mg IVPUSH Q2H PRN PRN Reason: Pain (severe 7-10) Sodium Chloride (Normal Saline) 1,000 mls @ 125 mls/hr IV ASDIRECTED [facility] Last Admin: 12/01/16 04:25 Dose: 125 mls/hr Ibuprofen (Motrin) 600 mg PO Q6H PRN PRN Reason: Pain/Fever Insulin Aspart (Novolog) 4 unit SUBCUT TIDMEALS [facility] Last Admin: 12/01/16 07:33 Dose: 4 units Insulin Aspart (Novolog) 0 unit SUBCUT QIDACANDBED [facility] PRN Reason: Protocol Last Admin: 12/01/16 07:31 Dose: 2 units Insulin Detemir (Levemir) 20 unit SUBCUT BEDTIME [facility] Last Admin: 11/30/16 21:35 Dose: 20 units Lorazepam (Ativan) 0.5 - 1 mg IVPUSH Q4H PRN PRN Reason: Nausea/Vomiting Last Admin: 12/01/16 02:54 Dose: 1 mg Nicotine (Habitrol) 21 mg TRDERM DAILY [facility] Last Admin: 12/01/16 08:57 Dose: 21 mg Nicotine (Nicotrol) 10 mg INH ASDIRECTED PRN PRN Reason: nicotine craving Last Admin: 12/01/16 09:34 Dose: 10 mg Ondansetron HCl (Zofran Odt) 4 mg PO Q6H PRN PRN Reason: Nausea able to take PO Ondansetron HCl (Zofran) 4 mg IV Q6H PRN PRN Reason: Nausea/Vomiting Oxycodone HCl (Oxycodone) 5 mg PO Q4H PRN PRN Reason: Pain (moderate 4-6) Last Admin: 11/30/16 02:18 Dose: 5 mg Pantoprazole Sodium (Protonix) 40 mg PO BIDAC [facility] Last Admin: 12/01/16 07:31 Dose: 40 mg Discontinued Medications Sodium Chloride (Normal Saline) 1,000 mls @ 125 mls/hr IV ASDIRECTED [facility] Last Admin: 11/29/16 21:27 Dose: 125 mls/hr Insulin Human Regular 100 unit (/ Sodium Chloride) 101 mls @ 5.05 mls/hr IV .CONTINUOUS ANIL; 5 UNITS/HR PRN Reason: Protocol Insulin Human Regular 100 unit (/ Sodium Chloride) 101 mls @ 5.05 mls/hr IV TITRATE ANIL; 5 UNITS/HR PRN Reason: Protocol Last Titration: 11/30/16 06:49 Dose: 0 units/hr, 0 mls/hr Sodium Chloride (Normal Saline) 1,000 mls @ 999 mls/hr IV .BOLUS [facility] Last Admin: 11/30/16 00:05 Dose: 999 mls/hr Magnesium Sulfate 2 gm/ Premix 50 mls @ 25 mls/hr IV Q6H [facility] Stop: 12/01/16 00:59 Last Admin: 11/30/16 11:05 Dose: 25 mls/hr Magnesium Sulfate 2 gm/ Sodium (Chloride) 54 mls @ 27 mls/hr IV Q6H [facility] Stop: 12/01/16 00:59 Last Admin: 11/30/16 23:17 Dose: 27 mls/hr Insulin Detemir (Levemir) 10 unit SUBCUT ONETIME ONE Stop: 11/30/16 09:31 Last Admin: 11/30/16 10:15 Dose: 10 units Nicotine (Habitrol) 14 mg TRDERM DAILY [facility] Last Admin: 11/30/16 11:07 Dose: 14 mg Ondansetron HCl (Zofran) 4 mg IVPUSH ONETIME PRN PRN Reason: Nausea/Vomiting Last Admin: 11/29/16 21:27 Dose: 4 mg Pantoprazole Sodium (Protonix Iv) 40 mg IV Q12H [facility] Last Admin: 11/30/16 12:57 Dose: 40 mg *Q Meaningful Use (DIS) - VTE *Q VTE Criteria *Q: - Stroke *Q Stroke Criteria *Q: - AMI *Q AMI Criteria *Q:
== END 2016-12-01 10:25 | disposition home or self-care (01) | DRG 639 ==
LOC: JP.ED 20:14 → JP.ICU 23:28 → JP.MS 11-30 14:07
PROVIDERS: ADMIT Internal Medicine; ATTEND Internal Medicine
DX: E10.10 Type 1 diabetes mellitus with ketoacidosis without coma (principal); Z79.4 Long term (current) use of insulin; K52.9 Noninfective gastroenteritis and colitis, unspecified; F17.210 Nicotine dependence, cigarettes, uncomplicated; Z88.5 Allergy status to narcotic agent; F41.9 Anxiety disorder, unspecified; F32.9 Major depressive disorder, single episode, unspecified; Z87.440 Personal history of urinary (tract) infections; Z85.3 Personal history of malignant neoplasm of breast; Z85.41 Personal history of malignant neoplasm of cervix uteri; Z92.21 Personal history of antineoplastic chemotherapy
CPT/HCPCS: 36415; 71010; 71010-26; 80048; 80053; 81001; 82009; 82962; 83735; 84484; 84703; 85025; 85027; 87046; 87899; 89055; 93005; 96361; 96374; 99285-25; A9270-GY; C9113; J2060; J2405; J3475; J7030; J7040; J7050

== ENCOUNTER 2017-07-16 23:13 | Emergency (ER) | payer MEDICAID ==
[2017-07-16] MEDS ORDERED: Ondansetron 4 MG/2 ML SDV IVPUSH ONE (23:31)
[2017-07-16] MEDS ORDERED: Insulin Regular, Human 100 Units/ML 10 ML Vial IVPUSH ONE (23:31)
[2017-07-16] MEDS ORDERED: Sodium Chloride 0.9% 1,000 ML IV SCH (23:45)
[2017-07-17] MEDS ORDERED: Aluminum Hydroxide/Magnesium Hydroxide/Simethicone Susp 30 ML Cup PO ONE (00:09)
--- NOTE | 2017-07-17 00:13 | EDM.PDOC ---
ED HPI GENERAL MEDICAL PROBLEM - General Chief Complaint: Gastrointestinal Problem Stated Complaint: VOMITING Time Seen by Provider: 07/16/17 23:25 Source of Information: Reports: Patient History Limitations: Reports: No Limitations - History of Present Illness INITIAL COMMENTS - FREE TEXT/NARRATIVE: 46-year-old female who has type 1 diabetes since chemotherapy treatment for metastatic breast cancer has had 2 days of nausea and vomiting, hasn't taken any insulin today because she hasn't been able to eat anything or hold down any fluids. She later admitted she hadn't taken insulin the last 2 days because she "couldn't find it". She is now having abdominal cramps, chest pains, and is having typical symptoms of diabetic ketoacidosis. The last time she checked her glucose was this morning it was over 400. She has no fevers or chills, no diarrhea. Onset: Gradual (Over the past 2 days) Severity: Severe Associated Symptoms: Reports: Chest Pain, Headaches, Loss of Appetite, Malaise, Nausea/Vomiting, Weakness. Denies: Fever/Chills, Shortness of Breath chest Pain Score (Numeric/FACES): 5 - Related Data Allergies Allergy/AdvReac Type Severity Reaction Status Date / Time morphine AdvReac Confusion Verified 07/04/17 15:56 Home Meds: Home Meds Insulin Aspart [NovoLOG] 4 - 10 units SQ QID 08/22/16 [History] Insulin Glarg,Human.Rec.Analog [Lantus Solostar] 30 unit SUBCUT BEDTIME [History] Escitalopram [Lexapro] 10 mg PO DAILY #30 tab 12/01/16 [Rx] Past Medical History HEENT History: Reports: Impaired Vision Respiratory History: Reports: COPD Genitourinary History: Reports: UTI, Recurrent [employer] History: Reports: Musculoskeletal History: Reports: Fracture Other Musculoskeletal History: rib in chest Neurological History: Reports: Concussion, Head Trauma Psychiatric History: Reports: Anxiety, Depression Endocrine/Metabolic History: Reports: Diabetes, Type I Hematologic History: Reports: Other (See Below) Other Hematologic History: factor 5 Other Immunologic History: last chemo 2 years ago Oncologic (Cancer) History: Reports: Breast, Cervix Dermatologic History: Reports: Cellulitis, Other (See Below) Other Dermatologic History: recent staph infection on scalp - Past Surgical History Respiratory Surgical History: Reports: None GI Surgical History: Reports: Appendectomy, Cholecystectomy Female Surgical History: Reports: Hysterectomy Oncologic Surgical History: Reports: Mastectomy Social & Family History - Family History : Reports: Renal Disease/Insufficiency - Tobacco Use Smoking Status *Q: Current Every Day Smoker Years of Tobacco use: 30 Packs/Tins Daily: 0.5 Used Tobacco, but Quit: No Second Hand Smoke Exposure: No - Caffeine Use Caffeine Use: Reports: Coffee, Energy Drinks, Soda - Recreational Drug Use Recreational Drug Use: Yes Drug Use in Last 12 Months: Yes Recreational Drug Type: Reports: Marijuana/Hashish Recreational Drug Use Frequency: Daily ED ROS GENERAL - Review of Systems Review Of Systems: See Below Constitutional: Reports: Chills, Malaise, Weakness, Decreased Appetite. Denies : Fever HEENT: Reports: No Symptoms Cardiovascular: Reports: Chest Pain. Denies: Palpitations GI/Abdominal: Reports: Abdominal Pain, Nausea, Vomiting. Denies: Diarrhea : Reports: No Symptoms Skin: Reports: No Symptoms Psychiatric: Reports: No Symptoms ED EXAM, GENERAL - Physical Exam Exam: See Below Exam Limited By: No Limitations General Appearance: Alert, Moderate Distress Eye Exam: Bilateral Eye: EOMI (No jaundice) Throat/Mouth: Normal Inspection Head: Atraumatic Respiratory/Chest: No Respiratory Distress, Lungs Clear Cardiovascular: Regular Rate, Rhythm, Tachycardia GI/Abdominal: Tender (Diffusely uncomfortable to palpation, no distention) Extremities: No: Pedal Edema Neurological: Alert, Oriented, No Motor/Sensory Deficits Psychiatric: Anxious Skin Exam: Warm, Dry Course - Vital Signs Last Recorded V/S: Last Vital Signs Temp 96.8 F 07/17/17 00:51 Pulse 113 H 07/17/17 00:51 Resp 22 H 07/17/17 00:51 BP 131/69 07/17/17 00:51 Pulse Ox 99 07/17/17 00:51 - Orders/Labs/Meds Labs: Laboratory Tests 07/16/17 07/16/17 07/16/17 Range/Units 23:30 23:30 23:35 WBC 23.8 H (4.5-11.0) K/uL RBC 6.23 H (3.30-5.50) M/uL Hgb 18.5 H* D (12.0-15.0) g/dL Hct 52.2 H (36.0-48.0) % MCV 84 (80-98) fL MCH 30 (27-31) pg MCHC 35 (32-36) % Plt Count 485 H (150-400) K/uL Neut % (Auto) 86 H (36-66) % Lymph % (Auto) 6 L (24-44) % [place] % (Auto) 8 H (2-6) % Eos % (Auto) 0 L (2-4) % Baso % (Auto) 0 (0-1) % Puncture Site ABG pH (7.350-7.450) ABG pCO2 (35.0-42.0) mmHg ABG pO2 (75.0-100.0) mmHg ABG HCO3 (22.0-26.0) mmol/L ABG Total CO2 (21.0-25.0) mmol/L ABG O2 Saturation (95.0-98.0) % ABG O2 Content (15.0-23.0) %vol ABG Base Excess mm/L ABG Hemoglobin (12.0-16.0) g/dL ABG Oxyhemoglobin % ABG Carboxyhemoglobin (0.0-1.6) % ABG Methemoglobin % Hesham Test O2 Delivery Device Sodium 125 L (140-148) mmol/L Potassium 5.1 (3.6-5.2) mmol/L Chloride 84 L (100-108) mmol/L Carbon Dioxide 11 L (21-32) mmol/L Anion Gap 35.1 H (5.0-14.0) mmol/L BUN 29 H D (7-18) mg/dL Creatinine 1.9 H D (0.6-1.0) mg/dL Est Cr Clr Drug Dosing 29.45 mL/min Estimated GFR (MDRD) 29 L (>60) Glucose 559 H* (74-106) mg/dL Calcium 9.5 D (8.5-10.1) mg/dL Total Bilirubin 0.6 (0.2-1.0) mg/dL AST 12 L (15-37) U/L ALT 30 (12-78) U/L Alkaline Phosphatase 125 H (46-116) U/L Total Protein 8.1 (6.4-8.2) g/dL Albumin 3.9 (3.4-5.0) g/dL Globulin 4.2 H (2.3-3.5) g/dL Albumin/Globulin Ratio 0.9 L (1.2-2.2) Amylase 44 (25-115) U/L Lipase 159 (73-393) U/L Ketones Moderate H (NEGATIVE) 07/16/17 07/17/17 Range/Units 23:40 02:04 WBC (4.5-11.0) K/uL RBC (3.30-5.50) M/uL Hgb (12.0-15.0) g/dL Hct (36.0-48.0) % MCV (80-98) fL MCH (27-31) pg MCHC (32-36) % Plt Count (150-400) K/uL Neut % (Auto) (36-66) % Lymph % (Auto) (24-44) % [place] % (Auto) (2-6) % Eos % (Auto) (2-4) % Baso % (Auto) (0-1) % Puncture Site R radial ABG pH 7.229 L (7.350-7.450) ABG pCO2 15.7 L* (35.0-42.0) mmHg ABG pO2 116.0 H (75.0-100.0) mmHg ABG HCO3 6.3 L (22.0-26.0) mmol/L ABG Total CO2 5.6 L (21.0-25.0) mmol/L ABG O2 Saturation 97.6 (95.0-98.0) % ABG O2 Content 23.8 H (15.0-23.0) %vol ABG Base Excess -20.1 mm/L ABG Hemoglobin 17.6 H (12.0-16.0) g/dL ABG Oxyhemoglobin 96.1 % ABG Carboxyhemoglobin 0.8 (0.0-1.6) % ABG Methemoglobin 0.7 % Hesham Test Passed O2 Delivery Device Room air Sodium 132 L (140-148) mmol/L Potassium 3.8 (3.6-5.2) mmol/L Chloride 95 L (100-108) mmol/L Carbon Dioxide 14 L (21-32) mmol/L Anion Gap 26.8 H (5.0-14.0) mmol/L BUN 28 H (7-18) mg/dL Creatinine 1.4 H (0.6-1.0) mg/dL Est Cr Clr Drug Dosing 39.97 mL/min Estimated GFR (MDRD) 41 L (>60) Glucose 401 H* (74-106) mg/dL Calcium 7.5 L D (8.5-10.1) mg/dL Total Bilirubin (0.2-1.0) mg/dL AST (15-37) U/L ALT (12-78) U/L Alkaline Phosphatase (46-116) U/L Total Protein (6.4-8.2) g/dL Albumin (3.4-5.0) g/dL Globulin (2.3-3.5) g/dL Albumin/Globulin Ratio (1.2-2.2) Amylase (25-115) U/L Lipase (73-393) U/L Ketones (NEGATIVE) Meds: Medications Discontinued Medications Generic Name Dose Route Start Last Admin Trade Name Freq PRN Reason Stop Dose Admin Al Hydroxide/Mg Hydroxide 30 ml 07/17/17 00:09 07/17/17 00:24 Mag-Al Plus PO 07/17/17 00:10 30 ml ONETIME ONE Administration Sodium Chloride 1,000 mls @ 1,000 mls/hr 07/16/17 23:45 07/16/17 23:41 Normal Saline IV 1,000 mls/hr ASDIRECTED ANIL Administration Sodium Chloride 1,000 mls @ 999 mls/hr 07/17/17 00:32 07/17/17 00:47 Normal Saline IV 07/17/17 01:32 999 mls/hr ONETIME ONE Administration Insulin Detemir 20 unit 07/17/17 00:30 07/17/17 00:44 Levemir SUBCUT 07/17/17 00:31 20 units ONETIME ONE Administration Insulin Human Regular 12 unit 07/16/17 23:31 07/16/17 23:45 Novolin R IVPUSH 07/16/17 23:32 12 units ONETIME ONE Administration Protocol Ondansetron HCl 4 mg 07/16/17 23:31 07/16/17 23:43 Zofran IVPUSH 07/16/17 23:32 4 mg ONETIME ONE Administration - Re-Assessments/Exams Free Text/Narrative Re-Assessment/Exam: 07/17/17 00:12 An IV was started and the patient was bolused with normal saline, blood gases confirm ketoacidosis with a pH of 7.229 and a PCO2 of 15. Glucose was over 500, she was given 12 units of insulin IV and 4 mg of IV Zofran. Potassium is 5.1. 07/17/17 00:42 After the first liter of fluid and IV medications, the patient was resting quietly. A second bag of normal saline was given and she was given 20 units of long-acting insulin subcutaneously. A second set of electrolytes will be obtained at 2 AM. 07/17/17 02:25 After 2 L of IV fluids, an hour and a half of rest her glucose had dropped to 400. Creatinine improved as well as GFR, and anion gap fell from 35 to 27. I think she would still benefit from hospitalization but she insisted on going home as we had no beds available at this hospital and she refused to be transferred. She was discharged with 5 additional doses of Zofran, and encouraged to keep a close eye on her glucose levels and push fluids. She will return if she starts to worsen. Departure - Departure Time of Disposition: 02:30 Disposition: Home, Self-Care 01 Condition: Fair Clinical Impression: Diabetic ketoacidosis Qualifiers: Diabetes mellitus type: type 1 Diabetes mellitus complication detail: without coma Qualified Code(s): E10.10 - Type 1 diabetes mellitus with ketoacidosis without coma - Discharge Information Instructions: Diabetic Ketoacidosis Referrals: PCP,None [Primary Care Provider] - Forms: ED Department Discharge Care Plan Goals: Checked glucose levels every 3-4 hours, and treat with regular insulin as needed while pushing fluids. Use Zofran for nausea or vomiting if develops, and return to the emergency room if you are worsening despite treatment.
[2017-07-17] MEDS ORDERED: Insulin Detemir 100 Units/ML 3 ML Pen SUBCUT ONE (00:30)
[2017-07-17] MEDS ORDERED: Sodium Chloride 0.9% 1,000 ML IV ONE (00:32)
[2017-07-17 00:52] VITALS: BP 131/69
== END 2017-07-17 02:41 | disposition home or self-care (01) ==
LOC: JP.ED 23:13
DX: E10.10 Type 1 diabetes mellitus with ketoacidosis without coma (principal); J44.9 Chronic obstructive pulmonary disease, unspecified; F17.210 Nicotine dependence, cigarettes, uncomplicated; Z88.5 Allergy status to narcotic agent
CPT/HCPCS: 36415; 36600; 80048; 80053; 82009; 82150; 82803; 82962; 83690; 85025; 96361; 96374; 99284-25; A9270-GY; J2405; J7040

== ENCOUNTER 2017-10-30 16:00 | Emergency (ER) | payer MEDICAID ==
[2017-10-30] MEDS ORDERED: Sodium Chloride 0.9% 1,000 ML IV ONE (16:22)
[2017-10-30] MEDS ORDERED: Insulin Aspart 100 Units/ML 3 ML Pen SUBCUT ONE ×2 (16:23→16:52)
[2017-10-30] MEDS ORDERED: Atropine/Diphenoxylate 0.025-2.5 MG Tab PO ONE (16:28)
--- NOTE | 2017-10-30 16:39 | EDM.PDOC ---
ED HPI GENERAL MEDICAL PROBLEM - General Chief Complaint: General Stated Complaint: HIGH BLOOD SUGAR AND POTASSIUM LEVELS Time Seen by Provider: 10/30/17 16:34 Source of Information: Reports: Patient, Old Records, RN History Limitations: Reports: No Limitations - History of Present Illness INITIAL COMMENTS - FREE TEXT/NARRATIVE: 47 yo female with IDDM and a hx of medical non-compliance was seen in [place] today for follow up on a scalp surgery. They jim some blood before sending her on her way home only to find later that she K was 6.0 and her BS was over 600. She admits again today as last time she was seen here for this same problem that she has not been taking her insulin consistently lately. Reports in the ER that after [place] called her with her high BS number that she did then take her long and short acting insulins. Has had some recent blurred vision, frequent urination, and dizziness with standing. 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) - Related Data Allergies Allergy/AdvReac Type Severity Reaction Status Date / Time morphine AdvReac Confusion Verified 10/30/17 16:29 Home Meds: Home Meds Insulin Glarg,Human.Rec.Analog [Lantus Solostar] 40 unit SUBCUT DAILY 08/22/16 [ History] Escitalopram [Lexapro] 10 mg PO DAILY #30 tab 12/01/16 [Rx] Insulin Lispro [HumaLOG] 8 unit SQ TIDMEALS 10/30/17 [History] LORazepam [Ativan] 1 mg PO Q6H 10/30/17 [History] Letrozole [Femara] 2.5 mg PO DAILY 10/30/17 [History] Mineral Oil/I-Prop Myr/Water [Minerin] 473 ml TP BID 10/30/17 [History] Venlafaxine [Effexor XR 24 Hr] 37.5 mg PO DAILY 10/30/17 [History] atorvaSTATin [Lipitor] 40 mg PO BEDTIME 10/30/17 [History] Past Medical History HEENT History: Reports: Impaired Vision Respiratory History: Reports: COPD Genitourinary History: Reports: UTI, Recurrent 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 Osteomyalitis Neurological History: Reports: Concussion, Head Trauma Psychiatric History: Reports: Anxiety, Depression Endocrine/Metabolic History: Reports: Diabetes, Type I Hematologic History: Reports: Other (See Below) Other Hematologic History: factor 5 Other Immunologic History: last chemo 2 years ago Oncologic (Cancer) History: Reports: Breast, Cervix Dermatologic History: Reports: Cellulitis, Other (See Below) Other Dermatologic History: recent staph infection on scalp - Past Surgical History GI Surgical History: Reports: Appendectomy, Cholecystectomy Female Surgical History: Reports: Hysterectomy Oncologic Surgical History: Reports: Mastectomy Social & Family History - Family History : Reports: Renal Disease/Insufficiency - Tobacco Use Smoking Status *Q: Never Smoker - Caffeine Use Caffeine Use: Reports: Coffee, Energy Drinks, Soda - Recreational Drug Use Recreational Drug Use: Yes Drug Use in Last 12 Months: Yes Recreational Drug Type: Reports: Marijuana/Hashish ED ROS GENERAL - Review of Systems Review Of Systems: See Below Constitutional: Reports: Malaise HEENT: Reports: No Symptoms Respiratory: Reports: No Symptoms Cardiovascular: Reports: Lightheadedness Endocrine: Reports: High Glucose, Polyuria GI/Abdominal: Reports: Diarrhea : Reports: Frequency. Denies: Dysuria, Pain, Urgency Musculoskeletal: Reports: No Symptoms Skin: Reports: No Symptoms Neurological: Reports: No Symptoms Psychiatric: Reports: No Symptoms ED EXAM, GENERAL - Physical Exam Exam: See Below Exam Limited By: No Limitations General Appearance: Alert, WD/WN, No Apparent Distress Eye Exam: Bilateral Eye: Normal Inspection Ears: Normal External Exam, Normal Canal, Hearing Grossly Normal Ear Exam: Bilateral Ear: Auricle Normal, Canal Normal Nose: Normal Inspection, Normal Mucosa, No Blood Throat/Mouth: Normal Inspection, Normal Lips, Normal Oropharynx, Normal Voice, No Airway Compromise Head: Atraumatic, Normocephalic Neck: Normal Inspection, Supple, Non-Tender Respiratory/Chest: No Respiratory Distress, Lungs Clear, Normal Breath Sounds, No Accessory Muscle Use Cardiovascular: Regular Rate, Rhythm, No Edema GI/Abdominal: Normal Bowel Sounds, Soft, Non-Tender, No Distention Back Exam: Normal Inspection. No: CVA Tenderness (R), Paraspinal Tenderness Extremities: Normal Inspection, Normal Range of Motion, Non-Tender, No Pedal Edema Neurological: Alert, Oriented, CN II-XII Intact, Normal Cognition, No Motor/ Sensory Deficits Psychiatric: Normal Affect, Normal Mood Skin Exam: Warm, Dry, Intact, Normal Color, No Rash Lymphatic: No Adenopathy Course - Vital Signs Text/Narrative:: discussed UA results with patient, not symptomatic, has diarrhea already so will hold off on tx until the culture is available. Last Recorded V/S: Last Vital Signs Temp 35.5 C 10/30/17 16:16 Pulse 114 H 10/30/17 16:16 Resp 16 10/30/17 16:16 BP 142/96 H 10/30/17 16:16 Pulse Ox 98 10/30/17 16:16 - Orders/Labs/Meds Orders: Active Orders 24 hr Category Date Time Status CULTURE URINE [RM] Stat Lab 10/30/17 17:00 Received DRUG SCREEN, URINE [URCHEM] Stat Lab 10/30/17 16:49 Ordered UA W/MICROSCOPIC [URIN] Stat Lab 10/30/17 16:49 Ordered Labs: Laboratory Tests 10/30/17 10/30/17 Range/Units 16:49 16:49 Urine Color Yellow Urine Appearance Slightly cloudy Urine pH 6.0 (4.5-8.0) Ur Specific [place] 1.015 (1.008-1.030) Urine Protein Negative (NEGATIVE) mg/dL Urine Glucose (UA) 1000 H (NEGATIVE) mg/dL Urine Ketones 50 H (NEGATIVE) mg/dL Urine Occult Blood Negative (NEGATIVE) Urine Nitrite Negative (NEGATIVE) Urine Bilirubin Negative (NEGATIVE) Urine Urobilinogen Normal (NORMAL) mg/dL Ur Leukocyte Esterase Large (NEGATIVE) Urine RBC Not seen (0-5) Urine WBC 20-30 H (0-5) Ur Epithelial Cells Few Amorphous Sediment Not seen Urine Bacteria Moderate Urine Mucus Not seen Urine Opiates Screen Negative (NEGATIVE) Ur Oxycodone Screen Negative (NEGATIVE) Urine Methadone Screen Negative (NEGATIVE) Ur Propoxyphene Screen Negative (NEGATIVE) Ur Barbiturates Screen Negative (NEGATIVE) Ur Tricyclics Screen Negative (NEGATIVE) Ur Phencyclidine Scrn Negative (NEGATIVE) Ur Amphetamine Screen Negative (NEGATIVE) U Methamphetamines Scrn Negative (NEGATIVE) Urine MDMA Screen Negative (NEGATIVE) U Benzodiazepines Scrn Presumptive positive H (NEGATIVE) U Cocaine Metab Screen Negative (NEGATIVE) U Marijuana (THC) Screen Presumptive positive H (NEGATIVE) Meds: Medications Discontinued Medications Generic Name Dose Route Start Last Admin Trade Name Sandrine PRN Reason Stop Dose Admin Diphenoxylate HCl/Atropine 1 tab 10/30/17 16:28 10/30/17 16:39 Lomotil 0.025-2.5 Mg PO 10/30/17 16:29 1 tab ONETIME ONE Administration Sodium Chloride 1,000 mls @ 1,000 mls/hr 10/30/17 16:22 10/30/17 16:39 Normal Saline IV 10/30/17 17:21 1,000 mls/hr .BOLUS ONE Administration Insulin Aspart 20 unit 10/30/17 16:23 10/30/17 16:53 Novolog SUBCUT 10/30/17 16:24 Not Given ONETIME ONE Insulin Aspart 10 unit 10/30/17 16:52 10/30/17 16:54 Novolog SUBCUT 10/30/17 16:53 10 units ONETIME ONE Administration Departure - Departure Time of Disposition: 17:55 Disposition: Home, Self-Care 01 Condition: Fair Clinical Impression: High glucose, Medical non-compliance Diarrhea Qualifiers: Diarrhea type: unspecified type Qualified Code(s): R19.7 - Diarrhea, unspecified - Discharge Information *PRESCRIPTION DRUG MONITORING PROGRAM REVIEWED*: Not Applicable *COPY OF PRESCRIPTION DRUG MONITORING REPORT IN PATIENT PATRICK: Not Applicable Referrals: PCP,None [Primary Care Provider] - Forms: ED Department Discharge Additional Instructions: Watch your blood sugars more closely and treat as appropriate. Check with your doctor regarding your urine culture if you have not heard from the hospital by 72 hrs. Check with your doctor tomorrow regarding your C.diff test result. If needed take Peptobismol for your diarrhea sx's. - My Orders Last 24 Hours: My Active Orders 10/30/17 16:49 DRUG SCREEN, URINE [URCHEM] Stat UA W/MICROSCOPIC [URIN] Stat 10/30/17 17:00 CULTURE URINE [RM] Stat - Assessment/Plan Last 24 Hours: My Active Orders 10/30/17 16:49 DRUG SCREEN, URINE [URCHEM] Stat UA W/MICROSCOPIC [URIN] Stat 10/30/17 17:00 CULTURE URINE [RM] Stat
[2017-10-30 17:52] VITALS: BP 133/88
== END 2017-10-30 17:59 | disposition home or self-care (01) ==
LOC: JP.ED 16:00
DX: E10.65 Type 1 diabetes mellitus with hyperglycemia (principal); R19.7 Diarrhea, unspecified; J44.9 Chronic obstructive pulmonary disease, unspecified; F41.9 Anxiety disorder, unspecified; F32.9 Major depressive disorder, single episode, unspecified; Z79.899 Other long term (current) drug therapy; Z91.14 Patient's other noncompliance with medication regimen; Z88.5 Allergy status to narcotic agent
CPT/HCPCS: 80305; 81001; 82962; 87086; 96360; 99285; A9270; J7030

== ENCOUNTER 2018-07-27 13:44 | Emergency (ER) | payer MEDICAID ==
[2018-07-27 14:12] VITALS: BP 129/88
[2018-07-27] MEDS ORDERED: Sodium Chloride 0.9% 1,000 ML IV SCH (14:45)
--- NOTE | 2018-07-27 14:45 | EDM.PDOC ---
ED HPI GENERAL MEDICAL PROBLEM - General Chief Complaint: Respiratory Problem Stated Complaint: CHEST CONGESTION Time Seen by Provider: 07/27/18 14:10 Source of Information: Reports: Patient History Limitations: Reports: No Limitations - History of Present Illness INITIAL COMMENTS - FREE TEXT/NARRATIVE: 47 yo female presents with cough and fever. symptoms have been present for 7 days. productive cough. decreased appetite. fatigue. Chest Pain Score (Numeric/FACES): 5 - Related Data Allergies Allergy/AdvReac Type Severity Reaction Status Date / Time morphine AdvReac Confusion Verified 10/30/17 16:29 Home Meds: Home Meds Insulin Glarg,Human.Rec.Analog [Lantus Solostar] 40 unit SUBCUT DAILY 08/22/16 [ History] Escitalopram [Lexapro] 10 mg PO DAILY #30 tab 12/01/16 [Rx] Insulin Lispro [HumaLOG] 8 unit SQ TIDMEALS 10/30/17 [History] LORazepam [Ativan] 1 mg PO Q6H 10/30/17 [History] Letrozole [Femara] 2.5 mg PO DAILY 10/30/17 [History] Mineral Oil/I-Prop Myr/Water [Minerin] 473 ml TP BID 10/30/17 [History] Venlafaxine [Effexor XR 24 Hr] 37.5 mg PO DAILY 10/30/17 [History] atorvaSTATin [Lipitor] 40 mg PO BEDTIME 10/30/17 [History] Past Medical History HEENT History: Reports: Impaired Vision Respiratory History: Reports: COPD Genitourinary History: Reports: UTI, Recurrent 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 Osteomyalitis Neurological History: Reports: Concussion, Head Trauma Psychiatric History: Reports: Anxiety, Depression Endocrine/Metabolic History: Reports: Diabetes, Type I Hematologic History: Reports: Other (See Below) Other Hematologic History: factor 5 Other Immunologic History: last chemo 2 years ago Oncologic (Cancer) History: Reports: Breast, Cervix Dermatologic History: Reports: Cellulitis, Other (See Below) Other Dermatologic History: recent staph infection on scalp - Infectious Disease History Infectious Disease History: Reports: Chicken Pox - Past Surgical History GI Surgical History: Reports: Appendectomy, Cholecystectomy Female Surgical History: Reports: Hysterectomy Oncologic Surgical History: Reports: Mastectomy Social & Family History - Family History : Reports: Renal Disease/Insufficiency - Tobacco Use Smoking Status *Q: Current Every Day Smoker Years of Tobacco use: 30 Packs/Tins Daily: 0.5 - Caffeine Use Caffeine Use: Reports: Coffee, Soda, Tea ED ROS GENERAL - Review of Systems Review Of Systems: See Below Constitutional: Reports: Fever, Chills, Malaise HEENT: Reports: Sinus Problem. Denies: Throat Pain Respiratory: Reports: Shortness of Breath, Wheezing, Cough Cardiovascular: Denies: Chest Pain GI/Abdominal: Denies: Abdominal Pain Skin: Denies: Rash Neurological: Denies: Confusion, Dizziness ED EXAM, GENERAL - Physical Exam Exam: See Below Exam Limited By: No Limitations General Appearance: Alert, WD/WN, No Apparent Distress Nose: Normal Mucosa, Clear Rhinorrhea Throat/Mouth: Normal Inspection Head: Atraumatic, Normocephalic Neck: Supple, Non-Tender, Lymphadenopathy (R), Lymphadenopathy (L) Respiratory/Chest: No Respiratory Distress, Rhonchi. No: Crackles Course - Vital Signs Last Recorded V/S: Last Vital Signs Temp 37.2 C 07/27/18 14:09 Pulse 113 H 07/27/18 14:09 Resp 18 07/27/18 14:09 BP 129/88 07/27/18 14:09 Pulse Ox 98 07/27/18 14:09 - Orders/Labs/Meds Orders: Active Orders 24 hr Category Date Time Status Sodium Chloride 0.9% [Normal Saline] 1,000 ml Med 07/27/18 14:45 Active IV ASDIRECTED Medication Orders Sodium Chloride (Normal Saline) 1,000 mls @ 999 mls/hr IV ASDIRECTED ANIL Last Admin: 07/27/18 15:04 Dose: 999 mls/hr Labs: Laboratory Tests 07/27/18 Range/Units 14:31 WBC 11.3 H (4.5-11.0) K/uL RBC 5.26 (3.30-5.50) M/uL Hgb 13.9 D (12.0-15.0) g/dL Hct 42.2 (36.0-48.0) % MCV 80 (80-98) fL MCH 26 L (27-31) pg MCHC 33 (32-36) % Plt Count 498 H (150-400) K/uL Neut % (Auto) 80 H (36-66) % Lymph % (Auto) 12 L (24-44) % [place] % (Auto) 7 H (2-6) % Eos % (Auto) 1 L (2-4) % Baso % (Auto) 0 (0-1) % Meds: Medications Generic Name Dose Route Start Last Admin Trade Name Freq PRN Reason Stop Dose Admin Sodium Chloride 1,000 mls @ 999 mls/hr 07/27/18 14:45 07/27/18 15:04 Normal Saline IV 999 mls/hr ASDIRECTED ANIL Administration Discontinued Medications Generic Name Dose Route Start Last Admin Trade Name Freq PRN Reason Stop Dose Admin Acetaminophen 1,000 mg 07/27/18 14:46 07/27/18 15:03 Tylenol Extra Strength PO 07/27/18 14:47 1,000 mg ONETIME ONE Administration Amoxicillin/Clavulanate Potassium 1 tab 07/27/18 14:47 07/27/18 15:03 Augmentin 875 Mg/125 Mg PO 07/27/18 14:48 1 tab ONETIME ONE Administration - Re-Assessments/Exams Free Text/Narrative Re-Assessment/Exam: 07/27/18 15:40 tylenol and IV hydration with first dose of antibiotics. WBC slightly elevated. Chest X-ray stable. Departure - Departure Time of Disposition: 15:41 Disposition: Home, Self-Care 01 Condition: Good Clinical Impression: Acute bronchiolitis Qualifiers: Bronchiolitis organism: unspecified organism Qualified Code(s): J21.9 - Acute bronchiolitis, unspecified Sinusitis, acute Qualifiers: Sinusitis location: unspecified location Recurrence: non-recurrent Qualified Code(s): J01.90 - Acute sinusitis, unspecified - Discharge Information *PRESCRIPTION DRUG MONITORING PROGRAM REVIEWED*: No *COPY OF PRESCRIPTION DRUG MONITORING REPORT IN PATIENT PATRICK: No Referrals: Jonathon Valdes NP [Primary Care Provider] - Forms: ED Department Discharge Additional Instructions: Augmentin 875 twice daily for 10 days tylenol 1000 mg every 8 hours for fever relief increase fluid intake with goal 1 liter per day - My Orders Last 24 Hours: My Active Orders 07/27/18 14:45 Sodium Chloride 0.9% [Normal Saline] 1,000 ml IV ASDIRECTED - Assessment/Plan Last 24 Hours: My Active Orders 07/27/18 14:45 Sodium Chloride 0.9% [Normal Saline] 1,000 ml IV ASDIRECTED
[2018-07-27] MEDS ORDERED: Acetaminophen 500 MG Tab PO ONE (14:46)
[2018-07-27] MEDS ORDERED: Amoxicillin/Clavulanate K 875-125 MG Tab PO ONE (14:47)
--- NOTE | 2018-07-27 15:21 | CRLCR ---
INDICATION: Cough. TECHNIQUE: PA and lateral chest x-ray. COMPARISON: Chest x-ray 11/29/2016. FINDINGS: Heart size normal. Mild increased soft tissue prominence along the upper aspect of the left heart and mediastinum is stable and could be related to residual thymic tissue or prominence of the main pulmonary artery in combination with normal variant bulbous appearance of the heart. Surgical clips in the left upper chest wall. No focal infiltrate or consolidation either lung. Surgical clips abdomen. Bronchovascular markings in the right mid and lower lung medially are increased but stable. Chest otherwise negative. Dictated by Chalino Andrews MD @ Jul 27 2018 3:19PM Signed by Dr. Chalino Andrews @ Jul 27 2018 3:19PM
== END 2018-07-27 16:25 | disposition home or self-care (01) ==
LOC: JP.ED 13:44
DX: J21.9 Acute bronchiolitis, unspecified (principal); J01.90 Acute sinusitis, unspecified; F41.9 Anxiety disorder, unspecified; E10.9 Type 1 diabetes mellitus without complications; F32.9 Major depressive disorder, single episode, unspecified; F17.210 Nicotine dependence, cigarettes, uncomplicated; Z88.5 Allergy status to narcotic agent; Z79.4 Long term (current) use of insulin; Z79.899 Other long term (current) drug therapy; Z90.49 Acquired absence of other specified parts of digestive tract; Z90.710 Acquired absence of both cervix and uterus
CPT/HCPCS: 36415; 71046; 85025; 96360; 99285; A9270; J7030

== ENCOUNTER 2019-05-07 21:11 | Inpatient (IN) | payer MEDICAID ==
[2019-05-07] MEDS ORDERED: Metoclopramide 10 MG/2 ML SDV IVPUSH ONE (21:26)
[2019-05-07] MEDS ORDERED: Lactated Ringers 1,000 ML IV ONE (21:27)
[2019-05-07] MEDS ORDERED: Insulin Regular, Human 100 Units/ML 3 ML Vial SUBCUT ONE (21:46)
--- NOTE | 2019-05-07 21:59 | EDM.PDOC ---
ED HPI GENERAL MEDICAL PROBLEM - General Chief Complaint: Gastrointestinal Problem Stated Complaint: SICK Time Seen by Provider: 05/07/19 21:40 Source of Information: Reports: Patient, Old Records, RN History Limitations: Reports: No Limitations - History of Present Illness INITIAL COMMENTS - FREE TEXT/NARRATIVE: 48 yo female diabetic on insulin presents with about 5 days of vomiting. When she started getting sick she stopped checking her blood sugars. Ran out of her long acting insulin a couple days ago and never called for a refill. Thinks her emesis material has been dark. Fell on the stairs yesterday and injured her low back. Lives with her parents. Has a pHx of medical noncompliance. 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) Middle Back Pain Score (Numeric/FACES): 8 - Related Data Allergies Allergy/AdvReac Type Severity Reaction Status Date / Time morphine AdvReac Confusion Verified 10/30/17 16:29 Home Meds: Home Meds Insulin Glarg,Human.Rec.Analog [Lantus Solostar] 40 unit SUBCUT DAILY 08/22/16 [ History] Insulin Lispro [HumaLOG] 8 unit SQ TIDMEALS 10/30/17 [History] Past Medical History HEENT History: Reports: Impaired Vision Respiratory History: Reports: COPD Genitourinary History: Reports: UTI, Recurrent 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 Osteomyalitis Neurological History: Reports: Concussion, Head Trauma Psychiatric History: Reports: Anxiety, Depression Endocrine/Metabolic History: Reports: Diabetes, Type I Hematologic History: Reports: Other (See Below) Other Hematologic History: factor 5 Other Immunologic History: last chemo 2 years ago Oncologic (Cancer) History: Reports: Breast, Cervix Dermatologic History: Reports: Cellulitis, Other (See Below) Other Dermatologic History: recent staph infection on scalp - Infectious Disease History Infectious Disease History: Reports: Chicken Pox - Past Surgical History GI Surgical History: Reports: Appendectomy, Cholecystectomy Female Surgical History: Reports: Hysterectomy, Mastectomy Oncologic Surgical History: Reports: Mastectomy Social & Family History - Family History : Reports: Renal Disease/Insufficiency - Tobacco Use Smoking Status *Q: Current Every Day Smoker Years of Tobacco use: 30 Packs/Tins Daily: 1 Used Tobacco, but Quit: No Second Hand Smoke Exposure: Yes - Caffeine Use Caffeine Use: Reports: Coffee, Energy Drinks, Soda, Tea - Recreational Drug Use Recreational Drug Use: Yes Recreational Drug Type: Reports: Marijuana/Hashish, Methamphetamine Recreational Drug Use Frequency: Weekly ED ROS GENERAL - Review of Systems Review Of Systems: See Below Constitutional: Reports: No Symptoms HEENT: Reports: Other (mouth feels dry) Respiratory: Reports: No Symptoms Cardiovascular: Reports: No Symptoms Endocrine: Reports: High Glucose GI/Abdominal: Reports: Hematemesis (possibly), Nausea, Vomiting. Denies: Abdominal Pain, Black Stool, Bloody Stool, Constipation, Diarrhea, Distension, Flatus, Hematochezia, Melena : Reports: No Symptoms Musculoskeletal: Reports: Back Pain (low) Skin: Reports: Other (scalp skin condition) Neurological: Reports: No Symptoms Psychiatric: Reports: No Symptoms ED EXAM, GI/ABD - Physical Exam Exam: See Below Exam Limited By: No Limitations General Appearance: Alert, WD/WN, Mild Distress, Thin Eyes: Bilateral: Normal Appearance Ears: Normal External Exam, Normal Canal, Hearing Grossly Normal, Normal TMs Nose: Normal Inspection, No Blood Throat/Mouth: Normal Oropharynx, Normal Voice, No Airway Compromise, Other (dry oral mucosa) Head: Atraumatic, Normocephalic Neck: Normal Inspection Respiratory/Chest: No Respiratory Distress, Lungs Clear, Normal Breath Sounds, No Accessory Muscle Use Cardiovascular: No Edema, Tachycardia GI/Abdominal Exam: Normal Bowel Sounds, Soft, Non-Tender, No Distention Back Exam: Normal Inspection. No: CVA Tenderness (R), CVA Tenderness (L) Extremities: Normal Inspection, Normal Range of Motion, Non-Tender, No Pedal Edema Neurological: Alert, Oriented, CN II-XII Intact, Normal Cognition, No Motor/ Sensory Deficits Psychiatric: Normal Affect, Normal Mood Skin Exam: Warm, Dry, Intact, Normal Color, No Rash Course - Vital Signs Text/Narrative:: Dr. Smumers called @ [id number], will see in ER. Last Recorded V/S: Last Vital Signs Temp 37.3 C 05/07/19 21:36 Pulse 95 05/07/19 22:21 Resp 19 05/07/19 22:21 BP 137/88 05/07/19 22:21 Pulse Ox 96 05/07/19 21:36 - Orders/Labs/Meds Orders: Active Orders 24 hr Category Date Time Status DRUG SCREEN, URINE [URCHEM] Stat Lab 05/07/19 22:03 Ordered KETONES,BLOOD [CHEM] Stat Lab 05/07/19 22:32 Ordered LACTIC ACID [CHEM] Stat Lab 05/07/19 22:32 Ordered UA W/MICROSCOPIC [URIN] Stat Lab 05/07/19 21:26 Ordered Labs: Laboratory Tests 05/07/19 05/07/19 05/07/19 Range/Units 21:20 21:20 21:57 WBC 12.2 H (4.5-11.0) K/uL RBC 6.09 H (3.30-5.50) M/uL Hgb 15.7 H (12.0-15.0) g/dL Hct 48.9 H (36.0-48.0) % MCV 80 (80-98) fL MCH 26 L (27-31) pg MCHC 32 (32-36) % Plt Count 408 H (150-400) K/uL VBG pH 7.131 L (7.350-7.450) Sodium 128 L (140-148) mmol/L Potassium 4.7 (3.6-5.2) mmol/L Chloride 90 L (100-108) mmol/L Carbon Dioxide 9 L (21-32) mmol/L Anion Gap 33.7 H (5.0-14.0) mmol/L BUN 21 H (7-18) mg/dL Creatinine 1.3 H (0.6-1.0) mg/dL Est Cr Clr Drug Dosing 38.31 mL/min Estimated GFR (MDRD) 44 L (>60) Glucose 499 H* (74-106) mg/dL Calcium 9.1 D (8.5-10.1) mg/dL Magnesium (1.8-2.4) mg/dL 05/07/19 Range/Units 21:57 WBC (4.5-11.0) K/uL RBC (3.30-5.50) M/uL Hgb (12.0-15.0) g/dL Hct (36.0-48.0) % MCV (80-98) fL MCH (27-31) pg MCHC (32-36) % Plt Count (150-400) K/uL VBG pH (7.350-7.450) Sodium (140-148) mmol/L Potassium (3.6-5.2) mmol/L Chloride (100-108) mmol/L Carbon Dioxide (21-32) mmol/L Anion Gap (5.0-14.0) mmol/L BUN (7-18) mg/dL Creatinine (0.6-1.0) mg/dL Est Cr Clr Drug Dosing mL/min Estimated GFR (MDRD) (>60) Glucose (74-106) mg/dL Calcium (8.5-10.1) mg/dL Magnesium 1.8 (1.8-2.4) mg/dL Meds: Medications Discontinued Medications Generic Name Dose Route Start Last Admin Trade Name Freq PRN Reason Stop Dose Admin Acetaminophen 650 mg 05/07/19 22:35 Tylenol PO 05/07/19 22:36 NOW ONE Lactated Ringer's 1,000 mls @ 1,000 mls/hr 05/07/19 21:27 05/07/19 21:48 Ringers, Lactated IV 05/07/19 22:26 1,000 mls/hr BOLUS ONE Administration Insulin Human Regular 20 unit 05/07/19 21:46 05/07/19 21:53 Humulin R SUBCUT 05/07/19 21:47 20 units ONETIME ONE Administration Metoclopramide HCl 10 mg 05/07/19 21:26 05/07/19 21:49 Reglan IVPUSH 05/07/19 21:27 10 mg ONETIME ONE Administration - Radiology Interpretation Free Text/Narrative:: Lumbar spine X-ray- IMPRESSION: No acute fracture or subluxation. Dictated by Beth Awan MD @ May 07 2019 10:27PM Departure - Departure Time of Disposition: 23:00 Disposition: Admitted As Inpatient 67 Condition: Poor Clinical Impression: Hyperglycemia, Dehydration DKA (diabetic ketoacidoses) Qualifiers: Diabetes mellitus type: type 1 Diabetes mellitus complication detail: without coma Qualified Code(s): E10.10 - Type 1 diabetes mellitus with ketoacidosis without coma Low back pain Qualifiers: Chronicity: acute Back pain laterality: midline Sciatica presence: without sciatica Qualified Code(s): M54.5 - Low back pain - Discharge Information *PRESCRIPTION DRUG MONITORING PROGRAM REVIEWED*: Not Applicable *COPY OF PRESCRIPTION DRUG MONITORING REPORT IN PATIENT PATRICK: Not Applicable Referrals: PCP,None [Primary Care Provider] - Forms: ED Department Discharge Sepsis Event Note - Evaluation Sepsis Screening Result: No Definite Risk - Focused Exam Vital Signs: Vital Signs Temp Pulse Resp BP Pulse Ox 05/07/19 22:21 95 19 137/88 05/07/19 21:56 99 21 H 133/86 05/07/19 21:36 37.3 C 108 H 20 125/85 96 05/07/19 21:22 37.3 C 108 H 20 125/85 96 Date Exam was Performed: 05/07/19 Time Exam was Performed: 22:46 - My Orders Last 24 Hours: My Active Orders 05/07/19 21:26 UA W/MICROSCOPIC [URIN] Stat 05/07/19 22:03 DRUG SCREEN, URINE [URCHEM] Stat 05/07/19 22:32 KETONES,BLOOD [CHEM] Stat LACTIC ACID [CHEM] Stat - Assessment/Plan Last 24 Hours: My Active Orders 05/07/19 21:26 UA W/MICROSCOPIC [URIN] Stat 05/07/19 22:03 DRUG SCREEN, URINE [URCHEM] Stat 05/07/19 22:32 KETONES,BLOOD [CHEM] Stat LACTIC ACID [CHEM] Stat
--- NOTE | 2019-05-07 22:28 | CRLCR ---
INDICATION: Fall TECHNIQUE: Lumbar spine 3 view. COMPARISON: None FINDINGS: Bones: Alignment is normal. No fractures or significant bone lesions. Joints: Mild multilevel degenerative disc and facet changes. Soft tissues: Surgical clips in the right upper quadrant. IMPRESSION: No acute fracture or subluxation. Dictated by Beth Awan MD @ May 07 2019 10:27PM Signed by Dr. Beth Awan @ May 07 2019 10:27PM
[2019-05-07] MEDS ORDERED: Acetaminophen 325 MG Tab PO ONE (22:35)
[2019-05-07] MEDS ORDERED: Sodium Chloride 0.9% 2,000 ML IV PRN (23:30)
[2019-05-07] MEDS ORDERED: Potassium Chloride 20 MEQ in Premix Bag 1 BAG IV ONE (23:30)
[2019-05-07] MEDS ORDERED: Potassium Chloride 10% 20 MEQ/15 ML Soln 15 ML UD Cup PO PRN ×3 (23:30)
[2019-05-07] MEDS ORDERED: Potassium Chloride 20 MEQ in Premix Bag 1 BAG IV PRN ×4 (23:30)
[2019-05-07] MEDS ORDERED: 50% Dextrose in Water 50 ML Syringe IVPUSH PRN (23:30)
[2019-05-07] MEDS ORDERED: Magnesium Sulfate/Water 50 ML IV PRN (23:30)
[2019-05-07] MEDS ORDERED: Sodium Chloride 0.9% 10 ML Syringe FLUSH PRN (23:30)
[2019-05-07] MEDS ORDERED: Sodium Phosphate 60 MMOLE in Sodium Chloride 0.9% 250 ML IV PRN (23:30)
[2019-05-07] MEDS ORDERED: Dextrose 5%-0.45% NaCl 1,000 ML IV PRN (23:30)
--- NOTE | 2019-05-07 23:32 | PCM.HP.2 ---
H&P History of Present Illness - General Date of Service: 05/07/19 Admit Problem/Dx: Admission Diagnosis/Problem Admission Diagnosis/Problem Ketoacidosis Source of Information: Old Records, Provider, RN Notes Reviewed. No: Patient History Limitations: Reports: Uncooperative - History of Present Illness Initial Comments - Free Text/Narative: Ms. Thomas is a 48-year-old woman who was admitted through the emergency department with nausea, vomiting, and weakness secondary to diabetic ketoacidosis. She was uncooperative at the time that I saw her and would not answer questions concerning her recent symptoms or review of systems. History from Dr. Brooks as well as emergency department staff indicate that she ported 4 to 5 days of nausea and vomiting. She had stopped checking her glucose levels and has not been taking insulin over the past 2 days. She apparently fell 2 days ago and injured her back, x-rays were obtained in the emergency department and showed no evidence of fracture, radiologic review is pending. Longstanding history of type 1 diabetes mellitus with at least 1 previous episode of diabetic ketoacidosis. 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 Osteomyalitis Neurological History: Reports: Concussion, Head Trauma Psychiatric History: Reports: Anxiety, Depression Endocrine/Metabolic History: Reports: Diabetes, Type I Hematologic History: Reports: Other (See Below) Other Hematologic History: factor 5 Other Immunologic History: last chemo 2 years ago Oncologic (Cancer) History: Reports: Breast, Cervix Dermatologic History: Reports: Cellulitis, Other (See Below) Other Dermatologic History: recent staph infection on scalp - Infectious Disease History Infectious Disease History: Reports: Chicken Pox - Past Surgical History GI Surgical History: Reports: Appendectomy, Cholecystectomy Female Surgical History: Reports: Hysterectomy, Mastectomy Oncologic Surgical History: Reports: Mastectomy Social & Family History - Family History : Reports: Renal Disease/Insufficiency - Tobacco Use Smoking Status *Q: Current Every Day Smoker Years of Tobacco use: 30 Packs/Tins Daily: 1 Used Tobacco, but Quit: No Second Hand Smoke Exposure: Yes - Caffeine Use Caffeine Use: Reports: Coffee, Energy Drinks, Soda, Tea - Recreational Drug Use Recreational Drug Use: Yes Recreational Drug Type: Reports: Marijuana/Hashish, Methamphetamine Recreational Drug Use Frequency: Weekly H&P Review of Systems - Review of Systems: Review Of Systems: See Below General: Reports: ROS unobtainable (Uncooperative) Exam - Exam Exam: See Below - Vital Signs Vital Signs: Last Vital Signs Temp 99.1 F 05/07/19 21:36 Pulse 95 05/07/19 22:21 Resp 19 05/07/19 22:21 BP 137/88 05/07/19 22:21 Pulse Ox 96 05/07/19 21:36 Weight: 100 lb - Exam General: Lethargic. No: Cooperative HEENT: Conjunctiva Clear, Hearing Intact, Normal Nasal Septum, Posterior Pharynx Clear, Pupils Equal. No: Mucosa Moist & [place] Neck: Supple, Trachea Midline, +2 Carotid Pulse wo Bruit Lungs: Clear to Auscultation, Normal Respiratory Effort Cardiovascular: Regular Rate, Regular Rhythm, Normal S1, Normal S2. No: Systolic Murmur, Diastolic Murmur GI/Abdominal Exam: Soft, No Organomegaly, Tender. No: Distended, Guarding, Rigid, Rebound Back Exam: Normal Inspection, Full Range of Motion Extremities: Non-Tender, No Pedal Edema Skin: Warm, Dry, Intact Neurological: Cranial Nerves Intact, Strength Equal Bilateral, Normal Speech, Normal Tone, Sensation Intact. No: Focal Deficit - Patient Data Lab Results Last 24 hrs: Laboratory Results - last 24 hr 05/07/19 05/07/19 05/07/19 Range/Units 21:20 21:20 21:57 WBC 12.2 H (4.5-11.0) K/uL RBC 6.09 H (3.30-5.50) M/uL Hgb 15.7 H (12.0-15.0) g/dL Hct 48.9 H (36.0-48.0) % MCV 80 (80-98) fL MCH 26 L (27-31) pg MCHC 32 (32-36) % Plt Count 408 H (150-400) K/uL VBG pH 7.131 L (7.350-7.450) Sodium 128 L (140-148) mmol/L Potassium 4.7 (3.6-5.2) mmol/L Chloride 90 L (100-108) mmol/L Carbon Dioxide 9 L (21-32) mmol/L Anion Gap 33.7 H (5.0-14.0) mmol/L BUN 21 H (7-18) mg/dL Creatinine 1.3 H (0.6-1.0) mg/dL Est Cr Clr Drug Dosing 38.31 mL/min Estimated GFR (MDRD) 44 L (>60) Glucose 499 H* (74-106) mg/dL Lactic Acid (0.4-2.0) mmol/L Calcium 9.1 D (8.5-10.1) mg/dL Magnesium (1.8-2.4) mg/dL Ketones (NEGATIVE) 05/07/19 05/07/19 05/07/19 Range/Units 21:57 22:32 22:32 WBC (4.5-11.0) K/uL RBC (3.30-5.50) M/uL Hgb (12.0-15.0) g/dL Hct (36.0-48.0) % MCV (80-98) fL MCH (27-31) pg MCHC (32-36) % Plt Count (150-400) K/uL VBG pH (7.350-7.450) Sodium (140-148) mmol/L Potassium (3.6-5.2) mmol/L Chloride (100-108) mmol/L Carbon Dioxide (21-32) mmol/L Anion Gap (5.0-14.0) mmol/L BUN (7-18) mg/dL Creatinine (0.6-1.0) mg/dL Est Cr Clr Drug Dosing mL/min Estimated GFR (MDRD) (>60) Glucose (74-106) mg/dL Lactic Acid 4.4 H (0.4-2.0) mmol/L Calcium (8.5-10.1) mg/dL Magnesium 1.8 (1.8-2.4) mg/dL Ketones Small H (NEGATIVE) Result Diagrams: 05/07/19 21:20 05/07/19 21:20 Sepsis Event Note - Evaluation Sepsis Screening Result: No Definite Risk - Focused Exam Vital Signs: Vital Signs Temp Pulse Resp BP Pulse Ox 05/07/19 22:21 95 19 137/88 05/07/19 21:56 99 21 H 133/86 05/07/19 21:36 99.1 F 108 H 20 125/85 96 05/07/19 21:22 99.1 F 108 H 20 125/85 96 Date Exam was Performed: 05/07/19 Time Exam was Performed: 23:23 *Q Meaningful Use (ADM) - VTE Risk Assess *Q Each Risk Factor Represents 1 Point: Age 41 - 59 years Total Score 1 Point Risk Factors: 1 Each Risk Factor Represents 2 Points: None Total Score 2 Point Risk Factors: 0 Each Risk Factor Represents 3 Points: None Total Score 3 Point Risk Factors: 0 Each Risk Factor Represents 5 Points: None Total Score 5 Point Risk Factors: 0 Venous Thromboembolism Risk Factor Score *Q: 1 Problem List Initiated/Reviewed/Updated: Yes Orders Last 24hrs: Active Orders 24 hr Category Date Time Status Patient Status Manage Transfer [TRANSFER] Routine ADT 05/07/19 23:14 Ordered DRUG SCREEN, URINE [URCHEM] Stat Lab 05/07/19 22:03 Ordered UA W/MICROSCOPIC [URIN] Stat Lab 05/07/19 21:26 Ordered Resuscitation Status Routine Resus Stat 05/07/19 23:15 Ordered Assessment/Plan Comment:: ASSESSMENT AND PLAN DIABETIC KETOACIDOSIS-recent history of nausea vomiting with poor oral intake. She has not been monitoring glucose levels or taking her usual insulin. Laboratory tests consistent with underlying ketoacidosis including elevated glucose level, decreased carbon dioxide, and elevated anion gap. Ketones and lactic acid are pending as well as urinalysis and urine drug screen. -IV fluids per ketoacidosis protocol -She has received a bolus dose of insulin in the emergency department -Continuous infusion of IV insulin per protocol -Monitor and replace electrolytes per ketoacidosis protocol -Every hour glucometers -Transition to subcutaneous insulin after resolution of ketoacidosis LONGSTANDING HISTORY OF METHAMPHETAMINE ABUSE -Night or for withdrawal symptoms BACK PAIN-following a fall 2 days ago -Radiologic review of x-rays pending MAINTENANCE ISSUES -DVT prophylaxis; SCUDs -GI prophylaxis; IV Protonix -[place] catheter; not indicated -Nutrition; consistent carb diet -Nicotine dependence; not required CODE STATUS-FULL CODE ADMISSION STATUS-patient will be admitted to inpatient status, expect at least a 2 night hospital stay for evaluation and management of problems as outlined above. At the time of this admission I do not reasonably expected evaluation and management of this problem will require more than a 96 hour hospital stay. DISPOSITION-anticipate discharge to home after the hospital stay. PRIMARY CARE PROVIDER- - Mortality Measure Prognosis:: Good
[2019-05-08] MEDS ORDERED: Potassium Chloride 20 MEQ in Premix Bag 1 BAG IV PRN (01:00)
[2019-05-08] MEDS: oxyCODONE 5 MG Tab PO PRN ×4 (03:12→23:07)
[2019-05-08 06:56] LABS: HEMOGLOBIN A1C > 13.5 % (4.5-6.2)
[2019-05-08] MEDS ORDERED: Glucose Gel 15 GM in 37.5 GM Tube PO PRN (09:03)
[2019-05-08] MEDS ORDERED: 50% Dextrose in Water 50 ML Syringe IV PRN (09:03)
--- NOTE | 2019-05-08 09:16 | PCM.PN ---
- General Info Date of Service: 05/08/19 Subjective Update: Ms. Thomas has improved from admission with much better control of glucose levels and resolution of ketoacidosis. She is somewhat more cooperative today, still appears to be fairly confused and is unsure of her usual insulin dosing. Hemoglobin A1c is markedly elevated at greater than 13.5. Urinalysis obtained after admission shows evidence of underlying infection. Functional Status: Reports: Tolerating Diet, Urinating - Review of Systems General: Reports: Weakness. Denies: Fever, Chills Pulmonary: Reports: No Symptoms Cardiovascular: Reports: No Symptoms Gastrointestinal: Reports: No Symptoms - Patient Data Vitals - Most Recent: Last Vital Signs Temp 98.8 F 05/08/19 08:00 Pulse 95 05/08/19 08:00 Resp 10 L 05/08/19 08:00 BP 105/74 05/08/19 08:00 Pulse Ox 99 05/08/19 08:00 Weight - Most Recent: 102 lb 1.184 oz I&O - Last 24 Hours: Intake & Output 05/07/19 05/08/19 05/08/19 22:59 06:59 14:59 Intake Total 2461 Output Total 1000 Balance 1461 Lab Results Last 24 Hours: Laboratory Results - last 24 hr 05/07/19 05/07/19 05/07/19 Range/Units 21:20 21:20 21:57 WBC 12.2 H (4.5-11.0) K/uL RBC 6.09 H (3.30-5.50) M/uL Hgb 15.7 H (12.0-15.0) g/dL Hct 48.9 H (36.0-48.0) % MCV 80 (80-98) fL MCH 26 L (27-31) pg MCHC 32 (32-36) % Plt Count 408 H (150-400) K/uL Neut % (Auto) (36-66) % Lymph % (Auto) (24-44) % [place] % (Auto) (2-6) % Eos % (Auto) (2-4) % Baso % (Auto) (0-1) % VBG pH 7.131 L (7.350-7.450) Sodium 128 L (140-148) mmol/L Potassium 4.7 (3.6-5.2) mmol/L Chloride 90 L (100-108) mmol/L Carbon Dioxide 9 L (21-32) mmol/L Anion Gap 33.7 H (5.0-14.0) mmol/L BUN 21 H (7-18) mg/dL Creatinine 1.3 H (0.6-1.0) mg/dL Est Cr Clr Drug Dosing 38.31 mL/min Estimated GFR (MDRD) 44 L (>60) Glucose 499 H* (74-106) mg/dL Hemoglobin A1c (4.5-6.2) % Lactic Acid (0.4-2.0) mmol/L Calcium 9.1 D (8.5-10.1) mg/dL Phosphorus (2.5-4.9) mg/dL Magnesium (1.8-2.4) mg/dL Urine Color (YELLOW) Urine Appearance (CLEAR) Urine pH (5.0-8.0) Ur Specific [place] (1.008-1.030) Urine Protein (NEGATIVE) mg/dL Urine Glucose (UA) (NEGATIVE) mg/dL Urine Ketones (NEGATIVE) mg/dL Urine Occult Blood (NEGATIVE) Urine Nitrite (NEGATIVE) Urine Bilirubin (NEGATIVE) Urine Urobilinogen (0.2-1.0) EU/dL Ur Leukocyte Esterase (NEGATIVE) Urine RBC (0-5) Urine WBC (0-5) Ur Epithelial Cells Amorphous Sediment Urine Bacteria Urine Mucus Urine Other Urine Opiates Screen (NEGATIVE) Ur Oxycodone Screen (NEGATIVE) Urine Methadone Screen (NEGATIVE) Ur Propoxyphene Screen (NEGATIVE) Ur Barbiturates Screen (NEGATIVE) Ur Tricyclics Screen (NEGATIVE) Ur Phencyclidine Scrn (NEGATIVE) Ur Amphetamine Screen (NEGATIVE) U Methamphetamines Scrn (NEGATIVE) Urine MDMA Screen (NEGATIVE) U Benzodiazepines Scrn (NEGATIVE) U Cocaine Metab Screen (NEGATIVE) U Marijuana (THC) Screen (NEGATIVE) Ketones (NEGATIVE) 05/07/19 05/07/19 05/07/19 Range/Units 21:57 22:32 22:32 WBC (4.5-11.0) K/uL RBC (3.30-5.50) M/uL Hgb (12.0-15.0) g/dL Hct (36.0-48.0) % MCV (80-98) fL MCH (27-31) pg MCHC (32-36) % Plt Count (150-400) K/uL Neut % (Auto) (36-66) % Lymph % (Auto) (24-44) % [place] % (Auto) (2-6) % Eos % (Auto) (2-4) % Baso % (Auto) (0-1) % VBG pH (7.350-7.450) Sodium (140-148) mmol/L Potassium (3.6-5.2) mmol/L Chloride (100-108) mmol/L Carbon Dioxide (21-32) mmol/L Anion Gap (5.0-14.0) mmol/L BUN (7-18) mg/dL Creatinine (0.6-1.0) mg/dL Est Cr Clr Drug Dosing mL/min Estimated GFR (MDRD) (>60) Glucose (74-106) mg/dL Hemoglobin A1c (4.5-6.2) % Lactic Acid 4.4 H (0.4-2.0) mmol/L Calcium (8.5-10.1) mg/dL Phosphorus (2.5-4.9) mg/dL Magnesium 1.8 (1.8-2.4) mg/dL Urine Color (YELLOW) Urine Appearance (CLEAR) Urine pH (5.0-8.0) Ur Specific [place] (1.008-1.030) Urine Protein (NEGATIVE) mg/dL Urine Glucose (UA) (NEGATIVE) mg/dL Urine Ketones (NEGATIVE) mg/dL Urine Occult Blood (NEGATIVE) Urine Nitrite (NEGATIVE) Urine Bilirubin (NEGATIVE) Urine Urobilinogen (0.2-1.0) EU/dL Ur Leukocyte Esterase (NEGATIVE) Urine RBC (0-5) Urine WBC (0-5) Ur Epithelial Cells Amorphous Sediment Urine Bacteria Urine Mucus Urine Other Urine Opiates Screen (NEGATIVE) Ur Oxycodone Screen (NEGATIVE) Urine Methadone Screen (NEGATIVE) Ur Propoxyphene Screen (NEGATIVE) Ur Barbiturates Screen (NEGATIVE) Ur Tricyclics Screen (NEGATIVE) Ur Phencyclidine Scrn (NEGATIVE) Ur Amphetamine Screen (NEGATIVE) U Methamphetamines Scrn (NEGATIVE) Urine MDMA Screen (NEGATIVE) U Benzodiazepines Scrn (NEGATIVE) U Cocaine Metab Screen (NEGATIVE) U Marijuana (THC) Screen (NEGATIVE) Ketones Small H (NEGATIVE) 05/07/19 05/08/19 05/08/19 Range/Units 23:40 01:31 03:14 WBC (4.5-11.0) K/uL RBC (3.30-5.50) M/uL Hgb (12.0-15.0) g/dL Hct (36.0-48.0) % MCV (80-98) fL MCH (27-31) pg MCHC (32-36) % Plt Count (150-400) K/uL Neut % (Auto) (36-66) % Lymph % (Auto) (24-44) % [place] % (Auto) (2-6) % Eos % (Auto) (2-4) % Baso % (Auto) (0-1) % VBG pH (7.350-7.450) Sodium 129 L (140-148) mmol/L Potassium 4.4 3.7 (3.6-5.2) mmol/L Chloride 93 L (100-108) mmol/L Carbon Dioxide 10 L (21-32) mmol/L Anion Gap 30.4 H (5.0-14.0) mmol/L BUN 22 H (7-18) mg/dL Creatinine 1.1 H (0.6-1.0) mg/dL Est Cr Clr Drug Dosing 45.27 mL/min Estimated GFR (MDRD) 53 L (>60) Glucose 411 H* (74-106) mg/dL Hemoglobin A1c (4.5-6.2) % Lactic Acid (0.4-2.0) mmol/L Calcium 8.5 (8.5-10.1) mg/dL Phosphorus 3.2 (2.5-4.9) mg/dL Magnesium 1.7 L (1.8-2.4) mg/dL Urine Color Yellow (YELLOW) Urine Appearance Cloudy A (CLEAR) Urine pH 5.5 (5.0-8.0) Ur Specific [place] >= 1.030 (1.008-1.030) Urine Protein 30 H (NEGATIVE) mg/dL Urine Glucose (UA) 500 H (NEGATIVE) mg/dL Urine Ketones 80 H (NEGATIVE) mg/dL Urine Occult Blood Large H (NEGATIVE) Urine Nitrite Negative (NEGATIVE) Urine Bilirubin Negative (NEGATIVE) Urine Urobilinogen 0.2 (0.2-1.0) EU/dL Ur Leukocyte Esterase Small H (NEGATIVE) Urine RBC 20-30 H (0-5) Urine WBC 20-30 H (0-5) Ur Epithelial Cells Few Amorphous Sediment Not seen Urine Bacteria Moderate Urine Mucus Not seen Urine Other Urine Opiates Screen (NEGATIVE) Ur Oxycodone Screen (NEGATIVE) Urine Methadone Screen (NEGATIVE) Ur Propoxyphene Screen (NEGATIVE) Ur Barbiturates Screen (NEGATIVE) Ur Tricyclics Screen (NEGATIVE) Ur Phencyclidine Scrn (NEGATIVE) Ur Amphetamine Screen (NEGATIVE) U Methamphetamines Scrn (NEGATIVE) Urine MDMA Screen (NEGATIVE) U Benzodiazepines Scrn (NEGATIVE) U Cocaine Metab Screen (NEGATIVE) U Marijuana (THC) Screen (NEGATIVE) Ketones (NEGATIVE) 05/08/19 05/08/19 05/08/19 Range/Units 03:14 03:40 05:30 WBC 10.7 (4.5-11.0) K/uL RBC 4.79 (3.30-5.50) M/uL Hgb 12.0 D (12.0-15.0) g/dL Hct 37.8 (36.0-48.0) % MCV 79 L (80-98) fL MCH 25 L (27-31) pg MCHC 32 (32-36) % Plt Count 323 (150-400) K/uL Neut % (Auto) 77 H (36-66) % Lymph % (Auto) 11 L (24-44) % [place] % (Auto) 11 H (2-6) % Eos % (Auto) 0 L (2-4) % Baso % (Auto) 0 (0-1) % VBG pH (7.350-7.450) Sodium 133 L (140-148) mmol/L Potassium 4.1 (3.6-5.2) mmol/L Chloride 102 (100-108) mmol/L Carbon Dioxide 18 L (21-32) mmol/L Anion Gap 17.1 H (5.0-14.0) mmol/L BUN 18 (7-18) mg/dL Creatinine 0.9 (0.6-1.0) mg/dL Est Cr Clr Drug Dosing 56.48 mL/min Estimated GFR (MDRD) > 60 (>60) Glucose 171 H (74-106) mg/dL Hemoglobin A1c (4.5-6.2) % Lactic Acid (0.4-2.0) mmol/L Calcium 7.6 L (8.5-10.1) mg/dL Phosphorus (2.5-4.9) mg/dL Magnesium (1.8-2.4) mg/dL Urine Color (YELLOW) Urine Appearance (CLEAR) Urine pH (5.0-8.0) Ur Specific [place] (1.008-1.030) Urine Protein (NEGATIVE) mg/dL Urine Glucose (UA) (NEGATIVE) mg/dL Urine Ketones (NEGATIVE) mg/dL Urine Occult Blood (NEGATIVE) Urine Nitrite (NEGATIVE) Urine Bilirubin (NEGATIVE) Urine Urobilinogen (0.2-1.0) EU/dL Ur Leukocyte Esterase (NEGATIVE) Urine RBC (0-5) Urine WBC (0-5) Ur Epithelial Cells Amorphous Sediment Urine Bacteria Urine Mucus Urine Other Urine Opiates Screen Negative (NEGATIVE) Ur Oxycodone Screen Negative (NEGATIVE) Urine Methadone Screen Negative (NEGATIVE) Ur Propoxyphene Screen Negative (NEGATIVE) Ur Barbiturates Screen Negative (NEGATIVE) Ur Tricyclics Screen Negative (NEGATIVE) Ur Phencyclidine Scrn Negative (NEGATIVE) Ur Amphetamine Screen Negative (NEGATIVE) U Methamphetamines Scrn Negative (NEGATIVE) Urine MDMA Screen Negative (NEGATIVE) U Benzodiazepines Scrn Negative (NEGATIVE) U Cocaine Metab Screen Negative (NEGATIVE) U Marijuana (THC) Screen Negative (NEGATIVE) Ketones (NEGATIVE) 05/08/19 05/08/19 05/08/19 Range/Units 05:30 05:30 07:34 WBC (4.5-11.0) K/uL RBC (3.30-5.50) M/uL Hgb (12.0-15.0) g/dL Hct (36.0-48.0) % MCV (80-98) fL MCH (27-31) pg MCHC (32-36) % Plt Count (150-400) K/uL Neut % (Auto) (36-66) % Lymph % (Auto) (24-44) % [place] % (Auto) (2-6) % Eos % (Auto) (2-4) % Baso % (Auto) (0-1) % VBG pH (7.350-7.450) Sodium 133 L (140-148) mmol/L Potassium 4.2 3.9 (3.6-5.2) mmol/L Chloride 104 (100-108) mmol/L Carbon Dioxide 22 (21-32) mmol/L Anion Gap 10.9 (5.0-14.0) mmol/L BUN 15 (7-18) mg/dL Creatinine 0.8 (0.6-1.0) mg/dL Est Cr Clr Drug Dosing 63.54 mL/min Estimated GFR (MDRD) > 60 (>60) Glucose 191 H (74-106) mg/dL Hemoglobin A1c > 13.5 H (4.5-6.2) % Lactic Acid (0.4-2.0) mmol/L Calcium 7.4 L (8.5-10.1) mg/dL Phosphorus 1.8 L (2.5-4.9) mg/dL Magnesium 2.0 (1.8-2.4) mg/dL Urine Color (YELLOW) Urine Appearance (CLEAR) Urine pH (5.0-8.0) Ur Specific [place] (1.008-1.030) Urine Protein (NEGATIVE) mg/dL Urine Glucose (UA) (NEGATIVE) mg/dL Urine Ketones (NEGATIVE) mg/dL Urine Occult Blood (NEGATIVE) Urine Nitrite (NEGATIVE) Urine Bilirubin (NEGATIVE) Urine Urobilinogen (0.2-1.0) EU/dL Ur Leukocyte Esterase (NEGATIVE) Urine RBC (0-5) Urine WBC (0-5) Ur Epithelial Cells Amorphous Sediment Urine Bacteria Urine Mucus Urine Other Urine Opiates Screen (NEGATIVE) Ur Oxycodone Screen (NEGATIVE) Urine Methadone Screen (NEGATIVE) Ur Propoxyphene Screen (NEGATIVE) Ur Barbiturates Screen (NEGATIVE) Ur Tricyclics Screen (NEGATIVE) Ur Phencyclidine Scrn (NEGATIVE) Ur Amphetamine Screen (NEGATIVE) U Methamphetamines Scrn (NEGATIVE) Urine MDMA Screen (NEGATIVE) U Benzodiazepines Scrn (NEGATIVE) U Cocaine Metab Screen (NEGATIVE) U Marijuana (THC) Screen (NEGATIVE) Ketones (NEGATIVE) Med Orders - Current: Current Medications Acetaminophen (Tylenol) 650 mg PO Q4H PRN PRN Reason: Pain (Mild 1-3)/fever Dextrose (Glutose 15) 15 gm PO ONETIME PRN PRN Reason: Hypoglycemia Dextrose/Water (Dextrose 50% In Water) 50 ml IV ONETIME PRN PRN Reason: Hypoglycemia Insulin Human Regular 100 unit (/ Sodium Chloride) 100 mls @ 0.5 mls/hr IV TITRATE ANIL; Protocol Last Titration: 05/08/19 08:08 Dose: 3 unit/hr, 3 mls/hr Potassium Chloride 20 meq/ (Premix) 100 mls @ 50 mls/hr IV ONETIME PRN PRN Reason: If serum K between 3.5-3.9 Last Admin: 05/08/19 02:01 Dose: 50 mls/hr Ceftriaxone Sodium 1 gm/ (Sodium Chloride) 50 mls @ 100 mls/hr IV Q24H ANIL Insulin Glargine (Lantus Solostar) 50 units SUBCUT DAILY [facility] Insulin Human Lispro (Humalog) 0 unit SUBCUT QIDACANDBED [facility]; Protocol Ondansetron HCl (Zofran) 4 mg IV Q4H PRN PRN Reason: Nausea/Vomiting Oxycodone HCl (Oxycodone) 5 mg PO Q4H PRN PRN Reason: Pain (moderate 4-6) Last Admin: 05/08/19 03:12 Dose: 5 mg Sodium Chloride (Saline Flush) 10 ml FLUSH ASDIRECTED PRN PRN Reason: Keep Vein Open Discontinued Medications Acetaminophen (Tylenol) 650 mg PO NOW ONE Stop: 05/07/19 22:36 Last Admin: 05/07/19 22:53 Dose: 650 mg Dextrose/Water (Dextrose 50% In Water) 50 ml IVPUSH ONETIME PRN PRN Reason: Blood Glucose Lactated Ringer's (Ringers, Lactated) 1,000 mls @ 1,000 mls/hr IV BOLUS ONE Stop: 05/07/19 22:26 Last Admin: 05/07/19 21:48 Dose: 1,000 mls/hr Dextrose/Sodium Chloride (Dextrose 5%-1/2 Ns) 1,000 mls @ 150 mls/hr IV .CONTINUOUS PRN PRN Reason: Blood Glucose Last Admin: 05/08/19 03:21 Dose: 150 mls/hr Magnesium Sulfate (Magnesium Sulfate In Water Premix) 50 mls @ 25 mls/hr IV ONETIME PRN PRN Reason: low magnesium Last Admin: 05/08/19 00:18 Dose: 25 mls/hr Potassium Chloride 20 meq/ (Premix) 100 mls @ 50 mls/hr IV ONETIME ONE Stop: 05/08/19 01:29 Last Admin: 05/08/19 01:29 Dose: Not Given Potassium Chloride 20 meq/ (Premix) 100 mls @ 50 mls/hr IV Q2H PRN PRN Reason: Hypokalemia Potassium Chloride 20 meq/ (Premix) 100 mls @ 50 mls/hr IV Q2H PRN PRN Reason: Hypokalemia Sodium Chloride (Normal Saline) 2,000 mls @ 500 mls/hr IV .CONTINUOUS PRN PRN Reason: Blood Glucose Last Admin: 05/08/19 00:15 Dose: 500 mls/hr Sodium Phosphate 60 mmole/ (Sodium Chloride) 270 mls @ 62.5 mls/hr IV ONETIME PRN PRN Reason: Low phophorus Insulin Human Regular (Humulin R) 20 unit SUBCUT ONETIME ONE Stop: 05/07/19 21:47 Last Admin: 05/07/19 21:53 Dose: 20 units Metoclopramide HCl (Reglan) 10 mg IVPUSH ONETIME ONE Stop: 05/07/19 21:27 Last Admin: 05/07/19 21:49 Dose: 10 mg Potassium Chloride (Potassium Chloride Solution) 20 meq PO NOW PRN PRN Reason: Hypokalemia Potassium Chloride (Potassium Chloride Solution) 40 meq PO NOW PRN PRN Reason: Hypokalemia Potassium Chloride (Potassium Chloride Solution) 40 meq PO Q2H PRN PRN Reason: Hypokalemia - Exam Quality Assessment: DVT Prophylaxis General: Alert, Oriented, Cooperative, Mild Distress Lungs: Clear to Auscultation, Normal Respiratory Effort Cardiovascular: Regular Rate, Regular Rhythm, No Murmurs GI/Abdominal Exam: Soft, Non-Tender, No Organomegaly, No Distention Sepsis Event Note - Evaluation Sepsis Screening Result: No Definite Risk - Focused Exam Vital Signs: Vital Signs Temp Pulse Resp BP Pulse Ox 05/08/19 08:00 98.8 F 95 10 L 105/74 99 05/08/19 07:00 93 98/61 05/08/19 06:00 14 111/75 99 05/08/19 05:00 14 103/73 97 05/08/19 04:00 15 120/75 97 05/08/19 03:00 97.3 F 14 117/79 100 05/08/19 02:00 17 105/67 98 05/08/19 01:00 17 107/76 98 05/08/19 00:05 99.2 F 125 H 26 H 114/78 98 05/07/19 22:21 95 19 137/88 05/07/19 21:56 99 21 H 133/86 05/07/19 21:36 99.1 F 108 H 20 125/85 96 05/07/19 21:22 99.1 F 108 H 20 125/85 96 Date Exam was Performed: 05/08/19 Time Exam was Performed: 09:11 - Problem List Review Problem List Initiated/Reviewed/Updated: Yes - My Orders Last 24 Hours: My Active Orders 05/07/19 23:15 Resuscitation Status Routine 05/07/19 23:30 Patient Status [ADT] Routine Ambulate [RC] QID Cardiac Monitoring [RC] .As Directed Communication Order [RC] ASDIRECTED Diabetes Education [RC] Click to Edit Height and Weight [RC] DAILY Intake and Output [RC] QSHIFT Notify Provider Vital Signs [RC] ASDIRECTED Oxygen Therapy [RC] PRN Peripheral IV Care [RC] . DIRECTED Up With Assistance [RC] ASDIRECTED Up to Chair [RC] QID VTE/DVT Education [RC] Per Unit Routine Insulin Regular, Human [HumuLIN R] 100 unit Sodium Chloride 0.9% [Normal Saline] 99 ml IV TITRATE Ondansetron [Zofran] 4 mg IV Q4H PRN Sodium Chloride 0.9% [Saline Flush] 10 ml FLUSH ASDIRECTED PRN oxyCODONE 5 mg PO Q4H PRN Peripheral IV Insertion Adult [OM.PC] Routine Sequential Compression Device [OM.PC] Per Unit Routine 05/07/19 Dinner Consistent Carbohydrate Diet [DIET] 05/08/19 01:00 Potassium Chloride [KCL 20 MEQ in Water 100 ML] 20 meq Premix Bag 1 bag IV ONETIME 05/08/19 02:53 Acetaminophen [Tylenol] 650 mg PO Q4H PRN 05/08/19 09:02 Convert IV to Saline Lock [OM.PC] Routine 05/08/19 09:03 Blood Glucose Check, Bedside [RC] QIDACANDBED Communication Order [RC] STAT Diabetes Education [RC] Click to Edit Notify Provider [RC] PRN Dextrose 50% in Water 50 ml IV ONETIME PRN Dextrose [Glutose 15] 15 gm PO ONETIME PRN 05/08/19 09:10 CULTURE URINE [RM] Stat 05/08/19 09:15 Insulin Glarg,Human.Rec.Analog [LantUS Solostar] 50 units SUBCUT DAILY Lactobacillus Rhamnosus GG [Culturelle] 1 cap PO BID cefTRIAXone [Rocephin] 1 gm Sodium Chloride 0.9% [Normal Saline] 50 ml IV Q24H 05/08/19 11:00 Insulin Lispro [HumaLOG] See Protocol SUBCUT QIDACANDBED 05/08/19 11:30 GLUCOSE POC LAB TO COLLECT [POC] QIDACANDBED 05/08/19 16:30 GLUCOSE POC LAB TO COLLECT [POC] QIDACANDBED 05/08/19 17:00 BASIC METABOLIC PANEL,BMP [CHEM] Stat 05/08/19 21:00 GLUCOSE POC LAB TO COLLECT [POC] QIDACANDBED 05/09/19 05:00 BASIC METABOLIC PANEL,BMP [CHEM] Timed 05/09/19 07:30 GLUCOSE POC LAB TO COLLECT [POC] QIDACANDBED 05/09/19 11:30 GLUCOSE POC LAB TO COLLECT [POC] QIDACANDBED 05/09/19 16:30 GLUCOSE POC LAB TO COLLECT [POC] QIDACANDBED 05/09/19 21:00 GLUCOSE POC LAB TO COLLECT [POC] QIDACANDBED 05/10/19 07:30 GLUCOSE POC LAB TO COLLECT [POC] QIDACANDBED 05/10/19 11:30 GLUCOSE POC LAB TO COLLECT [POC] QIDACANDBED 05/10/19 16:30 GLUCOSE POC LAB TO COLLECT [POC] QIDACANDBED 05/10/19 21:00 GLUCOSE POC LAB TO COLLECT [POC] QIDACANDBED 05/11/19 07:30 GLUCOSE POC LAB TO COLLECT [POC] QIDACANDBED 05/11/19 11:30 GLUCOSE POC LAB TO COLLECT [POC] QIDACANDBED 05/11/19 16:30 GLUCOSE POC LAB TO COLLECT [POC] QIDACANDBED 05/11/19 21:00 GLUCOSE POC LAB TO COLLECT [POC] QIDACANDBED 05/12/19 07:30 GLUCOSE POC LAB TO COLLECT [POC] QIDACANDBED 05/12/19 11:30 GLUCOSE POC LAB TO COLLECT [POC] QIDACANDBED 05/12/19 16:30 GLUCOSE POC LAB TO COLLECT [POC] QIDACANDBED 05/12/19 21:00 GLUCOSE POC LAB TO COLLECT [POC] QIDACANDBED 05/13/19 07:30 GLUCOSE POC LAB TO COLLECT [POC] QIDACANDBED - Plan Plan:: ASSESSMENT AND PLAN DIABETIC KETOACIDOSIS-resolved -Saline lock IV -Lantus 50 units subcu daily -Humalog moderate level sliding scale -4 times daily glucometers LONGSTANDING HISTORY OF METHAMPHETAMINE ABUSE -Monitor for withdrawal symptoms URINARY TRACT INFECTION -Urine culture pending -Ceftriaxone 1 g IV every 24 hours pending culture result BACK PAIN-following a fall 2 days ago -Radiologic review of x-rays pending MAINTENANCE ISSUES -DVT prophylaxis; SCUDs -GI prophylaxis; IV Protonix -[place] catheter; not indicated -Nutrition; consistent carb diet -Nicotine dependence; not required CODE STATUS-FULL CODE ADMISSION STATUS-patient will be admitted to inpatient status, expect at least a 2 night hospital stay for evaluation and management of problems as outlined above. At the time of this admission I do not reasonably expected evaluation and management of this problem will require more than a 96 hour hospital stay. DISPOSITION-anticipate discharge to home after the hospital stay. PRIMARY CARE PROVIDER-
[2019-05-08] MEDS: Insulin Glargine,Human Rec. Analog 100 Units/ML 3 ML Pen SUBCUT SCH (09:37)
[2019-05-08] MEDS: Lactobacillus Rhamnosus GG (Probiotic) Cap PO SCH ×2 (10:11→21:00)
[2019-05-08] MEDS: cefTRIAXone 1 GM in Sodium Chloride 0.9% 50 ML IV SCH (10:13)
[2019-05-08] MEDS: Ondansetron 4 MG/2 ML SDV IV PRN ×2 (10:17→17:59)
[2019-05-08] MEDS: Insulin Lispro 100 Unit/ML 3 ML KwikPen SUBCUT SCH ×3 (11:22→21:00)
[2019-05-08] MEDS: Sodium Chloride 0.9% 1,000 ML IV SCH ×2 (12:57→23:05)
[2019-05-08] MEDS: Acetaminophen 325 MG Tab PO PRN ×2 (13:05→17:58)
[2019-05-08] MEDS ORDERED: Nicotine Polacrilex 2 MG Gum CHEW PRN (17:07)
[2019-05-08] MEDS: Pantoprazole 40 MG Vial IVPUSH SCH (17:09)
[2019-05-08] MEDS: Nicotine 21 MG/24 Hr Patch TRDERM SCH (17:19)
[2019-05-08] MEDS ORDERED: Potassium Chloride 20 MEQ Tab.ER PO ONE (17:41)
[2019-05-09] MEDS: Pantoprazole 40 MG Vial IVPUSH SCH ×2 (04:16→16:32)
[2019-05-09] MEDS: oxyCODONE 5 MG Tab PO PRN ×4 (04:20→21:29)
[2019-05-09] MEDS: Ondansetron 4 MG/2 ML SDV IV PRN ×3 (04:22→14:11)
[2019-05-09] MEDS: Insulin Lispro 100 Unit/ML 3 ML KwikPen SUBCUT SCH ×4 (07:40→21:25)
[2019-05-09] MEDS ORDERED: Potassium Chloride 20 MEQ Tab.ER PO ONE ×2 (09:00→17:00)
[2019-05-09] MEDS: Lactobacillus Rhamnosus GG (Probiotic) Cap PO SCH ×2 (09:02→21:25)
[2019-05-09] MEDS: Nicotine 21 MG/24 Hr Patch TRDERM SCH (09:02)
[2019-05-09] MEDS: Sodium Chloride 0.9% 1,000 ML IV SCH ×2 (09:04→19:43)
[2019-05-09] MEDS: cefTRIAXone 1 GM in Sodium Chloride 0.9% 50 ML IV SCH (09:06)
[2019-05-09] MEDS: Acetaminophen 325 MG Tab PO PRN (09:51)
--- NOTE | 2019-05-09 10:08 | PCM.PN ---
- General Info Date of Service: 05/09/19 Subjective Update: Ms. Thomas continues to experience symptoms of nausea as well as dysphasia and epigastric abdominal pain. She also continues to experience low back pain of the left related to her fall 2 days prior to admission. Ketoacidosis has resolved, glucose actually low this morning. Functional Status: Denies: Tolerating Diet, Ambulating - Review of Systems General: Reports: Weakness. Denies: Fever, Chills Pulmonary: Reports: No Symptoms Cardiovascular: Reports: No Symptoms Gastrointestinal: Reports: Abdominal Pain, Difficulty Swallowing, Nausea. Denies: Vomiting - Patient Data Vitals - Most Recent: Last Vital Signs Temp 98.6 F 05/09/19 07:50 Pulse 106 H 05/09/19 07:50 Resp 13 05/09/19 07:50 BP 114/73 05/09/19 07:50 Pulse Ox 99 05/09/19 07:50 Weight - Most Recent: 102 lb 1.184 oz I&O - Last 24 Hours: Intake & Output 05/08/19 05/09/19 05/09/19 22:59 06:59 14:59 Intake Total 1997 1467 600 Output Total 1200 400 700 Balance 797 1067 -100 Lab Results Last 24 Hours: Laboratory Results - last 24 hr 05/08/19 05/09/19 Range/Units 17:14 05:50 Sodium 135 L 136 L (140-148) mmol/L Potassium 3.5 L 3.3 L (3.6-5.2) mmol/L Chloride 104 105 (100-108) mmol/L Carbon Dioxide 22 24 (21-32) mmol/L Anion Gap 12.5 10.3 (5.0-14.0) mmol/L BUN 12 6 L (7-18) mg/dL Creatinine 0.6 0.4 L (0.6-1.0) mg/dL Est Cr Clr Drug Dosing 84.72 127.08 mL/min Estimated GFR (MDRD) > 60 > 60 (>60) Glucose 111 H 66 L (74-106) mg/dL Calcium 7.8 L 7.7 L (8.5-10.1) mg/dL [place] Results Last 24 Hours: Microbiology 05/08/19 09:14 Urine Culture - Preliminary Urine, Clean Catch MIXED POSITIVE CRISTAL DAY 1 Med Orders - Current: Current Medications Acetaminophen (Tylenol) 650 mg PO Q4H PRN PRN Reason: Pain (Mild 1-3)/fever Last Admin: 05/09/19 09:51 Dose: 650 mg Dextrose (Glutose 15) 15 gm PO ONETIME PRN PRN Reason: Hypoglycemia Last Admin: 05/09/19 07:40 Dose: 15 gm Dextrose/Water (Dextrose 50% In Water) 50 ml IV ONETIME PRN PRN Reason: Hypoglycemia Potassium Chloride 20 meq/ (Premix) 100 mls @ 50 mls/hr IV ONETIME PRN PRN Reason: If serum K between 3.5-3.9 Last Admin: 05/08/19 02:01 Dose: 50 mls/hr Ceftriaxone Sodium 1 gm/ (Sodium Chloride) 50 mls @ 100 mls/hr IV Q24H [facility] Last Admin: 05/09/19 09:06 Dose: 100 mls/hr Sodium Chloride (Normal Saline) 1,000 mls @ 100 mls/hr IV ASDIRECTED [facility] Last Admin: 05/09/19 09:04 Dose: 100 mls/hr Insulin Glargine (Lantus Solostar) 50 units SUBCUT DAILY [facility] Last Admin: 05/08/19 09:37 Dose: 50 units Insulin Human Lispro (Humalog) 0 unit SUBCUT QIDACANDBED [facility]; Protocol Last Admin: 05/09/19 07:40 Dose: Not Given Lactobacillus Rhamnosus (Culturelle) 1 cap PO BID [facility] Last Admin: 05/09/19 09:02 Dose: 1 cap Magnesium Oxide (Magnesium Oxide) 400 mg PO BID [facility] Nicotine (Habitrol) 21 mg TRDERM DAILY [facility] Last Admin: 05/09/19 09:02 Dose: 21 mg Nicotine Polacrilex (Nicorelief) 2 mg CHEW Q1H PRN PRN Reason: Withdrawal Symptoms Ondansetron HCl (Zofran) 4 mg IV Q4H PRN PRN Reason: Nausea/Vomiting Last Admin: 05/09/19 09:51 Dose: 4 mg Oxycodone HCl (Oxycodone) 5 mg PO Q4H PRN PRN Reason: Pain (moderate 4-6) Last Admin: 05/09/19 09:51 Dose: 5 mg Pantoprazole Sodium (Protonix Iv) 40 mg IVPUSH Q12H [facility] Last Admin: 05/09/19 04:16 Dose: 40 mg Potassium Chloride (Klor-Con M20) 40 meq PO ONETIME ONE Stop: 05/09/19 17:01 Sodium Chloride (Saline Flush) 10 ml FLUSH ASDIRECTED PRN PRN Reason: Keep Vein Open Discontinued Medications Acetaminophen (Tylenol) 650 mg PO NOW ONE Stop: 05/07/19 22:36 Last Admin: 05/07/19 22:53 Dose: 650 mg Dextrose/Water (Dextrose 50% In Water) 50 ml IVPUSH ONETIME PRN PRN Reason: Blood Glucose Lactated Ringer's (Ringers, Lactated) 1,000 mls @ 1,000 mls/hr IV BOLUS ONE Stop: 05/07/19 22:26 Last Admin: 05/07/19 21:48 Dose: 1,000 mls/hr Dextrose/Sodium Chloride (Dextrose 5%-1/2 Ns) 1,000 mls @ 150 mls/hr IV .CONTINUOUS PRN PRN Reason: Blood Glucose Last Admin: 05/08/19 03:21 Dose: 150 mls/hr Insulin Human Regular 100 unit (/ Sodium Chloride) 100 mls @ 0.5 mls/hr IV TITRATE [facility]; Protocol Last Titration: 05/08/19 08:08 Dose: 3 unit/hr, 3 mls/hr Magnesium Sulfate (Magnesium Sulfate In Water Premix) 50 mls @ 25 mls/hr IV ONETIME PRN PRN Reason: low magnesium Last Admin: 05/08/19 00:18 Dose: 25 mls/hr Potassium Chloride 20 meq/ (Premix) 100 mls @ 50 mls/hr IV ONETIME ONE Stop: 05/08/19 01:29 Last Admin: 05/08/19 01:29 Dose: Not Given Potassium Chloride 20 meq/ (Premix) 100 mls @ 50 mls/hr IV Q2H PRN PRN Reason: Hypokalemia Potassium Chloride 20 meq/ (Premix) 100 mls @ 50 mls/hr IV Q2H PRN PRN Reason: Hypokalemia Sodium Chloride (Normal Saline) 2,000 mls @ 500 mls/hr IV .CONTINUOUS PRN PRN Reason: Blood Glucose Last Admin: 05/08/19 00:15 Dose: 500 mls/hr Sodium Phosphate 60 mmole/ (Sodium Chloride) 270 mls @ 62.5 mls/hr IV ONETIME PRN PRN Reason: Low phophorus Insulin Human Regular (Humulin R) 20 unit SUBCUT ONETIME ONE Stop: 05/07/19 21:47 Last Admin: 05/07/19 21:53 Dose: 20 units Metoclopramide HCl (Reglan) 10 mg IVPUSH ONETIME ONE Stop: 05/07/19 21:27 Last Admin: 05/07/19 21:49 Dose: 10 mg Potassium Chloride (Potassium Chloride Solution) 20 meq PO NOW PRN PRN Reason: Hypokalemia Potassium Chloride (Potassium Chloride Solution) 40 meq PO NOW PRN PRN Reason: Hypokalemia Potassium Chloride (Potassium Chloride Solution) 40 meq PO Q2H PRN PRN Reason: Hypokalemia Potassium Chloride (Klor-Con M20) 40 meq PO ONETIME ONE Stop: 05/08/19 17:42 Last Admin: 05/08/19 17:58 Dose: 40 meq Potassium Chloride (Klor-Con M20) 40 meq PO ONETIME ONE Stop: 05/09/19 09:01 Last Admin: 05/09/19 09:02 Dose: 40 meq - Exam General: Alert, Cooperative, Moderate Distress Lungs: Clear to Auscultation, Normal Respiratory Effort Cardiovascular: Regular Rate, Regular Rhythm, No Murmurs GI/Abdominal Exam: Soft, No Organomegaly, Tender. No: Distended, Guarding, Rigid, Rebound Extremities: Non-Tender, No Pedal Edema Sepsis Event Note - Evaluation Sepsis Screening Result: No Definite Risk - Focused Exam Vital Signs: Vital Signs Temp Pulse Resp BP Pulse Ox 05/09/19 07:50 98.6 F 106 H 13 114/73 99 05/09/19 06:00 15 119/77 97 05/09/19 04:00 97 F 16 110/70 97 05/09/19 02:00 15 115/75 98 05/09/19 00:00 97.8 F 15 114/78 99 Date Exam was Performed: 05/09/19 Time Exam was Performed: 10:05 - Problem List Review Problem List Initiated/Reviewed/Updated: Yes - My Orders Last 24 Hours: My Active Orders 05/08/19 09:14 CULTURE URINE [RM] Stat 05/08/19 09:15 Insulin Glarg,Human.Rec.Analog [LantUS Solostar] 50 units SUBCUT DAILY 03/05/20 10:00 Lactobacillus Rhamnosus GG [Culturelle] 1 cap PO BID cefTRIAXone [Rocephin] 1 gm Sodium Chloride 0.9% [Normal Saline] 50 ml IV Q24H 05/08/19 10:56 Consult to Director Of Strategic Partnerships [Consult to Diabetic Nurse Specialist] [CONS] Routine 05/08/19 11:00 Insulin Lispro [HumaLOG] See Protocol SUBCUT QIDACANDBED 05/08/19 13:00 Sodium Chloride 0.9% [Normal Saline] 1,000 ml IV ASDIRECTED 05/08/19 16:00 Pantoprazole [ProTONIX IV] 40 mg IVPUSH Q12H 05/08/19 17:07 Nicotine Polacrilex [Nicorelief] 2 mg CHEW Q1H PRN 05/08/19 17:15 Nicotine [Habitrol] 21 mg TRDERM DAILY 05/09/19 10:03 Notify Provider Consults [RC] ASDIRECTED Consult to Physician [CONS] Routine 05/09/19 10:04 Consult to Physical Therapy [PT Evaluation and Treatment] [CONS] Routine 05/09/19 10:15 Magnesium Oxide 400 mg PO BID 05/09/19 17:00 Potassium Chloride [Klor-Con M20] 40 meq PO ONETIME ONE 05/10/19 05:00 BASIC METABOLIC PANEL,BMP [CHEM] Timed MAGNESIUM [CHEM] Timed 05/10/19 07:30 GLUCOSE POC LAB TO COLLECT [POC] QIDACANDBED 05/10/19 11:30 GLUCOSE POC LAB TO COLLECT [POC] QIDACANDBED 05/10/19 16:30 GLUCOSE POC LAB TO COLLECT [POC] QIDACANDBED 05/10/19 21:00 GLUCOSE POC LAB TO COLLECT [POC] QIDACANDBED 05/11/19 07:30 GLUCOSE POC LAB TO COLLECT [POC] QIDACANDBED 05/11/19 11:30 GLUCOSE POC LAB TO COLLECT [POC] QIDACANDBED 05/11/19 16:30 GLUCOSE POC LAB TO COLLECT [POC] QIDACANDBED 05/11/19 21:00 GLUCOSE POC LAB TO COLLECT [POC] QIDACANDBED 05/12/19 07:30 GLUCOSE POC LAB TO COLLECT [POC] QIDACANDBED 05/12/19 11:30 GLUCOSE POC LAB TO COLLECT [POC] QIDACANDBED 05/12/19 16:30 GLUCOSE POC LAB TO COLLECT [POC] QIDACANDBED 05/12/19 21:00 GLUCOSE POC LAB TO COLLECT [POC] QIDACANDBED 05/13/19 07:30 GLUCOSE POC LAB TO COLLECT [POC] QIDACANDBED - Plan Plan:: ASSESSMENT AND PLAN DIABETIC KETOACIDOSIS-resolved -Saline lock IV -Lantus 30 units subcu daily -Humalog moderate level sliding scale -4 times daily glucometers LONGSTANDING HISTORY OF METHAMPHETAMINE ABUSE -Monitor for withdrawal symptoms EPIGASTRIC ABDOMINAL PAIN/DYSPHASIA -Continue Protonix 40 mg IV twice daily -Consult Dr. Israel for EGD in a.m. URINARY TRACT INFECTION -Urine culture pending -Ceftriaxone 1 g IV every 24 hours pending culture result BACK PAIN-following a fall 2 days ago -Radiologic review of x-rays pending MAINTENANCE ISSUES -DVT prophylaxis; SCUDs -GI prophylaxis; IV Protonix -Caldwell catheter; not indicated -Nutrition; consistent carb diet -Nicotine dependence; not required CODE STATUS-FULL CODE ADMISSION STATUS-patient will be admitted to inpatient status, expect at least a 2 night hospital stay for evaluation and management of problems as outlined above. At the time of this admission I do not reasonably expected evaluation and management of this problem will require more than a 96 hour hospital stay. DISPOSITION-anticipate discharge to home after the hospital stay. PRIMARY CARE PROVIDER-
[2019-05-09] MEDS: Magnesium Oxide 400 MG Tab PO SCH ×2 (11:28→21:25)
[2019-05-09] MEDS: Insulin Glargine,Human Rec. Analog 100 Units/ML 3 ML Pen SUBCUT SCH ×2 (11:29→19:30)
[2019-05-09] MEDS: Acetaminophen 500 MG Tab PO SCH ×2 (14:11→21:26)
[2019-05-10] MEDS: Pantoprazole 40 MG Vial IVPUSH SCH (04:13)
[2019-05-10] MEDS: Sodium Chloride 0.9% 1,000 ML IV SCH (05:41)
[2019-05-10] MEDS ORDERED: Propofol 200 MG/20 ML SDV ONE (06:33)
[2019-05-10] MEDS ORDERED: Lidocaine 2% 5 ML SDV ONE (06:33)
[2019-05-10] MEDS: Insulin Lispro 100 Unit/ML 3 ML KwikPen SUBCUT SCH ×2 (07:29→11:40)
[2019-05-10] MEDS ORDERED: Magnesium Sulfate/Water 2 GM in Premix Bag 1 BAG IV SCH (09:00)
[2019-05-10] MEDS: Acetaminophen 500 MG Tab PO SCH (09:10)
[2019-05-10] MEDS: oxyCODONE 5 MG Tab PO PRN (09:10)
[2019-05-10] MEDS: Magnesium Oxide 400 MG Tab PO SCH (09:11)
[2019-05-10] MEDS: Nicotine 21 MG/24 Hr Patch TRDERM SCH (09:12)
[2019-05-10] MEDS: Lidocaine 2% 60 ML, Alum Hydrox/Mag Hydrox/Simeth 360 ML PO SCH ×8 (09:13→11:44)
[2019-05-10] MEDS: Lactobacillus Rhamnosus GG (Probiotic) Cap PO SCH (09:13)
[2019-05-10] MEDS: Insulin Glargine,Human Rec. Analog 100 Units/ML 3 ML Pen SUBCUT SCH (09:17)
[2019-05-10 10:20] VITALS: BP 160/95; PULSE 87
[2019-05-10] MEDS: cefTRIAXone 1 GM in Sodium Chloride 0.9% 50 ML IV SCH (10:23)
--- NOTE | 2019-05-10 11:51 | PCM.DCSUM1 ---
Discharge Summary - Discharge Data Discharge Date: 05/10/19 Discharge Disposition: Home, Self-Care 01 Condition: Stable - Referral to Home Health Primary Care Physician: PCP None - Discharge Diagnosis/Problem(s) (1) Esophageal ulceration SNOMED Code(s): 03009829 ICD Code: K22.10 - ULCER OF ESOPHAGUS WITHOUT BLEEDING Status: Acute (2) Lactic acid acidosis SNOMED Code(s): 88607504 ICD Code: E87.2 - ACIDOSIS Status: Acute (3) DKA (diabetic ketoacidoses) SNOMED Code(s): 524931019, 968121617 ICD Code: E11.10 - TYPE 2 DIABETES MELLITUS WITH KETOACIDOSIS WITHOUT COMA Status: Acute Qualifiers: Diabetes mellitus type: type 1 Diabetes mellitus complication detail: without coma Qualified Code(s): E10.10 - Type 1 diabetes mellitus with ketoacidosis without coma (4) Dehydration SNOMED Code(s): 34328852 ICD Code: E86.0 - DEHYDRATION Status: Acute (5) Low back pain SNOMED Code(s): 661177083 ICD Code: M54.5 - LOW BACK PAIN Status: Acute Qualifiers: Chronicity: acute Back pain laterality: midline Sciatica presence: without sciatica Qualified Code(s): M54.5 - Low back pain (6) Chemical dependency SNOMED Code(s): 079373947 ICD Code: F19.20 - OTHER PSYCHOACTIVE SUBSTANCE DEPENDENCE, UNCOMPLICATED Status: Chronic - Patient Summary/Data Consults: Consultations 05/08/19 10:56 Consult to [place] [Consult to Diabetic Nurse Specialist] [CONS] Routine Comment: Physician Instructions: Reason for Consult: DKA Person Notified: gini castellanos Date Notified: 05/08/19 Time Notified: 10:59 05/09/19 10:03 Consult to Physician [CONS] Routine Consulting Provider: Vladimir Israel Call Completed to Consulting Physician: Yes Reason for Consult: Epigastric abdominal pain, dysphagia, EGD in a.m. 05/09/19 10:04 Consult to Physical Therapy [PT Evaluation and Treatment] [CONS] Routine Please Evaluate and Treat. PT Reason for Consult: Lower back pain This query below is only for informational purposes and is not editable. Admission Diagnosis/Problem: Ketoacidosis Hospital Course: Ms. Thomas is a 48-year-old woman who was admitted through the emergency department with nausea, vomiting, and weakness secondary to diabetic ketoacidosis. She was uncooperative at the time that I saw her and would not answer questions concerning her recent symptoms or review of systems. History from Dr. Brooks as well as emergency department staff indicate that she ported 4 to 5 days of nausea and vomiting. She had stopped checking her glucose levels and has not been taking insulin over the past 2 days. She apparently fell 2 days ago and injured her back, x-rays were obtained in the emergency department and showed no evidence of fracture, radiologic review is pending. Longstanding history of type 1 diabetes mellitus with at least 1 previous episode of diabetic ketoacidosis. On admission was also noted to have an element of lactic acidosis secondary to dehydration. On admission she was started on IV insulin infusion per protocol as well as monitoring and management of electrolytes per ketoacidosis protocol. She was given vigorous IV fluid replacement and blood sugars were monitored closely. By the following morning there was total resolution of her lactic acidosis as well as ketoacidosis, blood sugars were in much better range. She continued to experience back pain related to a recent fall, x-rays obtained in the emergency department of the lumbar spine showed no evidence of acute fracture. She was seen by physical therapy and was able to move somewhat more easily by the time of discharge but did continue to experience some lower back muscle spasms. She also reported epigastric lower chest pain as well as dysphasia. EGD was performed by Dr. Israel on the day of discharge and did show several esophageal ulcers. She had been started on Protonix 40 mg twice daily after admission. She was able to eat and keep her food down fairly well on the day of discharge. She is instructed to stick with a soft diet until her symptoms have totally resolved. She will be on Protonix 40 mg twice daily for 2 weeks then once daily thereafter. She was given prescription for her Lantus insulin which she had run out of and will be monitoring blood sugars on a regular basis. Follow- up appointments will be scheduled with her primary care provider and nursing educator within 1 week. She will be on a soft diabetic diet, activity will be as tolerated. She is encouraged to stop methamphetamine and marijuana use but stated that she is not interested in quitting at the present time. - Patient Instructions Diet: Diabetic Diet Activity: As Tolerated Other/Special Instructions: Please schedule follow-up appointment with primary care provider within 1 week. Please schedule follow-up appointment with nursing educator within 1 week. - Discharge Plan *PRESCRIPTION DRUG MONITORING PROGRAM REVIEWED*: Not Applicable *COPY OF PRESCRIPTION DRUG MONITORING REPORT IN PATIENT PATRICK: Not Applicable Prescriptions/Med Rec: Insulin Glarg,Human.Rec.Analog [Lantus Solostar] 40 unit SUBCUT DAILY #2 pen Pantoprazole [ProTONIX] 40 mg PO BIDAC #30 tab.cr Home Medications: Home Meds Insulin Lispro [Humalog] 8 unit SQ TIDMEALS 10/30/17 [History] Insulin Glarg,Human.Rec.Analog [Lantus Solostar] 40 unit SUBCUT DAILY #2 pen 09/21 [Rx] Pantoprazole [ProTONIX] 40 mg PO BIDAC #30 tab.cr 05/10/19 [Rx] Referrals: Jonathon Valdes DESIGN ENGINEERING MANAGER [Nurse Practitioner] - 05/14/19 1:00 pm ([facility] ) - Discharge Summary/Plan Comment DC Time >30 min.: No - Patient Data Vitals - Most Recent: Last Vital Signs Temp 99.3 F 05/10/19 08:15 Pulse 87 05/10/19 10:00 Resp 12 05/10/19 10:00 BP 160/95 H 05/10/19 10:00 Pulse Ox 95 05/10/19 10:00 Weight - Most Recent: 102 lb 1.184 oz I&O - Last 24 hours: Intake & Output 05/09/19 05/10/19 05/10/19 22:59 06:59 14:59 Intake Total 780 1312 Output Total 1300 1200 400 Balance -520 112 -400 Lab Results - Last 24 hrs: Laboratory Results - last 24 hr 05/10/19 Range/Units 05:38 Sodium 140 (140-148) mmol/L Potassium 3.7 (3.6-5.2) mmol/L Chloride 107 (100-108) mmol/L Carbon Dioxide 27 (21-32) mmol/L Anion Gap 5.7 (5.0-14.0) mmol/L BUN 5 L (7-18) mg/dL Creatinine 0.4 L (0.6-1.0) mg/dL Est Cr Clr Drug Dosing 127.08 mL/min Estimated GFR (MDRD) > 60 (>60) Glucose 86 (74-106) mg/dL Calcium 7.9 L (8.5-10.1) mg/dL Magnesium 1.6 L (1.8-2.4) mg/dL COTY Results - Last 24 hrs: Microbiology 05/08/19 09:14 Urine Culture - Final Urine, Clean Catch MIXED POSITIVE CRISTAL DAY 2 Med Orders - Current: Current Medications Acetaminophen (Tylenol) 650 mg PO Q4H PRN PRN Reason: Pain (Mild 1-3)/fever Last Admin: 05/09/19 09:51 Dose: 650 mg Acetaminophen (Tylenol Extra Strength) 1,000 mg PO TID [facility] Last Admin: 05/10/19 09:10 Dose: 1,000 mg Lidocaine HCl 60 ml/ Al (Hydroxide/Mg Hydroxide 360 ml) 0 ml PO TIDAC [facility] Last Admin: 05/10/19 09:15 Dose: 30 ml Dextrose (Glutose 15) 15 gm PO ONETIME PRN PRN Reason: Hypoglycemia Last Admin: 05/09/19 07:40 Dose: 15 gm Dextrose/Water (Dextrose 50% In Water) 50 ml IV ONETIME PRN PRN Reason: Hypoglycemia Last Admin: 05/10/19 05:48 Dose: 25 ml Ceftriaxone Sodium 1 gm/ (Sodium Chloride) 50 mls @ 100 mls/hr IV Q24H [facility] Last Admin: 05/10/19 10:23 Dose: 100 mls/hr Magnesium Sulfate 2 gm/ Premix 50 mls @ 25 mls/hr IV Q6H [facility] Stop: 05/10/19 16:59 Last Admin: 05/10/19 08:53 Dose: 25 mls/hr Insulin Glargine (Lantus Solostar) 30 units SUBCUT DAILY [facility] Last Admin: 05/10/19 09:17 Dose: 30 units Insulin Human Lispro (Humalog) 0 unit SUBCUT QIDACANDBED [facility]; Protocol Last Admin: 05/10/19 11:40 Dose: 2 units Lactobacillus Rhamnosus (Culturelle) 1 cap PO BID [facility] Last Admin: 05/10/19 09:13 Dose: 1 cap Magnesium Oxide (Magnesium Oxide) 400 mg PO BID [facility] Last Admin: 05/10/19 09:11 Dose: 400 mg Nicotine (Habitrol) 21 mg TRDERM DAILY [facility] Last Admin: 05/10/19 09:12 Dose: 21 mg Nicotine Polacrilex (Nicorelief) 2 mg CHEW Q1H PRN PRN Reason: Withdrawal Symptoms Ondansetron HCl (Zofran) 4 mg IV Q4H PRN PRN Reason: Nausea/Vomiting Last Admin: 05/09/19 14:11 Dose: 4 mg Oxycodone HCl (Oxycodone) 5 mg PO Q4H PRN PRN Reason: Pain (moderate 4-6) Last Admin: 05/10/19 09:10 Dose: 5 mg Pantoprazole Sodium (Protonix) 40 mg PO BIDAC [facility] Sodium Chloride (Saline Flush) 10 ml FLUSH ASDIRECTED PRN PRN Reason: Keep Vein Open Discontinued Medications Acetaminophen (Tylenol) 650 mg PO NOW ONE Stop: 05/07/19 22:36 Last Admin: 05/07/19 22:53 Dose: 650 mg Lidocaine HCl 60 ml/ Al (Hydroxide/Mg Hydroxide 360 ml) 0 ml PO TIDAC [facility] Last Admin: 05/10/19 10:38 Dose: Not Given Dextrose/Water (Dextrose 50% In Water) 50 ml IVPUSH ONETIME PRN PRN Reason: Blood Glucose Lactated Ringer's (Ringers, Lactated) 1,000 mls @ 1,000 mls/hr IV BOLUS ONE Stop: 05/07/19 22:26 Last Admin: 05/07/19 21:48 Dose: 1,000 mls/hr Dextrose/Sodium Chloride (Dextrose 5%-1/2 Ns) 1,000 mls @ 150 mls/hr IV .CONTINUOUS PRN PRN Reason: Blood Glucose Last Admin: 05/08/19 03:21 Dose: 150 mls/hr Insulin Human Regular 100 unit (/ Sodium Chloride) 100 mls @ 0.5 mls/hr IV TITRATE [facility]; Protocol Last Titration: 05/08/19 08:08 Dose: 3 unit/hr, 3 mls/hr Magnesium Sulfate (Magnesium Sulfate In Water Premix) 50 mls @ 25 mls/hr IV ONETIME PRN PRN Reason: low magnesium Last Admin: 05/08/19 00:18 Dose: 25 mls/hr Potassium Chloride 20 meq/ (Premix) 100 mls @ 50 mls/hr IV ONETIME ONE Stop: 05/08/19 01:29 Last Admin: 05/08/19 01:29 Dose: Not Given Potassium Chloride 20 meq/ (Premix) 100 mls @ 50 mls/hr IV Q2H PRN PRN Reason: Hypokalemia Potassium Chloride 20 meq/ (Premix) 100 mls @ 50 mls/hr IV Q2H PRN PRN Reason: Hypokalemia Sodium Chloride (Normal Saline) 2,000 mls @ 500 mls/hr IV .CONTINUOUS PRN PRN Reason: Blood Glucose Last Admin: 05/08/19 00:15 Dose: 500 mls/hr Sodium Phosphate 60 mmole/ (Sodium Chloride) 270 mls @ 62.5 mls/hr IV ONETIME PRN PRN Reason: Low phophorus Potassium Chloride 20 meq/ (Premix) 100 mls @ 50 mls/hr IV ONETIME PRN PRN Reason: If serum K between 3.5-3.9 Last Admin: 05/08/19 02:01 Dose: 50 mls/hr Sodium Chloride (Normal Saline) 1,000 mls @ 100 mls/hr IV ASDIRECTED [facility] Last Admin: 05/10/19 05:41 Dose: 100 mls/hr Insulin Glargine (Lantus Solostar) 50 units SUBCUT DAILY [facility] Last Admin: 05/09/19 19:30 Dose: Not Given Insulin Human Regular (Humulin R) 20 unit SUBCUT ONETIME ONE Stop: 05/07/19 21:47 Last Admin: 05/07/19 21:53 Dose: 20 units Lidocaine (Xylocaine-Mpf 2%) Confirm Administered Dose 5 ml .ROUTE .STK-MED ONE Stop: 05/10/19 06:34 Metoclopramide HCl (Reglan) 10 mg IVPUSH ONETIME ONE Stop: 05/07/19 21:27 Last Admin: 05/07/19 21:49 Dose: 10 mg Pantoprazole Sodium (Protonix Iv) 40 mg IVPUSH Q12H [facility] Last Admin: 05/10/19 04:13 Dose: 40 mg Potassium Chloride (Potassium Chloride Solution) 20 meq PO NOW PRN PRN Reason: Hypokalemia Potassium Chloride (Potassium Chloride Solution) 40 meq PO NOW PRN PRN Reason: Hypokalemia Potassium Chloride (Potassium Chloride Solution) 40 meq PO Q2H PRN PRN Reason: Hypokalemia Potassium Chloride (Klor-Con M20) 40 meq PO ONETIME ONE Stop: 05/08/19 17:42 Last Admin: 05/08/19 17:58 Dose: 40 meq Potassium Chloride (Klor-Con M20) 40 meq PO ONETIME ONE Stop: 05/09/19 09:01 Last Admin: 05/09/19 09:02 Dose: 40 meq Potassium Chloride (Klor-Con M20) 40 meq PO ONETIME ONE Stop: 05/09/19 17:01 Last Admin: 05/09/19 17:20 Dose: 40 meq Propofol (Diprivan 20 Ml) Confirm Administered Dose 200 mg .ROUTE .STK-MED ONE Stop: 05/10/19 06:34 - Exam General: Reports: Alert, Oriented, Cooperative, Mild Distress Lungs: Reports: Clear to Auscultation, Normal Respiratory Effort Cardiovascular: Reports: Regular Rate, Regular Rhythm, No Murmurs GI/Abdominal Exam: Soft, Non-Tender, No Organomegaly, No Distention
[2019-05-10] MEDS ORDERED: Pantoprazole 40 MG Tab.CR PO SCH (16:30)
--- NOTE | 2019-05-19 12:47 | OR ---
DATE OF PROCEDURE: 05/10/2019 SURGEON: Vladimir Israel MD PREOPERATIVE DIAGNOSES: Upper abdominal pain and heartburn. POSTOPERATIVE DIAGNOSES: 1. Multiple esophageal ulcers extending up from esophagogastric junction. 2. Diffuse gastritis. OPERATIVE PROCEDURE: Esophagogastroduodenoscopy with biopsies of antrum for CLOtest. ANESTHESIA: IV sedation. INDICATIONS FOR PROCEDURE: The patient was admitted with diabetic ketoacidosis. This has now cleared. The patient is complaining of some epigastric pain and heartburn. Plan is to proceed with upper GI endoscopy with biopsies as indicated. Potential risks including bleeding and perforation were discussed, and the patient wishes to proceed. DETAILS OF PROCEDURE: The patient was taken to the operating room and placed in the left lateral decubitus position. IV sedation was administered, after which the upper GI endoscope was passed orally through the length of the esophagus and into the stomach with retroflexion view of the fundus, thereafter through the pyloric channel, and into the proximal duodenum. Findings include normal hypopharynx, larynx, and upper esophageal sphincter. The upper esophagus was unremarkable. As one got into the mid esophagus, the patient had quite extensive ulcerations extending up from the esophagogastric junction. This was associated with a small hiatal hernia. Ulcer was presently covered with some fibrinous exudate with no active bleeding. No stricturing or plaquing were seen within the stomach. There was more or less diffuse edema and redness related to probably some bile exposure. The patient is a longstanding type 1 diabetic, probably has some element of gastroparesis resulting in a fair amount of accumulating of bile in the stomach. Otherwise, there were no ulcers or erosions. The pyloric channel and proximal duodenum were unremarkable. At this point, biopsy was obtained from the antrum and sent for CLOtest for H. pylori. We elected not to biopsy the esophageal ulcers to avoid bleeding, but she should have an early followup endoscopy to confirm that these are healed after medical management has been initiated. Vladimir Israel MD /[id number]
--- NOTE | 2019-05-19 12:53 | OR ---
DATE OF PROCEDURE: 05/10/2019 SURGEON: Vladimir Israel MD PREOPERATIVE DIAGNOSIS: Epigastric pain. POSTOPERATIVE DIAGNOSES: 1. Epigastric pain associated with severe gastroesophageal reflux disease with multiple esophageal ulcers extending up from esophagogastric junction. 2. Diffuse gastritis. OPERATIVE PROCEDURE: Esophagogastroduodenoscopy with antral biopsies for CLOtest. ANESTHESIA: IV sedation. INDICATION FOR PROCEDURE: This is a 48-year-old patient with type 1 diabetes who was admitted with DKA. After this had been corrected, she is complaining quite a bit in the way of epigastric pain and heartburn. The plan is to proceed with upper GI endoscopy with biopsies as indicated. Potential risks including bleeding and perforation were discussed and the patient wishes to proceed. DETAILS OF PROCEDURE: The patient was taken to the operating room and placed in a left lateral decubitus position. IV sedation was administered, after which the upper GI endoscope was passed orally through the length of the esophagus and into the stomach with retroflexion view of the fundus, thereafter through the pyloric channel into the proximal duodenum. Findings included normal hypopharynx, larynx, upper esophageal sphincter, and upper esophageal body. At this point, we extended toward the EG junction, and the patient was noted to have small hiatal hernia, but severe gastroesophageal reflux disease with multiple esophageal ulcers extending up from the esophagogastric junction. These were covered with fibrinous exudate at this point with no active bleeding. There was no stricturing, plaquing, or other signs of neoplasia. Within the stomach, there was more or less diffuse gastritis with the mucosa being edematous and somewhat reddened at all areas. The pyloric channel and proximal duodenum were unremarkable. At this point, biopsies were obtained from the antrum and sent for CLOtest for H. pylori. We did not biopsy the ulcers at the esophagogastric junction due to avoid bleeding problems and the patient will be instructed to have a followup endoscopy in roughly 1 month after full treatment to obtain biopsies and ascertain the extent of healing. The patient was taken to the recovery room in satisfactory condition. Vladimir Israel MD /[id number]
== END 2019-05-10 12:17 | disposition home or self-care (01) | DRG 638 ==
LOC: JP.ED 21:11 → JP.ICU 23:14
PROVIDERS: ADMIT Hospitalist; ATTEND Hospitalist
PROC: 0DB68ZX Excision of Stomach, Via Natural or Artificial Opening Endoscopic, Diagnostic (ICD-10-PCS; principal; 2019-05-10)
DX: E10.10 Type 1 diabetes mellitus with ketoacidosis without coma (principal); M86.9 Osteomyelitis, unspecified; N39.0 Urinary tract infection, site not specified; K22.10 Ulcer of esophagus without bleeding; F15.10 Other stimulant abuse, uncomplicated; K44.9 Diaphragmatic hernia without obstruction or gangrene; H54.7 Unspecified visual loss; M54.5 Low back pain; W10.9XXA Fall (on) (from) unspecified stairs and steps, initial encounter; F17.210 Nicotine dependence, cigarettes, uncomplicated; J44.9 Chronic obstructive pulmonary disease, unspecified; F41.9 Anxiety disorder, unspecified; F32.9 Major depressive disorder, single episode, unspecified; Z85.41 Personal history of malignant neoplasm of cervix uteri; Z85.3 Personal history of malignant neoplasm of breast; Z90.49 Acquired absence of other specified parts of digestive tract; Z90.710 Acquired absence of both cervix and uterus; Z90.10 Acquired absence of unspecified breast and nipple; Z91.19 Patient's noncompliance with other medical treatment and regimen; Y92.89 Other specified places as the place of occurrence of the external cause; Y93.89 Activity, other specified; Z88.5 Allergy status to narcotic agent
CPT/HCPCS: 36415; 72100; 80048; 80305-QW; 81001; 82009; 82800; 82962; 83036; 83605; 83735; 84100; 84132; 85025; 85027; 87081; 87086; 96361; 96374; 97162-GP; 99285-25; A9270-GY; C9113; J0696; J1815; J1815-GY; J2001; J2405; J2704; J2765; J3475; J3480; J7030; J7042; J7050; J7120

== ENCOUNTER 2019-05-19 06:09 | Day surgery (SDC) | payer MEDICAID ==
[2019-05-19] MEDS ORDERED: Lactated Ringers 1,000 ML IV SCH (06:30)
[2019-05-19] MEDS ORDERED: Propofol 200 MG/20 ML SDV ONE (07:12)
[2019-05-19] MEDS ORDERED: fentaNYL 100 MCG/2 ML SDV ONE (07:12)
[2019-05-19] MEDS ORDERED: Midazolam 1 MG/ML 2 ML SDV ONE (07:12)
[2019-05-19] MEDS ORDERED: Glycopyrrolate 0.2 MG/ML 2 ML SDV IVPUSH ONE (07:15)
[2019-05-19] MEDS ORDERED: Ketorolac 60 MG/2 ML SDV IM ONE (09:14)
[2019-05-19 10:53] VITALS: BP 112/74; PULSE 100
--- NOTE | 2019-05-25 14:32 | OR ---
DATE OF PROCEDURE: 05/19/2019 SURGEON: Vladimir Israel MD PREOPERATIVE DIAGNOSIS: Recently identified severe ulcerated esophagitis. POSTOPERATIVE DIAGNOSES: 1. Healing, but not entirely healed esophageal ulcers. 2. Large gastric bezoar. PROCEDURE PERFORMED: Esophagogastroduodenoscopy with biopsy of esophagogastric junction for histologic evaluation. ANESTHESIA: IV sedation. INDICATION FOR PROCEDURE: This is a 48-year-old who was recently admitted with diabetic ketoacidosis, but was also noted to be complaining quite a bit in the way of epigastric pain and heartburn. She underwent an upper endoscopy, which showed quite severe esophagitis with multiple esophageal ulcers extending well up into the esophagus. Biopsies at that time were not obtained. She has been maintained on proton pump inhibitor treatment since that time and is here for followup endoscopy just to ascertain whether or not there is adequate healing ongoing as well as obtain some baseline biopsies. Biopsies were not obtained previously due to the risk of bleeding. Potential risks of the procedure including bleeding and perforation were discussed, and the patient wishes to proceed. DETAILS OF PROCEDURE: The patient was taken to the operating room and placed in the left lateral decubitus position. IV sedation was administered, after which the upper GI endoscope was passed orally through the length of the esophagus into the stomach with retroflexion view of the fundus and thereafter through the pyloric channel into the junction of the 3rd and 4th portions of the duodenum. Findings included some persistent esophageal ulcers, although these were strikingly better and at this point were quite short and covered with a thin fibrinous exudate. Overall, the patient appeared to be healing satisfactorily. One additional finding was an interval development of a large gastric bezoar within the stomach containing a large mass of old vegetable-type matter along with some bile. Otherwise, the stomach was unremarkable other than some redness where the bezoar was up against the gastric wall. Pyloric channel and visualized portions of the duodenum were unremarkable. Following this, multiple biopsies were obtained from the esophagogastric junction and sent for histologic evaluation. Minimal bleeding from the biopsy sites was seen and the procedure was then concluded. At this point, we will have the patient continue the proton pump inhibitor use superintendent terminal. She would not be a candidate for Johnathan fundoplication due to the impaired gastric emptying as evidenced by the development of the bezoar, which was likely related to diabetic gastroparesis. The patient was counseled postprocedure regarding anti-bezoar diet, and we will give her a course of Zithromax 250 mg p.o. daily x5 days to facilitate evacuation of the bezoar. 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 The patient will be following with Jonathon Valdes CNP, at [facility] in roughly 2 weeks. Vladimir Israel MD /[id number]
== END 2019-05-19 09:35 | disposition home or self-care (01) ==
LOC: JP.SDS 06:09
PROVIDERS: ATTEND Surgery
DX: K22.10 Ulcer of esophagus without bleeding (principal); T18.2XXA Foreign body in stomach, initial encounter
CPT/HCPCS: 88305; 88312; J0456; J1885; J2250; J2704; J3010; J3490; J7050; J7120

== ENCOUNTER 2019-12-21 18:40 | Emergency (ER) | payer MEDICAID ==
[2019-12-21] MEDS ORDERED: Sodium Chloride 0.9% 1,000 ML IV ONE ×2 (19:17→20:27)
[2019-12-21] MEDS ORDERED: Sodium Chloride 0.9% 10 ML Syringe FLUSH PRN (19:17)
[2019-12-21] MEDS ORDERED: 50% Dextrose in Water 50 ML Syringe IVPUSH PRN ×2 (19:18→21:32)
[2019-12-21] MEDS ORDERED: Glucagon,Human Recombinant 1 MG Vial IM PRN ×2 (19:18→21:32)
[2019-12-21] MEDS ORDERED: Insulin Regular, Human 100 Units/ML 3 ML Vial SUBCUT ONE (19:18)
[2019-12-21] MEDS ORDERED: Ondansetron 4 MG/2 ML SDV IVPUSH ONE (19:19)
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
[2019-12-21 21:37] VITALS: BP 143/78; PULSE 109
[2019-12-21] MEDS ORDERED: Insulin Glargine,Human Rec. Analog 100 Units/ML 3 ML Pen SUBCUT SCH (21:48)
[2019-12-22] MEDS ORDERED: Insulin Glargine,Human Rec. Analog 100 Units/ML 3 ML Pen SUBCUT SCH (21:00)
== END 2019-12-21 22:13 | disposition home or self-care (01) ==
LOC: JP.ED 18:40
DX: E13.65 Other specified diabetes mellitus with hyperglycemia (principal); J44.9 Chronic obstructive pulmonary disease, unspecified; R00.0 Tachycardia, unspecified; F17.210 Nicotine dependence, cigarettes, uncomplicated; Z79.4 Long term (current) use of insulin; Z88.5 Allergy status to narcotic agent; Z90.49 Acquired absence of other specified parts of digestive tract; Z90.710 Acquired absence of both cervix and uterus
CPT/HCPCS: 36415; 80048; 80053; 83605; 85025; 96374; 99284; J1815; J2405; J7030

== ENCOUNTER 2020-08-07 08:05 | Emergency (ER) | payer MEDICAID ==
[2020-08-07 08:27] VITALS: BP 109/79; PULSE 99
[2020-08-07] MEDS ORDERED: Sodium Chloride 0.9% 1,000 ML IV ONE (08:47)
[2020-08-07] MEDS ORDERED: Ondansetron 4 MG/2 ML SDV IVPUSH ONE (08:47)
--- NOTE | 2020-08-07 08:53 | EDM.PDOC ---
ED HPI GENERAL MEDICAL PROBLEM - General Chief Complaint: Diabetic Complaint Stated Complaint: HIGH BLOOD SUGAR - VOMITTING Time Seen by Provider: 08/07/20 08:35 Source of Information: Reports: Patient History Limitations: Reports: No Limitations - History of Present Illness INITIAL COMMENTS - FREE TEXT/NARRATIVE: 49-year-old female, insulin-dependent diabetic who has poorly controlled glucose levels for baseline, has developed nausea vomiting and diarrhea since last evening, 4 days after her second Covid vaccination. She took 3 extra doses of insulin overnight because her glucose was running in the 400s, but when she was still nauseated and vomiting this morning she thought she should come in to avoid getting worse. She has had DKA in the past. She is not complaining of any significant pain, is not hyperventilating and actually looks fairly comfortable. Denies any fevers or chills. Claims that her glucose is running in the mid 400s. Onset: Sudden (Symptoms started fairly suddenly around 12 hours ago) Associated Symptoms: Reports: Malaise, Nausea/Vomiting, Weakness, Other (Diarrhea). Denies: Chest Pain, Cough, Fever/Chills, Headaches, Shortness of Breath - Related Data Allergies Allergy/AdvReac Type Severity Reaction Status Date / Time morphine AdvReac Confusion Verified 08/07/20 08:26 Home Meds: Home Meds Insulin Lispro [Humalog] 5 unit SQ TIDMEALS 10/30/17 [History] Pantoprazole [ProTONIX] 40 mg PO BIDAC #30 tab.cr 05/10/19 [Rx] Acetaminophen [Acetaminophen Extra Strength] 1,000 mg PO Q6H PRN 05/19/19 [History] Insulin Glarg,Human.Rec.Analog [Lantus Solostar] 56 unit SUBCUT BEDTIME 12/21/19 [History] Past Medical History HEENT History: Reports: None Respiratory History: Reports: Asthma, Bronchitis, Recurrent, COPD, Pneumonia, Recurrent Gastrointestinal History: Reports: Other (See Below) Other Gastrointestinal History: ulcers Genitourinary History: Reports: Pyelonephritis, UTI, Recurrent 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 Osteomyalitis Neurological History: Reports: Concussion, Head Trauma Psychiatric History: Reports: Anxiety, Depression Endocrine/Metabolic History: Reports: Diabetes, Type I Hematologic History: Reports: Other (See Below) Other Hematologic History: factor 5 Immunologic History: Reports: Other (See Below) Other Immunologic History: last chemo 2 years ago Oncologic (Cancer) History: Reports: Breast, Cervix Dermatologic History: Reports: Cellulitis, Other (See Below) Other Dermatologic History: recent staph infection on scalp. burn from heater on right ankle - Infectious Disease History Infectious Disease History: Reports: Chicken Pox - Past Surgical History HEENT Surgical History: Reports: None Respiratory Surgical History: Reports: None GI Surgical History: Reports: Appendectomy, Cholecystectomy, EGD Female Surgical History: Reports: Hysterectomy, Mastectomy Endocrine Surgical History: Reports: None Neurological Surgical History: Reports: Other (See Below) Musculoskeletal Surgical History: Reports: None Oncologic Surgical History: Reports: Mastectomy Dermatological Surgical History: Reports: Skin Graft Social & Family History - Family History : Reports: Renal Disease/Insufficiency - Tobacco Use Tobacco Use Status *Q: Current Every Day Tobacco User Years of Tobacco use: 2 Packs/Tins Daily: 0.2 - Caffeine Use Caffeine Use: Reports: Coffee, Soda - Recreational Drug Use Recreational Drug Type: Reports: Marijuana/Hashish ED ROS GENERAL - Review of Systems Review Of Systems: See Below Constitutional: Reports: Malaise, Decreased Appetite. Denies: Fever, Chills HEENT: Reports: Other (Recent dental or neck infection, finished antibiotics and is resolved) Respiratory: Denies: Shortness of Breath Cardiovascular: Denies: Chest Pain, Palpitations GI/Abdominal: Reports: Diarrhea, Nausea, Vomiting. Denies: Abdominal Pain : Reports: No Symptoms Skin: Reports: Other (Chronic excoriations and scarring of the lower extremities) Neurological: Denies: Headache ED EXAM GENERAL NO PERIP PULSE - Physical Exam Exam: See Below Exam Limited By: No Limitations General Appearance: Alert, No Apparent Distress Eye Exam: Bilateral Eye: EOMI, Normal Inspection (No jaundice, good hydration) Throat/Mouth: Other (Advanced dental decay but good oral moisture) Head: Atraumatic Respiratory/Chest: No Respiratory Distress, Lungs Clear Cardiovascular: Regular Rate, Rhythm. No: Tachycardia GI/Abdominal: Normal Bowel Sounds, Soft, Non-Tender Extremities: No: Pedal Edema Neurological: Alert, Oriented Psychiatric: Normal Affect, Normal Mood Skin Exam: Warm, Dry Course - Vital Signs Last Recorded V/S: Last Vital Signs Temp 98.1 F 06/05/21 08:33 Pulse 99 08/07/20 08:33 Resp 18 08/07/20 08:33 BP 109/79 08/07/20 08:33 Pulse Ox 100 08/07/20 08:33 - Orders/Labs/Meds Labs: Laboratory Tests 08/07/20 08/07/20 08/07/20 Range/Units 08:50 08:50 08:50 WBC 10.5 (4.5-11.0) K/uL RBC 5.50 (3.30-5.50) M/uL Hgb 15.3 H (12.0-15.0) g/dL Hct 45.9 (36.0-48.0) % MCV 84 (80-98) fL MCH 28 (27-31) pg MCHC 33 (32-36) % Plt Count 333 (150-400) K/uL Neut % (Auto) 84.4 H (36-66) % Lymph % (Auto) 10.8 L (24-44) % Pepin % (Auto) 4.5 (2-6) % Eos % (Auto) 0.1 L (2-4) % Baso % (Auto) 0.2 (0-1) % Sodium 129 L (140-148) mmol/L Potassium 5.2 (3.6-5.2) mmol/L Chloride 90 L (100-108) mmol/L Carbon Dioxide 18 L (21-32) mmol/L Anion Gap 26.2 H (5.0-14.0) mmol/L BUN 24 H (7-18) mg/dL Creatinine 1.3 H (0.6-1.0) mg/dL Est Cr Clr Drug Dosing 41.86 mL/min Estimated GFR (MDRD) 44 L (>60) Glucose 509 H* (74-106) mg/dL Calcium 9.3 (8.5-10.1) mg/dL Total Bilirubin 0.6 (0.2-1.0) mg/dL AST 10 L (15-37) U/L ALT 25 (12-78) U/L Alkaline Phosphatase 129 H (46-116) U/L Total Protein 7.1 (6.4-8.2) g/dL Albumin 3.6 (3.4-5.0) g/dL Globulin 3.5 (2.3-3.5) g/dL Albumin/Globulin Ratio 1.0 L (1.2-2.2) Ketones Small H (NEGATIVE) Meds: Medications Discontinued Medications Generic Name Dose Route Start Last Admin Trade Name Sandrine PRN Reason Stop Dose Admin Sodium Chloride 1,000 mls @ 999 mls/hr 08/07/20 08:47 08/07/20 08:59 Normal Saline IV 08/07/20 09:47 999 mls/hr ONETIME ONE Administration Insulin Human Regular 10 unit 08/07/20 09:21 08/07/20 09:27 Insulin Regular, Human 100 Units/Ml 3 Ml Vial IVPUSH 08/07/20 09:22 10 unit ONETIME ONE Administration Ondansetron HCl 4 mg 08/07/20 08:47 08/07/20 09:00 Ondansetron 4 Mg/2 Ml Sdv IVPUSH 08/07/20 08:48 4 mg ONETIME ONE Administration - Re-Assessments/Exams Free Text/Narrative Re-Assessment/Exam: 08/07/20 08:51 Patient does not appear to be in DKA at this time but is high risk. 1 L of normal saline will be bolused, CBC CMP and serum ketones obtained. She may need some additional IV insulin, 4 mg of IV Zofran was ordered, and she is allowed to drink ice water during treatment. I think we will be able to avoid hospitalization. 08/07/20 09:30 Glucose was 506 so 10 units of IV insulin was given. Serum ketones were small, white count was normal, CO2 18. 08/07/20 09:31 Anion gap 26, creatinine 1.3. Patient had no further vomiting while in the emergency room. Departure - Departure Time of Disposition: :51 Disposition: Home, Self-Care 01 Clinical Impression: Hyperglycemia, Dehydration Nausea & vomiting Qualifiers: Vomiting type: unspecified Vomiting Intractability: non-intractable Qualified Code(s): R11.2 - Nausea with vomiting, unspecified - Discharge Information Instructions: Nausea and Vomiting, Adult, [id number] Referrals: Jonathon Valdes, STUDENT SERVICES DIRECTOR [Primary Care Provider] - Forms: ED Department Discharge Care Plan Goals: Try to stay hydrated with frequent small doses of water and increase activity and diet as tolerated. Monitoring blood glucose over the next 12 to 24 hours will be helpful along with extra insulin if needed. Return anytime if you feel you are worsening or need further emergency treatment. Use Zofran as needed for persistent nausea and vomiting. Sepsis Event Note (ED) - Evaluation Sepsis Screening Result: No Definite Risk - Focused Exam Vital Signs: Vital Signs Temp Pulse Resp BP Pulse Ox 08/07/20 08:33 98.1 F 99 18 109/79 100 08/07/20 08:26 98.1 F 99 18 109/79 100
[2020-08-07] MEDS ORDERED: Insulin Regular, Human 100 Units/ML 3 ML Vial IVPUSH ONE (09:21)
== END 2020-08-07 09:52 | disposition home or self-care (01) ==
LOC: JP.ED 08:05
DX: E10.65 Type 1 diabetes mellitus with hyperglycemia (principal); R11.2 Nausea with vomiting, unspecified; E86.0 Dehydration; J44.9 Chronic obstructive pulmonary disease, unspecified; Z88.5 Allergy status to narcotic agent; Z79.899 Other long term (current) drug therapy
CPT/HCPCS: 36415; 80053; 82009; 85025; 96374; 99284; J1815; J2405; J7030

== ENCOUNTER 2020-12-13 18:35 | Emergency (ER) | payer MEDICAID ==
[2020-12-13 19:12] VITALS: BP 119/89; PULSE 96
[2020-12-13] MEDS ORDERED: Proparacaine 0.5% Ophth Soln 15 ML Bottle EYELF ONE (19:16)
[2020-12-13] MEDS ORDERED: Ketorolac 30 MG/ML SDV IVPUSH ONE (20:03)
[2020-12-13] MEDS ORDERED: HYDROmorphone 0.5 MG/0.5 ML Syringe IVPUSH ONE (20:03)
[2020-12-13] MEDS ORDERED: Ondansetron 4 MG/2 ML SDV IVPUSH ONE (20:09)
[2020-12-13] MEDS ORDERED: Sodium Chloride 0.9% 1,000 ML IV SCH (20:15)
--- NOTE | 2020-12-13 20:23 | EDM.PDOC ---
ED HPI GENERAL MEDICAL PROBLEM - General Chief Complaint: Eye Problems Stated Complaint: LT EYE ISSUE Time Seen by Provider: 12/13/20 19:10 Source of Information: Reports: Patient History Limitations: Reports: No Limitations - History of Present Illness INITIAL COMMENTS - FREE TEXT/NARRATIVE: 50-year-old female who 3 days ago was putting some items up in a cupboard when some dust fell into her left eye. Since that time she has had an increase in swelling, purulent drainage, pain and discomfort around the left eye. She went into the urgent care clinic and was sent to the emergency room with concerns of preseptal cellulitis. She is not febrile, her symptoms and findings are very specific to the left eye. She is diabetic under somewhat poor control. Onset: Gradual Duration: Day(s): (3 days of symptoms) Location: Reports: Other (Periorbital left side) Improves with: Reports: Other (Topical proparacaine does improve her pain) Worsens with: Reports: Other (Worse with eye movement or palpation around the eye) Associated Symptoms: Reports: Headaches Left Eye Pain Score (Numeric/FACES): 10 - Related Data Allergies Allergy/AdvReac Type Severity Reaction Status Date / Time morphine AdvReac Confusion Verified 12/13/20 18:57 Home Meds: Home Meds Insulin Lispro [Humalog] 5 unit SQ TIDMEALS 10/30/17 [History] Pantoprazole [ProTONIX] 40 mg PO BIDAC #30 tab.cr 05/10/19 [Rx] Acetaminophen [Acetaminophen Extra Strength] 1,000 mg PO Q6H PRN 05/19/19 [History] Insulin Glarg,Human.Rec.Analog [Lantus Solostar] 56 unit SUBCUT BEDTIME 12/21/19 [History] Past Medical History HEENT History: Reports: None Respiratory History: Reports: Asthma, Bronchitis, Recurrent, COPD, Pneumonia, Recurrent Gastrointestinal History: Reports: Other (See Below) Other Gastrointestinal History: ulcers Genitourinary History: Reports: Pyelonephritis, UTI, 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 Osteomyalitis Neurological History: Reports: Concussion, Head Trauma Psychiatric History: Reports: Anxiety, Depression Endocrine/Metabolic History: Reports: Diabetes, Type I Hematologic History: Reports: Other (See Below) Other Hematologic History: factor 5 Immunologic History: Reports: Other (See Below) Other Immunologic History: last chemo 2 years ago Oncologic (Cancer) History: Reports: Breast, Cervix Dermatologic History: Reports: Cellulitis, Other (See Below) Other Dermatologic History: recent staph infection on scalp. burn from heater on right ankle - Infectious Disease History Infectious Disease History: Reports: Chicken Pox - Past Surgical History HEENT Surgical History: Reports: None Respiratory Surgical History: Reports: None GI Surgical History: Reports: Appendectomy, Cholecystectomy, EGD Female Surgical History: Reports: Hysterectomy, Mastectomy Endocrine Surgical History: Reports: None Neurological Surgical History: Reports: Other (See Below) Musculoskeletal Surgical History: Reports: None Oncologic Surgical History: Reports: Mastectomy Dermatological Surgical History: Reports: Skin Graft Social & Family History - Family History : Reports: Renal Disease/Insufficiency - Tobacco Use Tobacco Use Status *Q: Current Every Day Tobacco User Years of Tobacco use: 30 Packs/Tins Daily: 0.5 - Caffeine Use Caffeine Use: Reports: Coffee, Energy Drinks, Soda, Tea - Recreational Drug Use Recreational Drug Use: Yes Recreational Drug Type: Reports: Marijuana/Hashish Recreational Drug Use Frequency: Daily ED ROS GENERAL - Review of Systems Review Of Systems: See Below Constitutional: Denies: Fever, Chills HEENT: Reports: Eye Discharge (Purulent left eye discharge), Eye Pain, Vision Change (Some blurry vision of the left eye) Respiratory: Denies: Shortness of Breath Cardiovascular: Denies: Chest Pain GI/Abdominal: Denies: Nausea, Vomiting Skin: Reports: Erythema (Erythema and swelling around the left eye) Neurological: Reports: Headache ED EXAM GENERAL W FULL EYE - Physical Exam Exam: See Below Exam Limited By: No Limitations General Appearance: Alert, No Apparent Distress (Uncomfortable but not distres sed) Eyelids: Left: Edema, Erythema, Other Conjunctiva & Sclera: Left: Conjunctival Edema, Discharge, Injected Cornea Exam: Bilateral: Normal Appearance Extraocular Movements: Left: Intact (Ocular movements are intact but it is painful to look down) Pupils: Normal Accommodation Pupillary Size: Bilateral: 3 mm Pupillary Reaction: Bilateral: Brisk Head: Atraumatic, Other (There is swelling and erythema in the periorbital area of the left eye onto the left cheek) Respiratory/Chest: No Respiratory Distress Cardiovascular: Regular Rate, Rhythm. No: Tachycardia Course - Vital Signs Last Recorded V/S: Last Vital Signs Temp 96.4 F L 12/13/20 19:01 Pulse 96 12/13/20 19:01 Resp 16 12/13/20 19:01 BP 119/89 12/13/20 19:01 Pulse Ox 96 12/13/20 19:01 - Orders/Labs/Meds Labs: Laboratory Tests 12/13/20 12/13/20 12/13/20 Range/Units 19:27 19:27 19:27 WBC 9.3 (4.5-11.0) K/uL RBC 4.83 (3.30-5.50) M/uL Hgb 13.8 (12.0-15.0) g/dL Hct 41.3 (36.0-48.0) % MCV 86 (80-98) fL MCH 29 (27-31) pg MCHC 33 (32-36) % Plt Count 368 (150-400) K/uL Neut % (Auto) 63.0 (36-66) % Lymph % (Auto) 26.1 (24-44) % Day % (Auto) 8.1 H (2-6) % Eos % (Auto) 2.6 (2-4) % Baso % (Auto) 0.2 (0-1) % Sodium 138 L (140-148) mmol/L Potassium 4.7 (3.6-5.2) mmol/L Chloride 102 (100-108) mmol/L Carbon Dioxide 29 (21-32) mmol/L Anion Gap 11.7 (5.0-14.0) mmol/L BUN 13 (7-18) mg/dL Creatinine 0.8 (0.6-1.0) mg/dL Est Cr Clr Drug Dosing 67.28 mL/min Estimated GFR (MDRD) > 60 (>60) Glucose 215 H (74-106) mg/dL Calcium 8.9 (8.5-10.1) mg/dL C-Reactive Protein 0.39 H (0.0-0.3) mg/dL Meds: Medications Discontinued Medications Generic Name Dose Route Start Last Admin Trade Name Freq PRN Reason Stop Dose Admin Hydromorphone HCl 0.5 mg 12/13/20 20:03 12/13/20 20:16 Hydromorphone 0.5 Mg/0.5 Ml Syringe IVPUSH 12/13/20 20:04 0.5 mg ONETIME ONE Administration Sodium Chloride 1,000 mls @ 1,000 mls/hr 12/13/20 20:15 Normal Saline IV [facility]ED [facility] Ketorolac Tromethamine 30 mg 12/13/20 20:03 12/13/20 20:15 Ketorolac 30 Mg/Ml Sdv IVPUSH 12/13/20 20:04 30 mg ONETIME ONE Administration Moxifloxacin HCl 1 ml 12/13/20 20:27 12/13/20 22:01 Moxifloxacin 0.5% Ophth Soln 3 Ml Bottle EYELF 12/13/20 20:28 1 drop ONETIME ONE Administration Ondansetron HCl 4 mg 12/13/20 20:09 12/13/20 20:15 Ondansetron 4 Mg/2 Ml Sdv IVPUSH 12/13/20 20:10 4 mg ONETIME ONE Administration Proparacaine HCl 1 ml 12/13/20 19:16 12/13/20 20:15 Proparacaine 0.5% Ophth Soln 15 Ml Bottle EYELF 12/13/20 19:17 1 drop ONETIME ONE Administration - Re-Assessments/Exams Free Text/Narrative Re-Assessment/Exam: 12/13/20 20:24 On arrival proparacaine anesthesia was used in the left eye which was helpful. Fluorescein staining of the cornea showed no obvious abnormality but she had significant conjunctival edema, erythema, and purulent drainage. The lower eyelid especially laterally was extremely tender to palpation. Attempt was used to invert the eyelids but they were too swollen to examine the underlying aspect. White count was normal, CRP is minimally elevated at 0.39, and electrolytes are normal so a CT the left orbit was ordered without contrast per radiology protocol. 12/13/20 22:36 IMPRESSION: 1. Left periorbital fat stranding without focal fluid collection. Differential diagnosis would include cellulitis or nonspecific edema. No intraconal involvement. 2. 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 Patient was placed on Vigamox eyedrops and oral Augmentin. She will be re checked at the insecticide expert office tomorrow. She was also given 10 hydrocodone for extra pain control. 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 Take Augmentin with food if possible. Ibuprofen or naproxen will help with pain, add stronger pain medications if needed. See if you can get worked in to Dr. Goodwin's eye clinic tomorrow for follow-up. Sepsis Event Note (ED) - Evaluation Sepsis Screening Result: No Definite Risk - Focused Exam Vital Signs: Vital Signs Temp Pulse Resp BP Pulse Ox 12/13/20 19:01 96.4 F L 96 16 119/89 96
[2020-12-13] MEDS ORDERED: Moxifloxacin 0.5% Ophth Soln 3 ML Bottle EYELF ONE (20:27)
--- NOTE | 2020-12-13 21:46 | CRLCT ---
For Patients: As a result of the Cures Act, medical imaging exams and procedure reports are released immediately into your electronic medical record. You may view this report before your referring provider. If you have questions, please contact your health care provider. INDICATION: Left eye swelling TECHNIQUE: CT maxillofacial without contrast. COMPARISON: None FINDINGS: Facial bones: No evidence of fracture mild expansion of the left frontal bone in the supraorbital region with some hazy internal density. This is nonspecific although question fibrous dysplasia. Orbits and globes: Unremarkable. Globes are intact. No sign of intraorbital hemorrhage or emphysema. Sinuses: No acute or significant findings. Soft tissues: Left periorbital fat stranding without focal fluid collection for the noncontrast technique. IMPRESSION: 1. Left periorbital fat stranding without focal fluid collection. Differential diagnosis would include cellulitis or nonspecific edema. No intraconal involvement. 2. 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 Please note that all CT scans at this facility use dose modulation, iterative reconstruction, and/or weight-based dosing when appropriate to reduce radiation dose to as low as reasonably achievable. Dictated by Maco Drummond MD @ 12/13/2020 9:45:02 PM (Electronically Signed)
== END 2020-12-13 22:06 | disposition home or self-care (01) ==
LOC: JP.ED 18:35
DX: L03.213 Periorbital cellulitis (principal); H10.022 Other mucopurulent conjunctivitis, left eye; E10.9 Type 1 diabetes mellitus without complications; J44.9 Chronic obstructive pulmonary disease, unspecified; Z79.899 Other long term (current) drug therapy; Z72.0 Tobacco use; Z88.5 Allergy status to narcotic agent
CPT/HCPCS: 36415; 70480; 80048; 85025; 86140; 96374; 96375; 99284; A9270; J1170; J1885; J2405

== ENCOUNTER 2021-03-17 18:02 | Emergency (ER) | payer MEDICAID ==
[2021-03-17] MEDS ORDERED: Sodium Chloride 0.9% 10 ML Syringe FLUSH PRN ×2 (18:39→19:12)
[2021-03-17] MEDS ORDERED: Ondansetron 4 MG/2 ML SDV IVPUSH ONE (18:39)
[2021-03-17] MEDS ORDERED: Sodium Chloride 0.9% 1,000 ML IV SCH ×3 (18:45→21:15)
[2021-03-17] MEDS ORDERED: Insulin Regular in 0.9 % NACL 100 ML IV SCH (19:15)
[2021-03-17 19:24] LABS: CORONAVIRUS COVID-19 NAA POSITIVE (NEGATIVE)
[2021-03-17] MEDS ORDERED: D5 1/2 NS w/ 20 mEq/L KCl 1,000 ML IV SCH (21:15)
[2021-03-17 21:59] VITALS: BP 126/79; PULSE 99
== END 2021-03-17 22:50 ==
LOC: JP.ED 18:02
DX: U07.1 COVID-19 (principal); E86.0 Dehydration; E10.10 Type 1 diabetes mellitus with ketoacidosis without coma; E10.65 Type 1 diabetes mellitus with hyperglycemia; J44.9 Chronic obstructive pulmonary disease, unspecified; Z88.5 Allergy status to narcotic agent
CPT/HCPCS: 0241U; 36415; 36600; 71045; 80053; 81001; 82009; 82803; 82947; 83605; 83735; 84100; 85025; 87040; 96365; 96375; 99285; J1815; J2405; J3480; J7030

== ENCOUNTER 2021-11-15 04:48 | Emergency (ER) | payer MEDICAID ==
[2021-11-15] MEDS ORDERED: Sodium Chloride 0.9% 10 ML Syringe FLUSH PRN (05:07)
[2021-11-15] MEDS ORDERED: Ondansetron 4 MG/2 ML SDV IVPUSH SCH (05:15)
[2021-11-15] MEDS ORDERED: Sodium Chloride 0.9% 1,000 ML IV SCH ×2 (05:15→09:00)
[2021-11-15] MEDS ORDERED: 50% Dextrose in Water 50 ML Syringe IVPUSH PRN (05:37)
[2021-11-15] MEDS ORDERED: Insulin Regular in 0.9 % NACL 100 ML IV SCH (05:45)
[2021-11-15 05:50] LABS: ESTIMATED GFR 42 mL/min (>60)
[2021-11-15] MEDS: Sodium Chloride 0.9% 1,000 ML IV SCH ×2 (07:04→07:47)
[2021-11-15] MEDS ORDERED: Metoclopramide 10 MG/2 ML SDV IVPUSH ONE (07:51)
[2021-11-15 09:10] VITALS: BP 108/66; PULSE 96
== END 2021-11-15 10:00 | disposition other institution (70) ==
LOC: JP.ED 04:48
DX: E11.10 Type 2 diabetes mellitus with ketoacidosis without coma (principal); E86.0 Dehydration; E87.1 Hypo-osmolality and hyponatremia; J44.9 Chronic obstructive pulmonary disease, unspecified; H10.021 Other mucopurulent conjunctivitis, right eye; F60.3 Borderline personality disorder; Z88.6 Allergy status to analgesic agent; Z88.8 Allergy status to other drugs, medicaments and biological substances; Z79.4 Long term (current) use of insulin; Z90.49 Acquired absence of other specified parts of digestive tract; Z90.710 Acquired absence of both cervix and uterus; Z20.822 Contact with and (suspected) exposure to COVID-19
CPT/HCPCS: 36415; 80048; 80053; 80305; 81001; 82009; 82803; 82947; 83690; 83735; 84100; 84132; 85025; 87635; 96361; 96374; 96375; 99285; J1815; J2405; J2765; J3490; J7030; U0002

== ENCOUNTER 2023-06-06 09:54 | Inpatient (IN) | payer MEDICAID ==
[2023-06-06 11:27] LABS: BASOPHILS ABSOLUTE AUTO 0.05 K/uL (0.00-0.10); BASOPHILS PERCENT AUTO 0.5 % (0.1-1.3); EOSINOPHILS ABSOLUTE AUTO 0.01 K/uL (0.00-0.40); EOSINOPHILS PERCENT AUTO 0.1 % (0.0-5.4); HEMOGLOBIN 16.5 g/dL (11.2-15.5); IMMATURE GRAN ABSOLUTE AUTO 0.05 K/uL (0.00-0.23); IMMATURE GRAN PERCENT AUTO 0.5 % (0.0-0.7); LYMPHOCYTES ABSOLUTE AUTO 1.12 K/uL (0.8-3.3); LYMPHOCYTES PERCENT AUTO 10.4 % (11.4-47.7); MEAN CORPUSCULAR HEMOGLOBIN 28.3 pg (31.6-35.5); MEAN CORPUSCULAR HGB CONC 33.7 g/dL (31.6-35.5); MONOCYTES ABSOLUTE AUTO 0.44 K/uL (0.20-0.90); MONOCYTES PERCENT AUTO 4.1 % (3.3-12.6); NEUTROPHILS ABSOLUTE AUTO 9.09 K/uL (1.0-7.6); NEUTROPHILS PERCENT AUTO 84.4 % (40.0-78.1); PLATELET COUNT,PLT 385 K/uL (130-375); RED BLOOD CELL COUNT 5.83 M/uL (3.77-5.24); WHITE BLOOD CELL COUNT,WBC 10.8 K/uL (3.2-11.0)
[2023-06-06] MEDS: Sodium Chloride 0.9% 1,000 ML IV ONE (11:34)
[2023-06-06] MEDS: Ondansetron 4 MG/2 ML SDV IVPUSH ONE (11:34)
[2023-06-06 11:37] LABS: APPEARANCE,URINE CLEAR (CLEAR); BILIRUBIN,URINE SMALL (NEGATIVE); COLOR,URINE YELLOW (YELLOW); GLUCOSE,URINE 500 mg/dL (NEGATIVE); KETONES,URINE 80 mg/dL (NEGATIVE); LEUKOCYTE ESTERASE,URINE NEGATIVE (NEGATIVE); NITRITE,URINE NEGATIVE (NEGATIVE); OCCULT BLOOD,URINE NEGATIVE (NEGATIVE); PH,URINE 5.5 (5.0-8.0); PROTEIN,URINE NEGATIVE (NEGATIVE); UROBILINOGEN,URINE 0.2 EU/dL (0.2-1.0)
[2023-06-06 11:39] LABS: A/G RATIO 1.1 (1.2-2.2); ALANINE AMINOTRANSFERASE,ALT 24 U/L (12-78); ALBUMIN 4.3 g/dL (3.4-5.0); ALKALINE PHOSPHATASE 147 U/L (46-116); ASPARTATE AMNIOTRANSFERASE,AST 12 U/L (15-37); BILIRUBIN TOTAL 0.6 mg/dL (0.2-1.0); BLOOD UREA NITROGEN,BUN 39 mg/dL (7-18); CALCIUM 10.5 mg/dL (8.5-10.1); CARBON DIOXIDE,CO2 17 mmol/L (21-32); CHLORIDE,CL 89 mmol/L (100-108); CREATININE 1.5 mg/dL (0.6-1.0); EST CRCL DRUG DOSING (CG) 35.09 mL/min; ESTIMATED GFR 42 mL/min (>60); POTASSIUM,K 5.3 mmol/L (3.6-5.2); PROTEIN TOTAL,TP 8.2 g/dL (6.4-8.2); SODIUM,NA 128 mmol/L (140-148)
[2023-06-06 11:40] LABS: ANION GAP 27.3 mmol/L (5.0-14.0)
[2023-06-06 11:42] LABS: GLUCOSE RANDOM 592 mg/dL (74-106)
[2023-06-06 11:45] LABS: AMORPHOUS SEDIMENT,URINE NOT SEEN; BACTERIA,URINE MODERATE; EPITHELIAL CELLS,URINE FEW; MUCUS,URINE FEW; RBC,URINE 0-5 (0-5)
[2023-06-06 11:46] LABS: AMPHETAMINES SCREEN, URINE NEGATIVE (NEGATIVE); BARBITURATE SCREEN,URINE NEGATIVE (NEGATIVE); BENZODIAZEPINES SCREEN,URINE NEGATIVE (NEGATIVE); METHADONE SCREEN, URINE NEGATIVE (NEGATIVE); METHAMPHETAMINES SCREEN, URINE NEGATIVE (NEGATIVE); OXYCODONE SCREEN,URINE NEGATIVE (NEGATIVE); PROPOXYPHENE SCREEN,URINE NEGATIVE (NEGATIVE); THC SCREEN,URINE 50 NG/ML NEGATIVE (NEGATIVE)
[2023-06-06] MEDS ORDERED: 50% Dextrose in Water 50 ML Syringe IVPUSH PRN (12:15)
[2023-06-06] MEDS ORDERED: Glucagon,Human Recombinant 1 MG Vial IM PRN (12:15)
[2023-06-06] MEDS: Insulin Regular, Human 100 Units/ML 3 ML Vial IVPUSH ONE (12:30)
[2023-06-06] MEDS: Sodium Chloride 0.9% 1,000 ML IV SCH ×2 (12:30→15:00)
[2023-06-06] MEDS: Insulin Regular in 0.9 % NACL 100 ML IV SCH ×2 (12:34→23:03)
[2023-06-06] MEDS ORDERED: Sennosides/Docusate Sodium 50-8.6 MG Tab PO PRN (14:03)
[2023-06-06] MEDS ORDERED: Acetaminophen 325 MG Tab PO PRN (14:03)
[2023-06-06] MEDS ORDERED: Ondansetron 4 MG/2 ML SDV IV PRN (14:03)
[2023-06-06] MEDS ORDERED: Magnesium Hydroxide 400 MG/5 ML Susp 30 ML Cup PO PRN (14:03)
[2023-06-06 14:09] LABS: CORONAVIRUS COVID-19 NAA NEGATIVE (NEGATIVE); INFLUENZA A NAA NEGATIVE (NEGATIVE); INFLUENZA B NAA NEGATIVE (NEGATIVE); RESPIRATORY SYNCYTIAL VIR NAA NEGATIVE (NEGATIVE)
[2023-06-06 17:08] LABS: BLOOD UREA NITROGEN,BUN 38 mg/dL (7-18); CALCIUM 8.9 mg/dL (8.5-10.1); CARBON DIOXIDE,CO2 21 mmol/L (21-32); CHLORIDE,CL 101 mmol/L (100-108); CREATININE 1.3 mg/dL (0.6-1.0); ESTIMATED GFR 50 mL/min (>60); GLUCOSE RANDOM 345 mg/dL (74-106); POTASSIUM,K 4.7 mmol/L (3.6-5.2); SODIUM,NA 137 mmol/L (140-148)
[2023-06-06 17:10] LABS: ANION GAP 19.7 mmol/L (5.0-14.0)
[2023-06-06 21:11] LABS: BLOOD UREA NITROGEN,BUN 34 mg/dL (7-18); CALCIUM 8.2 mg/dL (8.5-10.1); CARBON DIOXIDE,CO2 24 mmol/L (21-32); CHLORIDE,CL 100 mmol/L (100-108); CREATININE 1.2 mg/dL (0.6-1.0); ESTIMATED GFR 55 mL/min (>60); SODIUM,NA 134 mmol/L (140-148)
[2023-06-06 21:13] LABS: GLUCOSE RANDOM 427 mg/dL (74-106)
[2023-06-06] MEDS: Insulin Lispro 100 Unit/ML 3 ML KwikPen SUBCUT SCH (21:19)
[2023-06-06] MEDS: Pantoprazole 40 MG Tab.CR PO SCH (21:35)
[2023-06-06] MEDS: Insulin Glargine,Human Rec. Analog 100 Units/ML 3 ML Pen SUBCUT SCH (21:35)
[2023-06-06] MEDS: Nicotine 21 MG/24 Hr Patch TRDERM SCH (21:35)
[2023-06-07 01:21] LABS: BLOOD UREA NITROGEN,BUN 30 mg/dL (7-18); CALCIUM 8.2 mg/dL (8.5-10.1); CARBON DIOXIDE,CO2 24 mmol/L (21-32); CHLORIDE,CL 105 mmol/L (100-108); CREATININE 0.9 mg/dL (0.6-1.0); ESTIMATED GFR 77 mL/min (>60); GLUCOSE RANDOM 224 mg/dL (74-106); POTASSIUM,K 3.6 mmol/L (3.6-5.2); SODIUM,NA 136 mmol/L (140-148)
[2023-06-07 01:32] LABS: ANION GAP 10.6 mmol/L (5.0-14.0)
[2023-06-07] MEDS: Ondansetron 4 MG Tab.DIS PO PRN (02:16)
[2023-06-07 05:42] LABS: HEMATOCRIT 33.8 % (34.3-46.0); HEMOGLOBIN 11.6 g/dL (11.2-15.5); MEAN CORPUSCULAR HEMOGLOBIN 28.4 pg (31.6-35.5); MEAN CORPUSCULAR HGB CONC 34.3 g/dL (31.6-35.5); MEAN CORPUSCULAR VOLUME 82.6 fL (81.4-99.0); RED BLOOD CELL COUNT 4.09 M/uL (3.77-5.24); WHITE BLOOD CELL COUNT,WBC 12.3 K/uL (3.2-11.0)
[2023-06-07 05:55] LABS: BLOOD UREA NITROGEN,BUN 25 mg/dL (7-18); CALCIUM 8.1 mg/dL (8.5-10.1); CARBON DIOXIDE,CO2 23 mmol/L (21-32); CHLORIDE,CL 106 mmol/L (100-108); CREATININE 0.7 mg/dL (0.6-1.0); ESTIMATED GFR 105 mL/min (>60); GLUCOSE RANDOM 75 mg/dL (74-106); POTASSIUM,K 3.7 mmol/L (3.6-5.2); SODIUM,NA 138 mmol/L (140-148)
[2023-06-07 05:57] LABS: ANION GAP 12.7 mmol/L (5.0-14.0)
[2023-06-07 13:29] VITALS: BP 113/77; PULSE 88
== END 2023-06-07 14:45 | disposition home or self-care (01) | DRG 638 ==
LOC: JP.ED 09:54 → JP.ICU 13:36
PROVIDERS: ADMIT Internal Medicine; ATTEND Internal Medicine
DX: E11.10 Type 2 diabetes mellitus with ketoacidosis without coma (principal); E87.1 Hypo-osmolality and hyponatremia; N17.9 Acute kidney failure, unspecified; E87.5 Hyperkalemia; J44.9 Chronic obstructive pulmonary disease, unspecified; F41.9 Anxiety disorder, unspecified; F32.A Depression, unspecified; F17.210 Nicotine dependence, cigarettes, uncomplicated; Z85.3 Personal history of malignant neoplasm of breast; Z85.41 Personal history of malignant neoplasm of cervix uteri; Z86.16 Personal history of COVID-19; Z90.49 Acquired absence of other specified parts of digestive tract; Z90.710 Acquired absence of both cervix and uterus; Z90.10 Acquired absence of unspecified breast and nipple; Z88.8 Allergy status to other drugs, medicaments and biological substances; Z88.5 Allergy status to narcotic agent; Z79.4 Long term (current) use of insulin; Z79.899 Other long term (current) drug therapy; Z87.01 Personal history of pneumonia (recurrent); Z87.81 Personal history of (healed) traumatic fracture
CPT/HCPCS: 0241U; 36415; 80048; 80053; 80305-QW; 81001; 82947; 85025; 85027; 96361; 96374; 99223; 99238; 99283; 99285-25; A9270-GY; J1815; J1815-GY; J2405; J7030; Q0162

== ENCOUNTER 2023-12-28 06:01 | Emergency (ER) | payer MEDICAID ==
[2023-12-28 06:34] VITALS: BP 141/80; PULSE 94
[2023-12-28 06:36] LABS: BASOPHILS ABSOLUTE AUTO 0.03 K/uL (0.00-0.10); BASOPHILS PERCENT AUTO 0.4 % (0.1-1.3); EOSINOPHILS ABSOLUTE AUTO 0.19 K/uL (0.00-0.40); EOSINOPHILS PERCENT AUTO 2.4 % (0.0-5.4); HEMATOCRIT 35.7 % (34.3-46.0); IMMATURE GRAN PERCENT AUTO 0.3 % (0.0-0.7); LYMPHOCYTES ABSOLUTE AUTO 1.66 K/uL (0.8-3.3); LYMPHOCYTES PERCENT AUTO 21.1 % (11.4-47.7); MEAN CORPUSCULAR HEMOGLOBIN 28.1 pg (31.6-35.5); MEAN CORPUSCULAR HGB CONC 33.6 g/dL (31.6-35.5); MEAN CORPUSCULAR VOLUME 83.6 fL (81.4-99.0); MONOCYTES PERCENT AUTO 7.6 % (3.3-12.6); NEUTROPHILS ABSOLUTE AUTO 5.38 K/uL (1.0-7.6); NEUTROPHILS PERCENT AUTO 68.2 % (40.0-78.1); PLATELET COUNT,PLT 285 K/uL (130-375); RED BLOOD CELL COUNT 4.27 M/uL (3.77-5.24); WHITE BLOOD CELL COUNT,WBC 7.9 K/uL (3.2-11.0)
[2023-12-28 06:37] LABS: IMMATURE GRAN ABSOLUTE AUTO 0.02 K/uL (0.00-0.23)
[2023-12-28] MEDS: Ketorolac 30 MG/ML SDV IM ONE (07:07)
[2023-12-28 08:31] LABS: APPEARANCE,URINE CLEAR (CLEAR); BILIRUBIN,URINE NEGATIVE (NEGATIVE); COLOR,URINE YELLOW (YELLOW); GLUCOSE,URINE 500 mg/dL (NEGATIVE); KETONES,URINE NEGATIVE (NEGATIVE); LEUKOCYTE ESTERASE,URINE NEGATIVE (NEGATIVE); NITRITE,URINE NEGATIVE (NEGATIVE); OCCULT BLOOD,URINE NEGATIVE (NEGATIVE); PH,URINE 6.5 (5.0-8.0); PROTEIN,URINE NEGATIVE (NEGATIVE); UROBILINOGEN,URINE 0.2 EU/dL (0.2-1.0)
[2023-12-28 08:34] LABS: THC SCREEN,URINE 50 NG/ML PRESUMPTIVE POSITIVE (NEGATIVE)
[2023-12-28 08:35] LABS: AMPHETAMINES SCREEN, URINE NEGATIVE (NEGATIVE); BARBITURATE SCREEN,URINE NEGATIVE (NEGATIVE); BENZODIAZEPINES SCREEN,URINE NEGATIVE (NEGATIVE); OXYCODONE SCREEN,URINE NEGATIVE (NEGATIVE); PROPOXYPHENE SCREEN,URINE NEGATIVE (NEGATIVE)
[2023-12-28 08:36] LABS: METHADONE SCREEN, URINE NEGATIVE (NEGATIVE); METHAMPHETAMINES SCREEN, URINE PRESUMPTIVE POSITIVE (NEGATIVE)
[2023-12-28 08:39] LABS: AMORPHOUS SEDIMENT,URINE NOT SEEN; BACTERIA,URINE RARE; EPITHELIAL CELLS,URINE RARE; MUCUS,URINE NOT SEEN; RBC,URINE 0-5 (0-5); WBC,URINE 0-5 (0-5)
== END 2023-12-28 09:16 | disposition home or self-care (01) ==
LOC: JP.ED 06:01
DX: R07.89 Other chest pain (principal); R07.81 Pleurodynia; J44.89 Other specified chronic obstructive pulmonary disease; E10.9 Type 1 diabetes mellitus without complications; Z90.49 Acquired absence of other specified parts of digestive tract; Z90.13 Acquired absence of bilateral breasts and nipples; Z90.710 Acquired absence of both cervix and uterus; Z88.6 Allergy status to analgesic agent; Z88.5 Allergy status to narcotic agent; Z79.4 Long term (current) use of insulin; Z79.899 Other long term (current) drug therapy
CPT/HCPCS: 36415; 71101; 80305; 81001; 85025; 93005; 96372; 99285; J1885

== ENCOUNTER 2024-07-16 16:38 | Emergency (ER) | payer MEDICAID ==
[2024-07-16 17:09] LABS: BASOPHILS ABSOLUTE AUTO 0.04 K/uL (0.00-0.10); BASOPHILS PERCENT AUTO 0.5 % (0.1-1.3); EOSINOPHILS ABSOLUTE AUTO 0.14 K/uL (0.00-0.40); EOSINOPHILS PERCENT AUTO 1.7 % (0.0-5.4); HEMATOCRIT 35.5 % (34.3-46.0); IMMATURE GRAN PERCENT AUTO 0.2 % (0.0-0.7); LYMPHOCYTES ABSOLUTE AUTO 1.88 K/uL (0.8-3.3); LYMPHOCYTES PERCENT AUTO 23.3 % (11.4-47.7); MEAN CORPUSCULAR HEMOGLOBIN 26.4 pg (31.6-35.5); MEAN CORPUSCULAR VOLUME 85.1 fL (81.4-99.0); MONOCYTES ABSOLUTE AUTO 0.48 K/uL (0.20-0.90); MONOCYTES PERCENT AUTO 5.9 % (3.3-12.6); NEUTROPHILS ABSOLUTE AUTO 5.52 K/uL (1.0-7.6); NEUTROPHILS PERCENT AUTO 68.4 % (40.0-78.1); PLATELET COUNT,PLT 410 K/uL (130-375); RED BLOOD CELL COUNT 4.17 M/uL (3.77-5.24); WHITE BLOOD CELL COUNT,WBC 8.1 K/uL (3.2-11.0)
[2024-07-16] MEDS: Sodium Chloride 0.9% 1,000 ML IV ONE (17:09)
[2024-07-16] MEDS: Sodium Chloride 0.9% 10 ML Syringe FLUSH PRN (17:09)
[2024-07-16 17:12] LABS: IMMATURE GRAN ABSOLUTE AUTO 0.02 K/uL (0.00-0.23)
[2024-07-16 17:20] LABS: BASE EXCESS VENOUS 1.8 mm/L; BICARBONATE,VENOUS 26.3 mmol/L; CARBOXYHEMOGLOBIN 2.5 % (0.0-1.6); METHEMOGLOBIN 1.3 %; O2 SATURATION VENOUS 63.7; OXYHEMOGLOBIN 61.3 %; PCO2 VENOUS 43.5 mm/Hg; PH,VENOUS 7.399 (7.350-7.450); TOTAL HEMOGLOBIN 11.4 g/dL (12.0-16.0)
[2024-07-16 17:22] LABS: PO2 VENOUS 35.6 mm/Hg
[2024-07-16 17:39] LABS: CALCIUM 8.8 mg/dL (8.5-10.1); CREATININE 1.1 mg/dL (0.6-1.0); EST CRCL DRUG DOSING (CG) 47.32 mL/min; MAGNESIUM 1.4 mg/dL (1.8-2.4); POTASSIUM,K 5.4 mmol/L (3.6-5.2)
[2024-07-16 17:48] LABS: ANION GAP 14.4 mmol/L (5.0-14.0)
[2024-07-16] MEDS ORDERED: Glucagon,Human Recombinant 1 MG Vial IM PRN (17:50)
[2024-07-16] MEDS ORDERED: 50% Dextrose in Water 50 ML Syringe IVPUSH PRN (17:50)
[2024-07-16 17:51] VITALS: BP 147/58; PULSE 84
[2024-07-16 17:54] LABS: APPEARANCE,URINE CLEAR (CLEAR); BILIRUBIN,URINE NEGATIVE (NEGATIVE); COLOR,URINE YELLOW (YELLOW); GLUCOSE,URINE 500 mg/dL (NEGATIVE); KETONES,URINE NEGATIVE (NEGATIVE); LEUKOCYTE ESTERASE,URINE NEGATIVE (NEGATIVE); NITRITE,URINE NEGATIVE (NEGATIVE); OCCULT BLOOD,URINE NEGATIVE (NEGATIVE); PH,URINE 6.5 (5.0-8.0); PROTEIN,URINE NEGATIVE (NEGATIVE); UROBILINOGEN,URINE 0.2 EU/dL (0.2-1.0)
[2024-07-16 17:58] LABS: AMPHETAMINES SCREEN, URINE NEGATIVE (NEGATIVE); BARBITURATE SCREEN,URINE NEGATIVE (NEGATIVE); BENZODIAZEPINES SCREEN,URINE NEGATIVE (NEGATIVE); METHADONE SCREEN, URINE NEGATIVE (NEGATIVE); METHAMPHETAMINES SCREEN, URINE NEGATIVE (NEGATIVE); OXYCODONE SCREEN,URINE NEGATIVE (NEGATIVE); PROPOXYPHENE SCREEN,URINE NEGATIVE (NEGATIVE); THC SCREEN,URINE 50 NG/ML PRESUMPTIVE POSITIVE (NEGATIVE)
[2024-07-16 18:00] LABS: AMORPHOUS SEDIMENT,URINE NOT SEEN; BACTERIA,URINE NOT SEEN; EPITHELIAL CELLS,URINE FEW; MUCUS,URINE NOT SEEN; RBC,URINE NOT SEEN (0-5); WBC,URINE 0-5 (0-5)
[2024-07-16] MEDS: Insulin Regular, Human 100 Units/ML 10 ML Vial SUBCUT ONE (18:01)
[2024-07-16] MEDS: Magnesium Oxide 400 MG Tab PO ONE (18:04)
== END 2024-07-16 18:40 | disposition home or self-care (01) ==
LOC: JP.ED 16:38
DX: E87.5 Hyperkalemia (principal); E10.65 Type 1 diabetes mellitus with hyperglycemia; E83.42 Hypomagnesemia; J44.89 Other specified chronic obstructive pulmonary disease; Z90.49 Acquired absence of other specified parts of digestive tract; Z90.710 Acquired absence of both cervix and uterus; Z88.5 Allergy status to narcotic agent; Z88.6 Allergy status to analgesic agent; Z88.8 Allergy status to other drugs, medicaments and biological substances; Z79.4 Long term (current) use of insulin; Z79.899 Other long term (current) drug therapy
CPT/HCPCS: 36415; 80048; 80305; 81001; 82009; 82803; 82947; 83605; 83735; 85025; 93005; 96360; 99285; A9270; J7030

== ENCOUNTER 2024-10-30 22:45 | Emergency (ER) | payer MEDICAID ==
[2024-10-30 23:11] LABS: BASOPHILS ABSOLUTE AUTO 0.04 K/uL (0.00-0.10); BASOPHILS PERCENT AUTO 0.3 % (0.1-1.3); EOSINOPHILS ABSOLUTE AUTO 0.27 K/uL (0.00-0.40); EOSINOPHILS PERCENT AUTO 2.3 % (0.0-5.4); IMMATURE GRAN ABSOLUTE AUTO 0.05 K/uL (0.00-0.23); IMMATURE GRAN PERCENT AUTO 0.4 % (0.0-0.7); LYMPHOCYTES ABSOLUTE AUTO 2.12 K/uL (0.8-3.3); LYMPHOCYTES PERCENT AUTO 18.3 % (11.4-47.7); MONOCYTES ABSOLUTE AUTO 0.99 K/uL (0.20-0.90); MONOCYTES PERCENT AUTO 8.5 % (3.3-12.6); NEUTROPHILS ABSOLUTE AUTO 8.12 K/uL (1.0-7.6); NEUTROPHILS PERCENT AUTO 70.2 % (40.0-78.1); PLATELET COUNT,PLT 470 K/uL (130-375); RED BLOOD CELL COUNT 3.87 M/uL (3.77-5.24); WHITE BLOOD CELL COUNT,WBC 11.6 K/uL (3.2-11.0)
[2024-10-30 23:32] LABS: A/G RATIO 0.8 (1.2-2.2); ALANINE AMINOTRANSFERASE,ALT 26 U/L (12-78); ASPARTATE AMNIOTRANSFERASE,AST 19 U/L (15-37); BILIRUBIN TOTAL 0.3 mg/dL (0.2-1.0); BLOOD UREA NITROGEN,BUN 22 mg/dL (7-18); CARBON DIOXIDE,CO2 31 mmol/L (21-32); CHLORIDE,CL 106 mmol/L (100-108); CREATININE 0.9 mg/dL (0.6-1.0); EST CRCL DRUG DOSING (CG) 57.17 mL/min; ESTIMATED GFR 76 mL/min (>60); GLUCOSE RANDOM 114 mg/dL (74-106); POTASSIUM,K 4.0 mmol/L (3.6-5.2); PROTEIN TOTAL,TP 7.7 g/dL (6.4-8.2); SODIUM,NA 143 mmol/L (140-148)
[2024-10-30 23:59] LABS: APPEARANCE,URINE CLEAR (CLEAR); GLUCOSE,URINE NEGATIVE (NEGATIVE); OCCULT BLOOD,URINE NEGATIVE (NEGATIVE)
[2024-10-31 00:05] LABS: AMPHETAMINES SCREEN, URINE PRESUMPTIVE POSITIVE (NEGATIVE); METHAMPHETAMINES SCREEN, URINE PRESUMPTIVE POSITIVE (NEGATIVE); SQUAMOUS EPITHELIAL CELLS,UR MANY /HPF; UROTHELIAL CELLS,URINE NOT SEEN /HPF
[2024-10-31 00:06] LABS: METHADONE SCREEN, URINE NEGATIVE (NEGATIVE); OXYCODONE SCREEN,URINE NEGATIVE (NEGATIVE); PROPOXYPHENE SCREEN,URINE NEGATIVE (NEGATIVE); THC SCREEN,URINE 50 NG/ML PRESUMPTIVE POSITIVE (NEGATIVE)
[2024-10-31 01:50] VITALS: BP 120/68; PULSE 99
== END 2024-10-31 01:50 | disposition home or self-care (01) ==
LOC: JP.ED 22:45
DX: E10.649 Type 1 diabetes mellitus with hypoglycemia without coma (principal); E86.0 Dehydration; F15.10 Other stimulant abuse, uncomplicated; Z88.5 Allergy status to narcotic agent; Z88.8 Allergy status to other drugs, medicaments and biological substances; Z79.4 Long term (current) use of insulin; Z79.899 Other long term (current) drug therapy; Z90.49 Acquired absence of other specified parts of digestive tract; Z90.710 Acquired absence of both cervix and uterus
CPT/HCPCS: 36415; 80053; 80305; 80307; 81001; 82947; 83735; 85025; 96360; 99284; J7030; 81003

== ENCOUNTER 2024-12-14 11:29 | Inpatient (IN) | payer MEDICAID ==
[2024-12-14 12:47] LABS: BASOPHILS ABSOLUTE AUTO 0.04 K/uL (0.00-0.10); BASOPHILS PERCENT AUTO 0.5 % (0.1-1.3); EOSINOPHILS PERCENT AUTO 0.1 % (0.0-5.4); IMMATURE GRAN ABSOLUTE AUTO 0.10 K/uL (0.00-0.23); IMMATURE GRAN PERCENT AUTO 1.1 % (0.0-0.7); LYMPHOCYTES ABSOLUTE AUTO 1.50 K/uL (0.8-3.3); LYMPHOCYTES PERCENT AUTO 17.0 % (11.4-47.7); MONOCYTES ABSOLUTE AUTO 0.56 K/uL (0.20-0.90); MONOCYTES PERCENT AUTO 6.4 % (3.3-12.6); NEUTROPHILS ABSOLUTE AUTO 6.59 K/uL (1.0-7.6); NEUTROPHILS PERCENT AUTO 74.9 % (40.0-78.1); PLATELET COUNT,PLT 594 K/uL (130-375); RED BLOOD CELL COUNT 4.54 M/uL (3.77-5.24); WHITE BLOOD CELL COUNT,WBC 8.8 K/uL (3.2-11.0)
[2024-12-14 12:56] LABS: EOSINOPHILS ABSOLUTE AUTO 0.01 K/uL (0.00-0.40)
[2024-12-14 13:08] LABS: A/G RATIO 0.8 (1.2-2.2); ALANINE AMINOTRANSFERASE,ALT 25 U/L (12-78); ASPARTATE AMNIOTRANSFERASE,AST 10 U/L (15-37); BILIRUBIN TOTAL 0.4 mg/dL (0.2-1.0); BLOOD UREA NITROGEN,BUN 25 mg/dL (7-18); CHLORIDE,CL 97 mmol/L (100-108); CREATININE 1.1 mg/dL (0.6-1.0); EST CRCL DRUG DOSING (CG) 46.78 mL/min; ESTIMATED GFR 60 mL/min (>60); GLUCOSE RANDOM 351 mg/dL (74-106); POTASSIUM,K 4.8 mmol/L (3.6-5.2); PROTEIN TOTAL,TP 7.4 g/dL (6.4-8.2); SODIUM,NA 136 mmol/L (140-148)
[2024-12-14 13:09] LABS: INR 0.9
[2024-12-14 13:12] LABS: CARBON DIOXIDE,CO2 14 mmol/L (21-32)
[2024-12-14 13:38] LABS: BASE EXCESS ARTERIAL -16.8 mm/L; O2 SATURATION ARTERIAL 97.6 % (95.0-98.0); OXYHEMOGLOBIN 94.7 %; PCO2 ARTERIAL 22.3 mmHg (35.0-42.0); PO2 ARTERIAL 114.0 mmHg (75.0-100.0); TOTAL HEMOGLOBIN 10.5 g/dL (12.0-16.0)
[2024-12-14] MEDS ORDERED: 50% Dextrose in Water 50 ML Syringe IVPUSH PRN (13:38)
[2024-12-14 13:40] LABS: BICARBONATE,ARTERIAL 9.2 mmol/L (22.0-26.0)
[2024-12-14] MEDS: Ondansetron 4 MG/2 ML SDV IVPUSH ONE (13:54)
[2024-12-14 15:35] LABS: A/G RATIO 0.8 (1.2-2.2); ALANINE AMINOTRANSFERASE,ALT 24 U/L (12-78); ASPARTATE AMNIOTRANSFERASE,AST 12 U/L (15-37); BILIRUBIN TOTAL 0.3 mg/dL (0.2-1.0); BLOOD UREA NITROGEN,BUN 22 mg/dL (7-18); CHLORIDE,CL 101 mmol/L (100-108); CREATININE 1.0 mg/dL (0.6-1.0); EST CRCL DRUG DOSING (CG) 51.46 mL/min; ESTIMATED GFR 67 mL/min (>60); GLUCOSE RANDOM 317 mg/dL (74-106); POTASSIUM,K 4.7 mmol/L (3.6-5.2); PROTEIN TOTAL,TP 7.1 g/dL (6.4-8.2); SODIUM,NA 138 mmol/L (140-148)
[2024-12-14 15:39] LABS: CARBON DIOXIDE,CO2 11 mmol/L (21-32)
[2024-12-14] MEDS: Heparin Sodium 5,000 Units/ML Vial SUBCUT SCH (16:01)
[2024-12-14] MEDS: Ondansetron 4 MG/2 ML SDV IVPUSH PRN (17:01)
[2024-12-14 20:01] LABS: BLOOD UREA NITROGEN,BUN 17.0 mg/dL (7-18); CHLORIDE,CL 107.0 mmol/L (100-108); CREATININE 0.8 mg/dL (0.6-1.0); EST CRCL DRUG DOSING (CG) 64.32 mL/min; ESTIMATED GFR 88.0 mL/min (>60); GLUCOSE RANDOM 250.0 mg/dL (74-106); POTASSIUM,K 4.1 mmol/L (3.6-5.2); SODIUM,NA 139.0 mmol/L (140-148)
[2024-12-14 20:03] LABS: CARBON DIOXIDE,CO2 15.0 mmol/L (21-32)
[2024-12-14] MEDS: Prochlorperazine 10 MG/2 ML SDV IVPUSH PRN (20:03)
[2024-12-14 23:00] LABS: APPEARANCE,URINE CLEAR (CLEAR); GLUCOSE,URINE 500 mg/dL (NEGATIVE); OCCULT BLOOD,URINE TRACE-LYSED (NEGATIVE)
[2024-12-14 23:05] LABS: AMPHETAMINES SCREEN, URINE NEGATIVE (NEGATIVE); METHAMPHETAMINES SCREEN, URINE PRESUMPTIVE POSITIVE (NEGATIVE)
[2024-12-14 23:06] LABS: METHADONE SCREEN, URINE NEGATIVE (NEGATIVE); OXYCODONE SCREEN,URINE NEGATIVE (NEGATIVE); PROPOXYPHENE SCREEN,URINE NEGATIVE (NEGATIVE); THC SCREEN,URINE 50 NG/ML PRESUMPTIVE POSITIVE (NEGATIVE)
[2024-12-14 23:18] LABS: SQUAMOUS EPITHELIAL CELLS,UR FEW /HPF; UROTHELIAL CELLS,URINE NOT SEEN /HPF
[2024-12-14 23:40] LABS: BLOOD UREA NITROGEN,BUN 15.0 mg/dL (7-18); CARBON DIOXIDE,CO2 17.0 mmol/L (21-32); CHLORIDE,CL 105.0 mmol/L (100-108); CREATININE 0.8 mg/dL (0.6-1.0); EST CRCL DRUG DOSING (CG) 64.32 mL/min; ESTIMATED GFR 88.0 mL/min (>60); GLUCOSE RANDOM 287.0 mg/dL (74-106); POTASSIUM,K 4.2 mmol/L (3.6-5.2); SODIUM,NA 136.0 mmol/L (140-148)
[2024-12-15 03:36] LABS: BASOPHILS PERCENT AUTO 0.1 % (0.1-1.3); EOSINOPHILS PERCENT AUTO 0.1 % (0.0-5.4); IMMATURE GRAN ABSOLUTE AUTO 0.07 K/uL (0.00-0.23); IMMATURE GRAN PERCENT AUTO 0.6 % (0.0-0.7); LYMPHOCYTES ABSOLUTE AUTO 1.37 K/uL (0.8-3.3); LYMPHOCYTES PERCENT AUTO 11.7 % (11.4-47.7); MONOCYTES ABSOLUTE AUTO 0.81 K/uL (0.20-0.90); MONOCYTES PERCENT AUTO 6.9 % (3.3-12.6); NEUTROPHILS ABSOLUTE AUTO 9.43 K/uL (1.0-7.6); NEUTROPHILS PERCENT AUTO 80.6 % (40.0-78.1); PLATELET COUNT,PLT 510 K/uL (130-375); RED BLOOD CELL COUNT 3.82 M/uL (3.77-5.24); WHITE BLOOD CELL COUNT,WBC 11.7 K/uL (3.2-11.0)
[2024-12-15 03:45] LABS: BASOPHILS ABSOLUTE AUTO 0.01 K/uL (0.00-0.10); EOSINOPHILS ABSOLUTE AUTO 0.01 K/uL (0.00-0.40)
[2024-12-15 03:51] LABS: BLOOD UREA NITROGEN,BUN 12.0 mg/dL (7-18); CARBON DIOXIDE,CO2 21.0 mmol/L (21-32); CHLORIDE,CL 104.0 mmol/L (100-108); CREATININE 0.8 mg/dL (0.6-1.0); EST CRCL DRUG DOSING (CG) 64.32 mL/min; ESTIMATED GFR 88.0 mL/min (>60); GLUCOSE RANDOM 273.0 mg/dL (74-106); POTASSIUM,K 3.4 mmol/L (3.6-5.2); SODIUM,NA 134.0 mmol/L (140-148)
[2024-12-15 08:07] LABS: BLOOD UREA NITROGEN,BUN 11.0 mg/dL (7-18); CARBON DIOXIDE,CO2 20.0 mmol/L (21-32); CHLORIDE,CL 106.0 mmol/L (100-108); CREATININE 0.8 mg/dL (0.6-1.0); EST CRCL DRUG DOSING (CG) 64.32 mL/min; ESTIMATED GFR 88.0 mL/min (>60); GLUCOSE RANDOM 207.0 mg/dL (74-106); POTASSIUM,K 3.0 mmol/L (3.6-5.2); SODIUM,NA 136.0 mmol/L (140-148)
[2024-12-15] MEDS ORDERED: 50% Dextrose in Water 50 ML Syringe IVPUSH PRN (09:18)
[2024-12-15] MEDS: Insulin Glargine,Human Rec. Analog 100 Units/ML 3 ML Pen SUBCUT SCH (09:57)
[2024-12-15] MEDS: Insulin Lispro 100 Unit/ML 3 ML KwikPen SUBCUT SCH (11:09)
[2024-12-15 15:22] LABS: BLOOD UREA NITROGEN,BUN 8.0 mg/dL (7-18); CARBON DIOXIDE,CO2 21.0 mmol/L (21-32); CHLORIDE,CL 106.0 mmol/L (100-108); CREATININE 0.5 mg/dL (0.6-1.0); EST CRCL DRUG DOSING (CG) 102.02 mL/min; ESTIMATED GFR 112.0 mL/min (>60); GLUCOSE RANDOM 99.0 mg/dL (74-106); POTASSIUM,K 3.5 mmol/L (3.6-5.2); SODIUM,NA 136.0 mmol/L (140-148)
[2024-12-15] MEDS: Potassium Chloride 20 MEQ Tab.ER PO ONE (19:15)
[2024-12-16 06:00] LABS: PLATELET COUNT,PLT 465.0 K/uL (130-375); RED BLOOD CELL COUNT 3.96 M/uL (3.77-5.24); WHITE BLOOD CELL COUNT,WBC 8.8 K/uL (3.2-11.0)
[2024-12-16 06:23] LABS: BLOOD UREA NITROGEN,BUN 5.0 mg/dL (7-18); CARBON DIOXIDE,CO2 23.0 mmol/L (21-32); CHLORIDE,CL 110.0 mmol/L (100-108); CREATININE 0.5 mg/dL (0.6-1.0); EST CRCL DRUG DOSING (CG) 102.02 mL/min; ESTIMATED GFR 112.0 mL/min (>60); GLUCOSE RANDOM 53.0 mg/dL (74-106); POTASSIUM,K 3.2 mmol/L (3.6-5.2); SODIUM,NA 141.0 mmol/L (140-148)
[2024-12-16] MEDS ORDERED: ATOMOXETINE HCL 40 MG PO SCH (09:00)
[2024-12-16] MEDS: Potassium Chloride 20 MEQ Tab.ER PO ONE (09:20)
[2024-12-16] MEDS: Insulin Glargine,Human Rec. Analog 100 Units/ML 3 ML Pen SUBCUT SCH (09:54)
[2024-12-17 06:01] LABS: BLOOD UREA NITROGEN,BUN 5.0 mg/dL (7-18); CARBON DIOXIDE,CO2 26.0 mmol/L (21-32); CHLORIDE,CL 106.0 mmol/L (100-108); CREATININE 0.5 mg/dL (0.6-1.0); EST CRCL DRUG DOSING (CG) 102.02 mL/min; ESTIMATED GFR 112.0 mL/min (>60); GLUCOSE RANDOM 155.0 mg/dL (74-106); POTASSIUM,K 3.4 mmol/L (3.6-5.2); SODIUM,NA 139.0 mmol/L (140-148)
[2024-12-17] MEDS: Potassium Chloride 20 MEQ Tab.ER PO ONE (10:18)
[2024-12-17 14:10] VITALS: BP 119/83; PULSE 84
[2024-12-17 16:20] LABS: BETA-HYDROXYBUTYRIC ACID 104.1 mg/dL (0.0-3.0)
== END 2024-12-17 13:45 | disposition home or self-care (01) | DRG 638 ==
LOC: JP.ED 11:29 → JP.ICU 14:08
PROVIDERS: ADMIT Student in an Organized Health Care Education/Training Program; ATTEND Internal Medicine
DX: E10.10 Type 1 diabetes mellitus with ketoacidosis without coma (principal); L02.412 Cutaneous abscess of left axilla; F32.9 Major depressive disorder, single episode, unspecified; F17.210 Nicotine dependence, cigarettes, uncomplicated; F12.90 Cannabis use, unspecified, uncomplicated; F60.3 Borderline personality disorder; J44.89 Other specified chronic obstructive pulmonary disease; F41.9 Anxiety disorder, unspecified; L98.A1 Non-pressure chronic ulcer of upper arm; F15.10 Other stimulant abuse, uncomplicated; B95.62 Methicillin resistant Staphylococcus aureus infection as the cause of diseases classified elsewhere; Z88.6 Allergy status to analgesic agent; Z88.8 Allergy status to other drugs, medicaments and biological substances; Z88.5 Allergy status to narcotic agent; Z79.4 Long term (current) use of insulin; Z79.899 Other long term (current) drug therapy; Z92.21 Personal history of antineoplastic chemotherapy; Z87.01 Personal history of pneumonia (recurrent); Z87.440 Personal history of urinary (tract) infections; Z85.3 Personal history of malignant neoplasm of breast; Z86.16 Personal history of COVID-19; Z90.710 Acquired absence of both cervix and uterus; Z90.10 Acquired absence of unspecified breast and nipple; Z98.890 Other specified postprocedural states
CPT/HCPCS: 36415; 36600; 80048; 80053; 80202; 80305-QW; 81001; 82010; 82803; 82947; 85025; 85027; 85610; 87070; 87077; 87186; 87205; 96361; 96374; 99223; 99232; 99238; 99285; 99285-25; A9270-GY; J0692; J0780; J1171; J1644; J1815-GY; J2405; J3373; J3480; J7030; J7050; S5010